=== PATIENT | female | born 1980 | race Caucasian/White ===

== ENCOUNTER → 2016-08-19 | Outpatient (CLI) | payer OTHER ==
[~2016-08-19] MED LIST: ALBU17IN INH; ATIV1TAB7 PO; BACL10TA2 PO; COLA100C PO; DIAZ5TAB PO; DOCQ100C AD; FAMO20TA PO; FLUO20CA9 PO; GABA-283 PO; GABA300C3 PO; HYDR-4274 PO; HYDR12.55 PO; HYDR25T PO; HYDR25TAB PO; KLON1TAB PO; LISI-538 PO; MELO15TA4 PO; METH75TA PO; NICO14PA TD; NORT25CA2 PO; PAXI20TA3 PO; PRAZ1CAP PO; PRAZ2CAP PO; PROZ20CA11 PO; TIZA6CAP3 PO; VIST25CA PO; ZANT300T PO; ZIPR20CA13 PO
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
== END ==
LOC: M PAIN 09:20
PROVIDERS: ATTEND Nurse Practitioner Family
DX: Z09 Encounter for follow-up examination after completed treatment for conditions other than malignant neoplasm (principal); G89.29 Other chronic pain; M70.62 Trochanteric bursitis, left hip; M79.1 Myalgia; M47.12 Other spondylosis with myelopathy, cervical region; G43.709 Chronic migraine without aura, not intractable, without status migrainosus; I10 Essential (primary) hypertension; M70.61 Trochanteric bursitis, right hip; F31.9 Bipolar disorder, unspecified; F17.200 Nicotine dependence, unspecified, uncomplicated; Z88.0 Allergy status to penicillin; Z91.040 Latex allergy status; Z88.8 Allergy status to other drugs, medicaments and biological substances; Z79.891 Long term (current) use of opiate analgesic; Z79.899 Other long term (current) drug therapy; Z87.820 Personal history of traumatic brain injury; Z91.410 Personal history of adult physical and sexual abuse

== ENCOUNTER → 2016-09-09 | Outpatient (CLI) | payer OTHER ==
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
== END ==
LOC: M PAIN 10:40
PROVIDERS: ATTEND Nurse Practitioner Family
DX: M70.62 Trochanteric bursitis, left hip (principal); M79.1 Myalgia; M47.12 Other spondylosis with myelopathy, cervical region; G43.709 Chronic migraine without aura, not intractable, without status migrainosus; Z79.891 Long term (current) use of opiate analgesic; Z79.899 Other long term (current) drug therapy; M70.61 Trochanteric bursitis, right hip; I10 Essential (primary) hypertension; J45.20 Mild intermittent asthma, uncomplicated; M43.06 Spondylolysis, lumbar region; Z88.0 Allergy status to penicillin; Z88.8 Allergy status to other drugs, medicaments and biological substances; Z91.040 Latex allergy status

== ENCOUNTER 2016-10-09 11:28 | Emergency (ER) | payer OTHER ==
[~2016-10-09] VITALS: Ht 162.6 cm; Wt 124.7 kg
[2016-10-09 11:28] VITALS: BP 129/70
[~2016-10-09 11:28] MED LIST changes: -HYDR-3713 PO; -KLON0.5T PO; -LORA10TA2 PO; -MACR100C3 PO; -MUCI600T34 PO; -PRIL20CA9 PO; -SING5CHW23 PO; -TINAZIDINE; -TOPI1TAB31 PO; -WELLTAB38 PO
[2016-10-09] MEDS ORDERED: SING5CHW23 PO (11:51)
[2016-10-09] MEDS ORDERED: WELLTAB38 PO (11:51)
[2016-10-09] MEDS ORDERED: TINAZIDINE (11:51)
[2016-10-09] MEDS ORDERED: PRIL20CA9 PO (11:51)
[2016-10-09] MEDS ORDERED: HYDR-3713 PO (11:51)
[2016-10-09] MEDS ORDERED: KLON0.5T PO (11:51)
[2016-10-09] MEDS ORDERED: MUCI600T34 PO (11:51)
[2016-10-09] MEDS ORDERED: HYDR12.55 PO (11:51)
[2016-10-09] MEDS ORDERED: LORA10TA2 PO (11:51)
[2016-10-09] MEDS ORDERED: TOPI1TAB31 PO (11:51)
[2016-10-09] MEDS ORDERED: MACR100C3 PO (13:07)
== END 2016-10-09 13:19 | disposition home or self-care (01) ==
LOC: M ED 12:45
DX: N39.0 Urinary tract infection, site not specified (principal); N92.1 Excessive and frequent menstruation with irregular cycle

== ENCOUNTER → 2016-10-09 | Outpatient (CLI) | payer OTHER ==
[~2016-10-09] MED LIST changes: +HYDR-3713 PO; +KLON0.5T PO; +LORA10TA2 PO; +MACR100C3 PO; +MUCI600T34 PO; +PRIL20CA9 PO; +SING5CHW23 PO; +TINAZIDINE; +TOPI1TAB31 PO; +WELLTAB38 PO
[2016-10-09 14:05] LABS: BASO # 0.1 K/mm3 (0.0-0.2); BASO % 0.7 % (0.0-1.0); EOS # 0.6 K/mm3 (0.0-0.50); EOS % 4.7 % (0.0-3.0); LARGE UNSTAINED CELL # 0.2 K/mm3 (0.0-0.4); LARGE UNSTAINED CELL % 1.4 % (0.0-4.0); LYMPH # 2.7 K/mm3 (1.5-4.5); LYMPH % 20.3 % (24.0-44.0); MEAN CORPUSCULAR HGB CONC 30.8 g/dl (32.0-36.5); MEAN CORPUSCULAR VOLUME 84.5 fl (80.0-96.0); MONO # 0.6 K/mm3 (0.0-0.8); NEUTROPHILS # 8.5 K/mm3 (1.8-7.7); PLATELET COUNT, AUTOMATED 357 k/mm3 (150-450); RED CELL DISTRIBUTION WIDTH 17.4 % (11.5-14.5); WHITE BLOOD COUNT 12.5 K/mm3 (4.0-10.0)
[2016-10-09 14:31] LABS: ALBUMIN 3.4 GM/DL (3.2-5.2); ALBUMIN/GLOBULIN RATIO 0.92 (1.00-1.93); ALKALINE PHOSPHATASE 129 U/L (45-117); ALT/SGPT 15 U/L (12-78); ANION GAP 8 MEQ/L (8-16); AST/SGOT 8 U/L (15-37); BILIRUBIN,TOTAL 0.1 MG/DL (0.2-1.0); BLOOD UREA NITROGEN 14 MG/DL (7-18); CALCIUM LEVEL 8.8 MG/DL (8.5-10.1); CARBON DIOXIDE LEVEL 28 MEQ/L (21-32); CHLORIDE LEVEL 107 MEQ/L (98-107); CHOLESTEROL LEVEL 182 MG/DL (<200); CREATININE FOR GFR 0.91 MG/DL (0.55-1.02); GLOMERULAR FILTRATION RATE > 60.0 (>60); GLUCOSE, FASTING 100 MG/DL (70-105); POTASSIUM SERUM 3.5 MEQ/L (3.5-5.1); SODIUM LEVEL 143 MEQ/L (136-145); TOTAL PROTEIN 7.1 GM/DL (6.4-8.2); TRIGLYCERIDES LEVEL 116 MG/DL (<150)
== END ==
LOC: M LAB 13:25
PROVIDERS: ATTEND Family Medicine Addiction Medicine
DX: R00.0 Tachycardia, unspecified (principal)

== ENCOUNTER → 2016-10-14 | Outpatient (CLI) | payer OTHER ==
[~2016-10-14] MED LIST changes: +HYDR-3713 PO; +KLON0.5T PO; +LORA10TA2 PO; +MACR100C3 PO; +MUCI600T34 PO; +PRIL20CA9 PO; +SING5CHW23 PO; +TINAZIDINE; +TOPI1TAB31 PO; +WELLTAB38 PO
--- NOTE | 2016-10-14 11:38 | REP ---
Clinical: Pain with recent trauma/fall. Comparison: 07/22/2015. Technique: AP, lateral, bilateral oblique, flexion/extension and coned-down views. Findings: The alignment and lordosis maintained and there is no evidence for acute fracture / compression injury or subluxation. Moderate degenerative disc osteophyte complex at the L4-5 and L5-S1 levels again noted and essentially unchanged. Findings include anterior osteophytes with endplate sclerosis and disc space narrowing and mild hypertrophic facet changes. Impression: 1. No acute fracture / compression injury or subluxation. 2. Moderate degenerative disc osteophyte complex at the L4-5 and L5-S1 levels. Signed by Gudreep Ramos MD 10/14/2016 11:30 A
== END ==
LOC: M RAD 11:04
PROVIDERS: ATTEND Nurse Practitioner Family
DX: M51.36 Other intervertebral disc degeneration, lumbar region (principal); M51.37 Other intervertebral disc degeneration, lumbosacral region

== ENCOUNTER → 2016-10-14 | Outpatient (CLI) | payer OTHER ==
[~2016-10-14] MED LIST changes: -COLA100C PO; +COLA100C3 PO; +GABA-282 PO; -GABA300C3 PO
== END ==
LOC: M PAIN 10:00
PROVIDERS: ATTEND Nurse Practitioner Family
DX: M79.1 Myalgia (principal); M43.06 Spondylolysis, lumbar region; Z79.891 Long term (current) use of opiate analgesic; Z79.899 Other long term (current) drug therapy; I10 Essential (primary) hypertension; G43.709 Chronic migraine without aura, not intractable, without status migrainosus; J45.20 Mild intermittent asthma, uncomplicated; Z88.0 Allergy status to penicillin; Z88.8 Allergy status to other drugs, medicaments and biological substances; Z91.040 Latex allergy status

== ENCOUNTER → 2016-11-09 | Outpatient (CLI) | payer OTHER ==
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
== END ==
LOC: M PAIN 10:00
PROVIDERS: ATTEND Nurse Practitioner Family
DX: M79.1 Myalgia (principal); M43.06 Spondylolysis, lumbar region; I10 Essential (primary) hypertension; K30 Functional dyspepsia; Z79.891 Long term (current) use of opiate analgesic; Z79.899 Other long term (current) drug therapy; Z88.0 Allergy status to penicillin; Z88.8 Allergy status to other drugs, medicaments and biological substances; Z91.040 Latex allergy status

== ENCOUNTER → 2016-11-24 | Outpatient (CLI) | payer OTHER ==
--- NOTE | 2016-11-24 12:29 | REP ---
Maxillofacial CT study without IV contrast: History: Recurrent sinusitis. No comparison imaging. Technique: Helical scanning is acquired and 3 mm contiguous axial images are reformatted. Coronal multiplanar re-formation images are generated and reviewed. Maxillofacial CT findings: The maxilla is edentulous. The frontal, ethmoidal, sphenoidal, maxillary, and mastoid aeration is normal. There is minimal mucosal thickening in the floor of the left maxillary sinus. Bony sinus margins are intact. No bony destructive lesion is seen. No intraorbital abnormality is appreciated. The visualized intracranial structures are unremarkable. Bony nasal septum deviates somewhat to the left without a visible beak. Nasal turbinate soft tissues are symmetric. There is mild bilateral narrowing of the OMCs. No significant malformation is seen. Nasal ethmoid recesses are patent. Impression: Minimal mucosal thickening floor of the left maxillary sinus. Otherwise negative. Signed by Ken Cook MD 11/24/2016 01:00 P
== END ==
LOC: M RAD 09:03
PROVIDERS: ATTEND Otolaryngology
DX: J32.0 Chronic maxillary sinusitis (principal)

== ENCOUNTER → 2016-12-20 | Outpatient (CLI) | payer OTHER ==
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
== END ==
LOC: M PAIN 10:00
PROVIDERS: ATTEND Nurse Practitioner Family
DX: M79.1 Myalgia (principal); M43.06 Spondylolysis, lumbar region; G89.29 Other chronic pain; Z79.891 Long term (current) use of opiate analgesic; Z79.899 Other long term (current) drug therapy; Z88.0 Allergy status to penicillin; Z88.8 Allergy status to other drugs, medicaments and biological substances; Z91.040 Latex allergy status; I10 Essential (primary) hypertension; J45.20 Mild intermittent asthma, uncomplicated; M47.12 Other spondylosis with myelopathy, cervical region; G43.709 Chronic migraine without aura, not intractable, without status migrainosus; M70.62 Trochanteric bursitis, left hip; M70.61 Trochanteric bursitis, right hip

== ENCOUNTER → 2017-01-18 | Outpatient (CLI) | payer OTHER ==
[~2017-01-18] MED LIST changes: +CHERSYP3 PO; -COLA100C3 PO; +COLA100C5 PO; +CYCL5TAB PO; +FLUO20CA19 PO; -FLUO20CA9 PO; +HYDR-3363 PO; +HYDR-3713; -HYDR-4274 PO; -HYDR25T PO; +HYDR50TA70 PO; +IBUP80TA PO; +IMIT50TA PO; +IPRASOL4 IN; +LEVA750T7 PO; -MACR100C3 PO; +MACR100C43 PO; -MUCI600T34 PO; +MUCI600T37 PO; +PAXI20TA29 PO; -PAXI20TA3 PO; +RANI15TA PO; +REXU1TAB3; +TESS100C PO; +TOPI100T9 PO; -TOPI1TAB31 PO
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
== END ==
LOC: M PAIN 14:40
PROVIDERS: ATTEND Nurse Practitioner Family
DX: M54.2 Cervicalgia (principal); M79.1 Myalgia; M43.06 Spondylolysis, lumbar region; Z79.891 Long term (current) use of opiate analgesic; Z79.899 Other long term (current) drug therapy; Z88.0 Allergy status to penicillin; Z88.8 Allergy status to other drugs, medicaments and biological substances; Z91.040 Latex allergy status; I10 Essential (primary) hypertension; G43.709 Chronic migraine without aura, not intractable, without status migrainosus

== ENCOUNTER → 2017-02-14 | Outpatient (CLI) | payer OTHER | LOC: M PAIN 11:00 | PROVIDERS: ATTEND Nurse Practitioner Family | DX: M79.1 Myalgia (principal); Z53.20 Procedure and treatment not carried out because of patient's decision for unspecified reasons ==

== ENCOUNTER → 2017-02-22 | Outpatient (CLI) | payer OTHER ==
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
== END ==
LOC: M PAIN 14:15
PROVIDERS: ATTEND Nurse Practitioner Family
DX: G89.29 Other chronic pain (principal); M43.06 Spondylolysis, lumbar region; G43.709 Chronic migraine without aura, not intractable, without status migrainosus; M47.12 Other spondylosis with myelopathy, cervical region; M79.1 Myalgia; I10 Essential (primary) hypertension; K21.9 Gastro-esophageal reflux disease without esophagitis; F31.9 Bipolar disorder, unspecified; Z88.0 Allergy status to penicillin; Z91.040 Latex allergy status; Z88.8 Allergy status to other drugs, medicaments and biological substances; Z79.891 Long term (current) use of opiate analgesic; Z79.899 Other long term (current) drug therapy

== ENCOUNTER → 2017-04-12 | Outpatient (CLI) | payer OTHER ==
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
== END ==
LOC: M PAIN 13:45
PROVIDERS: ATTEND Nurse Practitioner Family
DX: G89.29 Other chronic pain (principal); M43.06 Spondylolysis, lumbar region; G43.709 Chronic migraine without aura, not intractable, without status migrainosus; M47.12 Other spondylosis with myelopathy, cervical region; M79.1 Myalgia; I10 Essential (primary) hypertension; F31.9 Bipolar disorder, unspecified; F17.210 Nicotine dependence, cigarettes, uncomplicated; Z88.0 Allergy status to penicillin; Z91.040 Latex allergy status; Z88.8 Allergy status to other drugs, medicaments and biological substances; Z79.899 Other long term (current) drug therapy

== ENCOUNTER → 2017-04-26 | Outpatient (CLI) | payer OTHER ==
[~2017-04-26] MED LIST changes: +BUPIVACAINE HCL 0.25% 10 ML VIAL As Ordered ONE; +BUPIVACAINE HCL 0.25% 30 ML VIAL As Ordered ONE; +TRIAMCINOLONE ACETONIDE SUSP 40 MG/ML VIAL (J3301) As Ordered ONE; +diazePAM 5 MG TAB As Ordered ONE; +oxyCODONE 5MG TAB As Ordered ONE
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
== END ==
LOC: M PAIN 14:30
PROVIDERS: ATTEND Anesthesiology
DX: G89.29 Other chronic pain (principal); M79.1 Myalgia; Z79.891 Long term (current) use of opiate analgesic; Z79.899 Other long term (current) drug therapy; I10 Essential (primary) hypertension; F31.9 Bipolar disorder, unspecified; F17.210 Nicotine dependence, cigarettes, uncomplicated; Z88.0 Allergy status to penicillin; Z91.040 Latex allergy status; Z88.8 Allergy status to other drugs, medicaments and biological substances
CPT/HCPCS: 20553; J3301

== ENCOUNTER 2017-04-28 09:47 | Emergency (ER) | payer OTHER ==
[~2017-04-28] VITALS: Ht 162.6 cm; Wt 131.4 kg
[~2017-04-28 09:47] MED LIST changes: -BUPIVACAINE HCL 0.25% 10 ML VIAL As Ordered ONE; -BUPIVACAINE HCL 0.25% 30 ML VIAL As Ordered ONE; -CHERSYP3 PO; -CYCL5TAB PO; -HYDR-3713; -IBUP80TA PO; -IMIT50TA PO; -IPRASOL4 IN; -LEVA750T7 PO; -RANI15TA PO; -REXU1TAB3; -TESS100C PO; -TRIAMCINOLONE ACETONIDE SUSP 40 MG/ML VIAL (J3301) As Ordered ONE; -diazePAM 5 MG TAB As Ordered ONE; -oxyCODONE 5MG TAB As Ordered ONE
[2017-04-28] MEDS ORDERED: RANI15TA PO (09:58)
[2017-04-28] MEDS ORDERED: REXU1TAB3 (09:58)
[2017-04-28] MEDS ORDERED: NORCO, ANEXSIA 5/325MG TABLET (HYDROcodone/ACETAMINOPHEN) PO ONE (10:15)
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
[2017-04-28] MEDS ORDERED: IBUP80TA PO (11:14)
[2017-04-28 11:28] VITALS: BP 124/86
== END 2017-04-28 11:29 | disposition home or self-care (01) ==
LOC: M ED 09:47
DX: S70.01XA Contusion of right hip, initial encounter (principal); S80.01XA Contusion of right knee, initial encounter; J45.909 Unspecified asthma, uncomplicated; K58.9 Irritable bowel syndrome, unspecified; M79.7 Fibromyalgia; F31.9 Bipolar disorder, unspecified; M54.5 Low back pain; F17.210 Nicotine dependence, cigarettes, uncomplicated; W10.9XXA Fall (on) (from) unspecified stairs and steps, initial encounter; Y92.018 Other place in single-family (private) house as the place of occurrence of the external cause; Y99.9 Unspecified external cause status; Y93.9 Activity, unspecified; Z88.0 Allergy status to penicillin; Z88.8 Allergy status to other drugs, medicaments and biological substances; Z91.040 Latex allergy status; Z79.899 Other long term (current) drug therapy

== ENCOUNTER → 2017-05-08 | Outpatient (REF) | payer OTHER ==
[~2017-05-08] MED LIST changes: +CHERSYP3 PO; +CYCL5TAB PO; +HYDR-3713; +IBUP80TA PO; +IMIT50TA PO; +IPRASOL4 IN; +LEVA750T7 PO; +RANI15TA PO; +REXU1TAB3; +TESS100C PO
== END ==
LOC: M LAB REF 16:11
PROVIDERS: ATTEND Physician Assistant
DX: N39.0 Urinary tract infection, site not specified (principal)

== ENCOUNTER 2017-05-10 18:46 | Emergency (ER) | payer OTHER ==
[~2017-05-10] VITALS: Ht 165.1 cm; Wt 131.4 kg
[~2017-05-10 18:46] MED LIST changes: -CHERSYP3 PO; -CYCL5TAB PO; -HYDR-3713; -IMIT50TA PO; -IPRASOL4 IN; -LEVA750T7 PO; -TESS100C PO
[2017-05-10] MEDS ORDERED: HYDR-3713 (19:06)
[2017-05-10] MEDS ORDERED: IMIT50TA PO (19:06)
[2017-05-10] MEDS ORDERED: CYCL5TAB PO (19:06)
[2017-05-10] MEDS ORDERED: IPRATROPIUM 0.5MG/ALBUTEROL 2.5MG INH SOL UD 3ML (DUONEB)(J7620) NEB ONE (20:45)
[2017-05-10 21:18] VITALS: BP 124/65
[2017-05-10] MEDS ORDERED: IPRASOL4 IN (21:44)
[2017-05-10] MEDS ORDERED: TESS100C PO (21:44)
[2017-05-10] MEDS ORDERED: CHERSYP3 PO (21:44)
[2017-05-10] MEDS ORDERED: LEVA750T7 PO (21:44)
[2017-05-10] MEDS ORDERED: LevoFLOXacin 750 MG TABLET PO ONE (22:00)
[2017-05-10] MEDS ORDERED: guaiFENesin SYRUP 200 MG/10 ML UDC PO ONE (22:00)
--- NOTE | 2017-05-11 07:53 | REP ---
PA and lateral chest: I suspect there is a small subsegmental infiltrate superimposed over the cardiac apex, likely in the lingula. There is chronic elevation of the right hemidiaphragm. Lung dave otherwise clear. Cardiac size normal. The nicolas, mediastinum, bony thorax are unremarkable. Impression: Subsegmental infiltrate in the lingula. Signed by Satish Coyne MD 05/11/2017 07:44 A
== END 2017-05-10 21:57 | disposition home or self-care (01) ==
LOC: M ED 18:46
DX: R05 Cough (principal); R06.00 Dyspnea, unspecified; J45.909 Unspecified asthma, uncomplicated; M79.7 Fibromyalgia; F41.9 Anxiety disorder, unspecified; F33.9 Major depressive disorder, recurrent, unspecified; F43.10 Post-traumatic stress disorder, unspecified; F60.9 Personality disorder, unspecified; Z79.899 Other long term (current) drug therapy; Z88.0 Allergy status to penicillin; Z88.8 Allergy status to other drugs, medicaments and biological substances; Z91.040 Latex allergy status; F17.210 Nicotine dependence, cigarettes, uncomplicated

== ENCOUNTER → 2017-05-24 | Outpatient (CLI) | payer OTHER ==
[~2017-05-24] MED LIST changes: +CHERSYP3 PO; +CYCL5TAB PO; +HYDR-3713; +IMIT50TA PO; +IPRASOL4 IN; +LEVA750T7 PO; +TESS100C PO
== END ==
LOC: M PAIN 10:15
PROVIDERS: ATTEND Nurse Practitioner Family
DX: Z53.29 Procedure and treatment not carried out because of patient's decision for other reasons (principal)

== ENCOUNTER → 2017-06-28 | Outpatient (CLI) | payer OTHER | LOC: M PAIN 10:15 | DX: G89.29 Other chronic pain (principal); M79.1 Myalgia; M43.06 Spondylolysis, lumbar region; G43.709 Chronic migraine without aura, not intractable, without status migrainosus; M47.12 Other spondylosis with myelopathy, cervical region; K21.9 Gastro-esophageal reflux disease without esophagitis; F31.89 Other bipolar disorder; F17.210 Nicotine dependence, cigarettes, uncomplicated; R03.0 Elevated blood-pressure reading, without diagnosis of hypertension; Z79.891 Long term (current) use of opiate analgesic; Z79.899 Other long term (current) drug therapy; Z88.0 Allergy status to penicillin; Z88.8 Allergy status to other drugs, medicaments and biological substances; Z91.040 Latex allergy status | CPT/HCPCS: G0463 ==

== ENCOUNTER → 2017-07-04 | Outpatient (REF) | payer OTHER | LOC: M LAB REF 17:29 | PROVIDERS: ATTEND Family Medicine Addiction Medicine | DX: Z12.4 Encounter for screening for malignant neoplasm of cervix (principal); B37.3 Candidiasis of vulva and vagina ==

== ENCOUNTER → 2017-07-24 | Outpatient (CLI) | payer OTHER ==
[2017-07-24 12:10] LABS: HEMATOCRIT 40.7 % (36.0-47.0); HEMOGLOBIN 12.3 g/dl (12.0-16.0); MEAN CORPUSCULAR HEMOGLOBIN 23.9 pg (27.0-33.0); MEAN CORPUSCULAR HGB CONC 30.2 g/dl (32.0-36.5); MEAN CORPUSCULAR VOLUME 79.2 fl (80.0-96.0); PLATELET COUNT, AUTOMATED 403 10^3/uL (150-450); RED BLOOD COUNT 5.14 10^6/uL (4.00-5.40); RED CELL DISTRIBUTION WIDTH 18.6 % (11.5-14.5); WHITE BLOOD COUNT 11.5 10^3/uL (4.0-10.0)
[2017-07-24 12:40] LABS: ALBUMIN 3.4 GM/DL (3.2-5.2); ALBUMIN/GLOBULIN RATIO 1.03 (1.00-1.93); ALKALINE PHOSPHATASE 104 U/L (45-117); ALT/SGPT 18 U/L (12-78); ANION GAP 5 MEQ/L (8-16); AST/SGOT 11 U/L (7-37); BILIRUBIN,TOTAL 0.3 MG/DL (0.2-1.0); BLOOD UREA NITROGEN 9 MG/DL (7-18); CALCIUM LEVEL 8.3 MG/DL (8.5-10.1); CARBON DIOXIDE LEVEL 35 MEQ/L (21-32); CHLORIDE LEVEL 102 MEQ/L (98-107); FREE THYROXINE INDEX 3.5 % (1.3-4.8); GLOMERULAR FILTRATION RATE > 60.0 (>60); GLUCOSE, FASTING 79 MG/DL (70-105); POTASSIUM SERUM 3.7 MEQ/L (3.5-5.1); SODIUM LEVEL 142 MEQ/L (136-145); T UPTAKE 31 % (30-39); THYROXINE (T4) 11.4 UG/DL (4.5-12.0); TOTAL PROTEIN 6.7 GM/DL (6.4-8.2)
[2017-07-24 13:53] LABS: ESTIMATED AVERAGE GLUCOSE 126 MG/DL (60-110)
== END ==
LOC: M LAB 11:13
DX: F31.32 Bipolar disorder, current episode depressed, moderate (principal)
CPT/HCPCS: 84443

== ENCOUNTER → 2017-09-07 | Outpatient (CLI) | payer OTHER | LOC: M PAIN 10:15 | DX: M79.1 Myalgia (principal); M43.06 Spondylolysis, lumbar region; G43.709 Chronic migraine without aura, not intractable, without status migrainosus; M47.12 Other spondylosis with myelopathy, cervical region; I10 Essential (primary) hypertension; F41.9 Anxiety disorder, unspecified; F43.10 Post-traumatic stress disorder, unspecified; F17.210 Nicotine dependence, cigarettes, uncomplicated; Z79.899 Other long term (current) drug therapy; Z88.0 Allergy status to penicillin; Z88.8 Allergy status to other drugs, medicaments and biological substances; Z91.040 Latex allergy status | CPT/HCPCS: G0463 ==

== ENCOUNTER 2017-11-13 15:57 | Emergency (ER) | payer OTHER ==
[2017-11-13] MEDS: IPRATROPIUM 0.5MG/ALBUTEROL 2.5MG INH SOL UD 3ML (DUONEB)(J7620) NEB (17:59)
[2017-11-13 18:34] LABS: INFLUENZA A AMPLIFICATION NEGATIVE (NEGATIVE); INFLUENZA B AMPLIFICATION NEGATIVE (NEGATIVE)
== END 2017-11-13 18:41 | disposition home or self-care (01) ==
LOC: M ED 15:57
DX: J06.9 Acute upper respiratory infection, unspecified (principal); R06.2 Wheezing; J45.909 Unspecified asthma, uncomplicated; M79.7 Fibromyalgia; K21.9 Gastro-esophageal reflux disease without esophagitis; M54.9 Dorsalgia, unspecified; F17.200 Nicotine dependence, unspecified, uncomplicated; Z79.899 Other long term (current) drug therapy; Z91.040 Latex allergy status; Z88.0 Allergy status to penicillin; Z88.8 Allergy status to other drugs, medicaments and biological substances
CPT/HCPCS: 94640

== ENCOUNTER 2018-01-07 17:05 | Inpatient (IN) | payer MEDICAID, OTHER ==
[2018-01-07 18:30] LABS: HEMATOCRIT 40.9 % (36.0-47.0); HEMOGLOBIN 12.9 g/dl (12.0-15.5); MEAN CORPUSCULAR HEMOGLOBIN 26.2 pg (27.0-33.0); MEAN CORPUSCULAR HGB CONC 31.5 g/dl (32.0-36.5); MEAN CORPUSCULAR VOLUME 83.1 fl (80.0-96.0); PLATELET COUNT, AUTOMATED 341 10^3/uL (150-450); RED BLOOD COUNT 4.92 10^6/uL (4.00-5.40); RED CELL DISTRIBUTION WIDTH 18.6 % (11.5-14.5); WHITE BLOOD COUNT 13.2 10^3/uL (4.0-10.0)
[2018-01-07] MEDS: LORazepam 2 MG TAB PO (18:36)
[2018-01-07 18:48] LABS: CONTROL LINE HCG INT CTR LINE PRESENT; HCG, SERUM QUALITATIVE NEGATIVE (NEGATIVE)
[2018-01-07 18:53] LABS: AMPHETAMINES LEVEL URINE NEGATIVE (NEGATIVE); BARBITURATES URINE NEGATIVE (NEGATIVE); BENZODIAZEPINES URINE NEGATIVE (NEGATIVE); CANNABINOIDS URINE POSITIVE (NEGATIVE); COCAINE METABOLITE URINE NEGATIVE (NEGATIVE); METHADONE URINE NEGATIVE (NEGATIVE); OPIATES URINE NEGATIVE (NEGATIVE); PHENCYCLIDINE URINE NEGATIVE (NEGATIVE)
[2018-01-07] MEDS ORDERED: traZODone 50 MG TAB PO (19:00)
[2018-01-07] MEDS ORDERED: ACETAMINOPHEN TAB 650MG DOSE (2X325MG) PO ×2 (19:00→19:15)
[2018-01-07] MEDS ORDERED: MOM 30ML SUSPENSION UDC PO ×2 (19:00→19:15)
[2018-01-07 19:05] LABS: ALBUMIN 3.5 GM/DL (3.2-5.2); ALBUMIN/GLOBULIN RATIO 0.92 (1.00-1.93); ALKALINE PHOSPHATASE 141 U/L (45-117); ALT/SGPT 20 U/L (12-78); ANION GAP 10 MEQ/L (8-16); AST/SGOT 11 U/L (7-37); BILIRUBIN,DIRECT < 0.1 MG/DL (0.0-0.2); BILIRUBIN,TOTAL 0.2 MG/DL (0.2-1.0); BLOOD UREA NITROGEN 8 MG/DL (7-18); CALCIUM LEVEL 8.2 MG/DL (8.5-10.1); CARBON DIOXIDE LEVEL 30 MEQ/L (21-32); CHLORIDE LEVEL 101 MEQ/L (98-107); CREATININE FOR GFR 1.09 MG/DL (0.55-1.30); ETHYL ALCOHOL (ETHANOL) < 0.003 % (0.000-0.010); GLOMERULAR FILTRATION RATE 59.5 (>60); GLUCOSE, FASTING 81 MG/DL (70-100); SALICYLATE LEVEL 3.9 MG/DL (5.0-30.0); SODIUM LEVEL 141 MEQ/L (136-145); THYROID STIMULATING HORMONE 0.554 uIU/ML (0.358-3.740); TOTAL PROTEIN 7.3 GM/DL (6.4-8.2)
[2018-01-07 19:11] LABS: ACETAMINOPHEN LEVEL < 2.0 UG/ML (10.0-30.0)
[2018-01-07] MEDS ORDERED: MAALOX 30 ML SUSP *UDC PO (19:15)
[2018-01-07] MEDS: MAALOX 30 ML SUSP *UDC PO (20:57)
[2018-01-07] MEDS: MIRTAZAPINE 15 MG TAB PO (21:21)
[2018-01-07] MEDS: FAMOTIDINE 20 MG TAB PO (21:21)
[2018-01-07] MEDS: hydrOXYzine 50 MG TAB PO (21:23)
[2018-01-07] MEDS: POTASSIUM CHLORIDE 10% LIQ 20 MEQ/15 ML UDC PO (22:22)
[2018-01-08] MEDS: NICOTINE 21MG/24HR 1 EA TRANSDERMAL TD (08:45)
[2018-01-08] MEDS: hydrOXYzine 50 MG TAB PO ×2 (08:45→16:57)
[2018-01-08] MEDS: ATORVASTATIN 10 MG TAB PO (08:45)
[2018-01-08] MEDS: FAMOTIDINE 20 MG TAB PO ×2 (08:45→20:55)
[2018-01-08] MEDS ORDERED: ALBUTEROL 90 MCG/ACT 8GM HFA INHALER INH (11:00)
[2018-01-08] MEDS: SUMAtriptan SUCCINATE 25 MG TAB PO (11:40)
[2018-01-08] MEDS: LORazepam 0.5 MG TAB PO (11:40)
[2018-01-08] MEDS: LORATADINE 10 MG TAB PO (11:41)
[2018-01-08] MEDS: FLUTICASONE PROP 0.05% NASAL SPRAY 16 GM (FLONASE) (12:40)
[2018-01-08] MEDS: clonazePAM 1 MG TAB PO (19:13)
[2018-01-08] MEDS: MIRTAZAPINE 15 MG TAB PO (20:55)
[2018-01-08] MEDS: TOPIRAMATE (TopAMAX) 100 MG TAB PO (20:55)
[2018-01-09] MEDS: hydrOXYzine 50 MG TAB PO ×4 (00:59→22:15)
[2018-01-09 07:43] LABS: HEMATOCRIT 40.6 % (36.0-47.0); HEMOGLOBIN 12.9 g/dl (12.0-15.5); MEAN CORPUSCULAR HEMOGLOBIN 26.8 pg (27.0-33.0); MEAN CORPUSCULAR HGB CONC 31.8 g/dl (32.0-36.5); MEAN CORPUSCULAR VOLUME 84.2 fl (80.0-96.0); PLATELET COUNT, AUTOMATED 306 10^3/uL (150-450); RED BLOOD COUNT 4.82 10^6/uL (4.00-5.40); RED CELL DISTRIBUTION WIDTH 18.8 % (11.5-14.5); WHITE BLOOD COUNT 10.2 10^3/uL (4.0-10.0)
[2018-01-09] MEDS: TOPIRAMATE (TopAMAX) 25 MG TAB PO (08:05)
[2018-01-09] MEDS: LORATADINE 10 MG TAB PO (08:05)
[2018-01-09] MEDS: ATORVASTATIN 10 MG TAB PO (08:05)
[2018-01-09] MEDS: FLUTICASONE PROP 0.05% NASAL SPRAY 16 GM (FLONASE) (08:05)
[2018-01-09] MEDS: FAMOTIDINE 20 MG TAB PO ×2 (08:05→21:11)
[2018-01-09] MEDS: FLUoxetine 20 MG CAP PO (08:05)
[2018-01-09 08:33] LABS: ANION GAP 8 MEQ/L (8-16); BLOOD UREA NITROGEN 9 MG/DL (7-18); CARBON DIOXIDE LEVEL 32 MEQ/L (21-32); CHLORIDE LEVEL 106 MEQ/L (98-107); CREATININE FOR GFR 0.94 MG/DL (0.55-1.30); GLOMERULAR FILTRATION RATE > 60.0 (>60); GLUCOSE, FASTING 91 MG/DL (70-100); POTASSIUM SERUM 3.3 MEQ/L (3.5-5.1); SODIUM LEVEL 146 MEQ/L (136-145)
[2018-01-09] MEDS: POTASSIUM CHLORIDE 10 MEQ SR TABLET PO (09:42)
[2018-01-09] MEDS: NICOTINE 21MG/24HR 1 EA TRANSDERMAL TD (09:42)
[2018-01-09] MEDS: clonazePAM 1 MG TAB PO ×2 (11:27→21:11)
[2018-01-09] MEDS: oxyCODONE 5MG TAB PO (18:07)
[2018-01-09] MEDS: TOPIRAMATE (TopAMAX) 100 MG TAB PO (21:11)
[2018-01-09] MEDS: MIRTAZAPINE 15 MG TAB PO (21:12)
[2018-01-09] MEDS: GABAPENTIN 100 MG CAP PO (21:12)
[2018-01-10] MEDS: oxyCODONE 5MG TAB PO ×3 (07:21→19:48)
[2018-01-10 07:33] LABS: HEMOGLOBIN 12.4 g/dl (12.0-15.5); MEAN CORPUSCULAR HEMOGLOBIN 26.2 pg (27.0-33.0); MEAN CORPUSCULAR VOLUME 84.4 fl (80.0-96.0); PLATELET COUNT, AUTOMATED 314 10^3/uL (150-450); RED BLOOD COUNT 4.74 10^6/uL (4.00-5.40); RED CELL DISTRIBUTION WIDTH 18.6 % (11.5-14.5); WHITE BLOOD COUNT 9.4 10^3/uL (4.0-10.0)
[2018-01-10 07:51] LABS: ANION GAP 6 MEQ/L (8-16); BLOOD UREA NITROGEN 8 MG/DL (7-18); CALCIUM LEVEL 8.1 MG/DL (8.5-10.1); CARBON DIOXIDE LEVEL 34 MEQ/L (21-32); CHLORIDE LEVEL 106 MEQ/L (98-107); CREATININE FOR GFR 1.01 MG/DL (0.55-1.30); GLOMERULAR FILTRATION RATE > 60.0 (>60); GLUCOSE, FASTING 85 MG/DL (70-100); POTASSIUM SERUM 3.4 MEQ/L (3.5-5.1); SODIUM LEVEL 146 MEQ/L (136-145)
[2018-01-10] MEDS: POTASSIUM CHLORIDE 10 MEQ SR TABLET PO (08:19)
[2018-01-10] MEDS: NICOTINE 21MG/24HR 1 EA TRANSDERMAL TD (08:19)
[2018-01-10] MEDS: FLUoxetine 20 MG CAP PO (08:19)
[2018-01-10] MEDS: GABAPENTIN 100 MG CAP PO ×2 (08:19→22:14)
[2018-01-10] MEDS: FLUTICASONE PROP 0.05% NASAL SPRAY 16 GM (FLONASE) (08:19)
[2018-01-10] MEDS: LORATADINE 10 MG TAB PO (08:20)
[2018-01-10] MEDS: FAMOTIDINE 20 MG TAB PO ×2 (08:20→22:15)
[2018-01-10] MEDS: ATORVASTATIN 10 MG TAB PO (08:20)
[2018-01-10] MEDS: LORazepam 1 MG TAB PO (08:20)
[2018-01-10] MEDS: TOPIRAMATE (TopAMAX) 100 MG TAB PO ×2 (08:20→22:15)
[2018-01-10] MEDS: hydrOXYzine 50 MG TAB PO (12:22)
[2018-01-10 12:37] LABS: ALBUMIN 2.8 GM/DL (3.2-5.2); ALBUMIN/GLOBULIN RATIO 0.67 (1.00-1.93); ALKALINE PHOSPHATASE 125 U/L (45-117); ALT/SGPT 19 U/L (12-78); AST/SGOT 11 U/L (7-37); BILIRUBIN,DIRECT 0.1 MG/DL (0.0-0.2); BILIRUBIN,TOTAL 0.4 MG/DL (0.2-1.0)
[2018-01-10] MEDS ORDERED: TOPIRAMATE (TopAMAX) 100 MG TAB PO (21:00)
[2018-01-10] MEDS: MIRTAZAPINE 15 MG TAB PO (22:14)
[2018-01-10] MEDS: LORazepam 0.5 MG TAB PO (22:15)
[2018-01-10] MEDS: TOPIRAMATE (TopAMAX) 25 MG TAB PO (22:15)
[2018-01-10] MEDS: clonazePAM 0.5 MG TAB PO (22:15)
[2018-01-11] MEDS: CETIRIZINE (ZyrTEC) 10 MG TAB PO (06:12)
[2018-01-11 07:30] LABS: ANION GAP 4 MEQ/L (8-16); BLOOD UREA NITROGEN 7 MG/DL (7-18); CALCIUM LEVEL 8.3 MG/DL (8.5-10.1); CARBON DIOXIDE LEVEL 35 MEQ/L (21-32); CHLORIDE LEVEL 108 MEQ/L (98-107); CHOLESTEROL LEVEL 82 MG/DL (<200); CHOLESTEROL RISK RATIO 2.645 (<5); CREATININE FOR GFR 0.94 MG/DL (0.55-1.30); GLOMERULAR FILTRATION RATE > 60.0 (>60); GLUCOSE, FASTING 81 MG/DL (70-100); HDL CHOLESTEROL 31 MG/DL (>40); NON-HDL-C 51 MG/DL; POTASSIUM SERUM 3.7 MEQ/L (3.5-5.1); SODIUM LEVEL 147 MEQ/L (136-145); TRIGLYCERIDES LEVEL 110 MG/DL (<150)
[2018-01-11] MEDS: FLUTICASONE PROP 0.05% NASAL SPRAY 16 GM (FLONASE) (08:35)
[2018-01-11] MEDS: GABAPENTIN 100 MG CAP PO ×2 (08:36→21:06)
[2018-01-11] MEDS: LORazepam 1 MG TAB PO ×2 (08:36→21:06)
[2018-01-11] MEDS: TOPIRAMATE (TopAMAX) 100 MG TAB PO ×2 (08:36→21:07)
[2018-01-11] MEDS: FAMOTIDINE 20 MG TAB PO ×2 (08:36→21:07)
[2018-01-11] MEDS: ATORVASTATIN 10 MG TAB PO (08:36)
[2018-01-11] MEDS: NICOTINE 21MG/24HR 1 EA TRANSDERMAL TD (08:36)
[2018-01-11] MEDS: FLUoxetine 20 MG CAP PO (08:36)
[2018-01-11] MEDS: oxyCODONE 5MG TAB PO ×3 (08:38→21:08)
[2018-01-11] MEDS: hydrOXYzine 50 MG TAB PO ×2 (11:48→17:56)
[2018-01-11] MEDS: TOPIRAMATE (TopAMAX) 25 MG TAB PO (21:06)
[2018-01-11] MEDS: MIRTAZAPINE 15 MG TAB PO (21:06)
[2018-01-12] MEDS: hydrOXYzine 50 MG TAB PO ×2 (00:21→09:20)
[2018-01-12] MEDS: CETIRIZINE (ZyrTEC) 10 MG TAB PO (06:11)
[2018-01-12] MEDS: NICOTINE 21MG/24HR 1 EA TRANSDERMAL TD (08:06)
[2018-01-12] MEDS: TOPIRAMATE (TopAMAX) 100 MG TAB PO (08:06)
[2018-01-12] MEDS: FLUTICASONE PROP 0.05% NASAL SPRAY 16 GM (FLONASE) (08:06)
[2018-01-12] MEDS: FLUoxetine 20 MG CAP PO (08:06)
[2018-01-12] MEDS: GABAPENTIN 100 MG CAP PO (08:06)
[2018-01-12] MEDS: FAMOTIDINE 20 MG TAB PO (08:07)
[2018-01-12] MEDS: oxyCODONE 5MG TAB PO (08:07)
[2018-01-12] MEDS: ATORVASTATIN 10 MG TAB PO (08:07)
[2018-01-12] MEDS: LORazepam 1 MG TAB PO (08:07)
== END 2018-01-12 13:18 | disposition home or self-care (01) | DRG 882 ==
LOC: M PSY 01-10 11:00 → M ED 17:05 → M PSY 20:10
DX: F43.10 Post-traumatic stress disorder, unspecified (principal); Z88.0 Allergy status to penicillin; Z91.040 Latex allergy status; Z88.8 Allergy status to other drugs, medicaments and biological substances; M79.7 Fibromyalgia; K21.9 Gastro-esophageal reflux disease without esophagitis; Z90.49 Acquired absence of other specified parts of digestive tract; G89.29 Other chronic pain; E87.6 Hypokalemia; E78.00 Pure hypercholesterolemia, unspecified; G43.909 Migraine, unspecified, not intractable, without status migrainosus; I10 Essential (primary) hypertension; J30.9 Allergic rhinitis, unspecified; F32.9 Major depressive disorder, single episode, unspecified

== ENCOUNTER → 2018-01-19 | Outpatient (CLI) | payer OTHER | LOC: M PAIN 08:45 | DX: M79.1 Myalgia (principal); M43.06 Spondylolysis, lumbar region; G43.709 Chronic migraine without aura, not intractable, without status migrainosus; M47.12 Other spondylosis with myelopathy, cervical region; I10 Essential (primary) hypertension; R73.03 Prediabetes; F43.10 Post-traumatic stress disorder, unspecified; F41.9 Anxiety disorder, unspecified; F17.210 Nicotine dependence, cigarettes, uncomplicated; Z79.899 Other long term (current) drug therapy; Z88.0 Allergy status to penicillin; Z88.8 Allergy status to other drugs, medicaments and biological substances; Z91.040 Latex allergy status; Z87.820 Personal history of traumatic brain injury | CPT/HCPCS: G0463 ==

== ENCOUNTER 2018-01-28 14:26 | Emergency (ER) | payer OTHER ==
[2018-01-28 16:17] LABS: BASO # 0.1 10^3/uL (0.0-0.2); BASO % 0.7 % (0.0-1.0); EOS # 0.3 10^3/uL (0.0-0.50); EOS % 2.8 % (0.0-3.0); HEMATOCRIT 36.2 % (36.0-47.0); HEMOGLOBIN 11.1 g/dl (12.0-15.5); IMMATURE GRANULOCYTE % 0.2 % (0-3.0); LYMPH # 2.1 10^3/uL (1.5-4.5); LYMPH % 17.4 % (24.0-44.0); MEAN CORPUSCULAR HEMOGLOBIN 25.9 pg (27.0-33.0); MEAN CORPUSCULAR HGB CONC 30.7 g/dl (32.0-36.5); MEAN CORPUSCULAR VOLUME 84.6 fl (80.0-96.0); MONO # 0.8 10^3/uL (0.0-0.8); MONO % 6.4 % (0.0-5.0); NEUTROPHILS # 8.8 10^3/uL (1.8-7.7); NEUTROPHILS % 72.5 % (36.0-66.0); PLATELET COUNT, AUTOMATED 332 10^3/uL (150-450); RED BLOOD COUNT 4.28 10^6/uL (4.00-5.40); RED CELL DISTRIBUTION WIDTH 18.6 % (11.5-14.5); WHITE BLOOD COUNT 12.2 10^3/uL (4.0-10.0)
[2018-01-28] MEDS: IPRATROPIUM 0.5MG/ALBUTEROL 2.5MG INH SOL UD 3ML (DUONEB)(J7620) NEB (16:24)
[2018-01-28 16:42] LABS: ALBUMIN/GLOBULIN RATIO 0.83 (1.00-1.93); ALKALINE PHOSPHATASE 116 U/L (45-117); ALT/SGPT 14 U/L (12-78); ANION GAP 5 MEQ/L (8-16); AST/SGOT 9 U/L (7-37); BILIRUBIN,DIRECT < 0.1 MG/DL (0.0-0.2); BILIRUBIN,TOTAL 0.2 MG/DL (0.2-1.0); BLOOD UREA NITROGEN 7 MG/DL (7-18); CALCIUM LEVEL 7.7 MG/DL (8.5-10.1); CARBON DIOXIDE LEVEL 32 MEQ/L (21-32); CHLORIDE LEVEL 105 MEQ/L (98-107); CREATININE FOR GFR 0.86 MG/DL (0.55-1.30); GLOMERULAR FILTRATION RATE > 60.0 (>60); GLUCOSE, FASTING 91 MG/DL (70-100); POTASSIUM SERUM 3.7 MEQ/L (3.5-5.1); SODIUM LEVEL 142 MEQ/L (136-145); TOTAL PROTEIN 6.6 GM/DL (6.4-8.2)
== END 2018-01-28 17:17 | disposition home or self-care (01) ==
LOC: M ED 14:26
DX: J04.0 Acute laryngitis (principal); R60.0 Localized edema; I10 Essential (primary) hypertension; J45.909 Unspecified asthma, uncomplicated; G43.909 Migraine, unspecified, not intractable, without status migrainosus; R56.9 Unspecified convulsions; M79.7 Fibromyalgia; E78.9 Disorder of lipoprotein metabolism, unspecified; L21.9 Seborrheic dermatitis, unspecified; M54.9 Dorsalgia, unspecified; F31.9 Bipolar disorder, unspecified; F43.10 Post-traumatic stress disorder, unspecified; Z79.899 Other long term (current) drug therapy; Z88.0 Allergy status to penicillin; Z88.5 Allergy status to narcotic agent; Z88.8 Allergy status to other drugs, medicaments and biological substances; F17.210 Nicotine dependence, cigarettes, uncomplicated; F11.20 Opioid dependence, uncomplicated
CPT/HCPCS: 71046

== ENCOUNTER → 2018-02-13 | Outpatient (CLI) | payer OTHER ==
[~2018-02-13] MED LIST changes: -ALBU17IN INH; -ATIV1TAB7 PO; -BACL10TA2 PO; +BUPIVACAINE HCL 0.25% 10 ML VIAL As Ordered; +BUPIVACAINE HCL 0.25% 30 ML VIAL As Ordered; -CHERSYP3 PO; -COLA100C5 PO; -CYCL5TAB PO; -DIAZ5TAB PO; -DOCQ100C AD; -FAMO20TA PO; -FLUO20CA19 PO; -GABA-282 PO; -GABA-283 PO; -HYDR-3363 PO; -HYDR-3713; -HYDR-3713 PO; -HYDR12.55 PO; -HYDR25TAB PO; -HYDR50TA70 PO; -IBUP80TA PO; -IMIT50TA PO; -IPRASOL4 IN; -KLON0.5T PO; -KLON1TAB PO; -LEVA750T7 PO; -LISI-538 PO; -LORA10TA2 PO; -MACR100C43 PO; -MELO15TA4 PO; -METH75TA PO; -MUCI600T37 PO; -NICO14PA TD; -NORT25CA2 PO; -PAXI20TA29 PO; -PRAZ1CAP PO; -PRAZ2CAP PO; -PRIL20CA9 PO; -PROZ20CA11 PO; -RANI15TA PO; -REXU1TAB3; -SING5CHW23 PO; -TESS100C PO; -TINAZIDINE; -TIZA6CAP3 PO; -TOPI100T9 PO; +TRIAMCINOLONE ACETONIDE SUSP 40 MG/ML VIAL (J3301) As Ordered; -VIST25CA PO; -WELLTAB38 PO; -ZANT300T PO; -ZIPR20CA13 PO; +diazePAM 5 MG TAB As Ordered; +oxyCODONE 5MG TAB As Ordered
== END ==
LOC: M PAIN 14:45
DX: G89.29 Other chronic pain (principal); M79.1 Myalgia; M54.2 Cervicalgia; M25.511 Pain in right shoulder; M25.512 Pain in left shoulder; I10 Essential (primary) hypertension; F43.10 Post-traumatic stress disorder, unspecified; F41.9 Anxiety disorder, unspecified; R73.09 Other abnormal glucose; F17.210 Nicotine dependence, cigarettes, uncomplicated; F31.9 Bipolar disorder, unspecified; Z79.899 Other long term (current) drug therapy; Z88.0 Allergy status to penicillin; Z88.8 Allergy status to other drugs, medicaments and biological substances; Z91.040 Latex allergy status; Z90.49 Acquired absence of other specified parts of digestive tract; Z98.84 Bariatric surgery status
CPT/HCPCS: J3301

== ENCOUNTER → 2018-02-16 | Outpatient (CLI) | payer OTHER | LOC: M PAIN 10:00 | DX: M79.1 Myalgia (principal); M43.06 Spondylolysis, lumbar region; G43.709 Chronic migraine without aura, not intractable, without status migrainosus; M47.12 Other spondylosis with myelopathy, cervical region; I10 Essential (primary) hypertension; F41.9 Anxiety disorder, unspecified; F43.10 Post-traumatic stress disorder, unspecified; F17.210 Nicotine dependence, cigarettes, uncomplicated; Z79.899 Other long term (current) drug therapy; Z88.0 Allergy status to penicillin; Z88.8 Allergy status to other drugs, medicaments and biological substances; Z91.09 Other allergy status, other than to drugs and biological substances; Z87.820 Personal history of traumatic brain injury | CPT/HCPCS: G0463 ==

== ENCOUNTER → 2018-02-23 | Outpatient (REF) | payer OTHER ==
[2018-02-23 17:16] LABS: ALBUMIN 3.2 GM/DL (3.2-5.2); ALKALINE PHOSPHATASE 118 U/L (45-117); ALT/SGPT 18 U/L (12-78); ANION GAP 6 MEQ/L (8-16); AST/SGOT 13 U/L (7-37); BILIRUBIN,TOTAL 0.2 MG/DL (0.2-1.0); BLOOD UREA NITROGEN 8 MG/DL (7-18); CALCIUM LEVEL 8.4 MG/DL (8.5-10.1); CARBON DIOXIDE LEVEL 33 MEQ/L (21-32); CHLORIDE LEVEL 103 MEQ/L (98-107); CREATININE FOR GFR 0.88 MG/DL (0.55-1.30); GLOMERULAR FILTRATION RATE > 60.0 (>60); GLUCOSE, FASTING 86 MG/DL (70-100); NT-PRO BNP 132 PG/ML (<125); POTASSIUM SERUM 3.3 MEQ/L (3.5-5.1); SODIUM LEVEL 142 MEQ/L (136-145); TOTAL PROTEIN 7.2 GM/DL (6.4-8.2)
== END ==
LOC: M SFHCPLAZ 15:08
DX: R60.0 Localized edema (principal); R73.03 Prediabetes

== ENCOUNTER 2018-05-15 15:40 | Emergency (ER) | payer OTHER ==
[2018-05-15] MEDS: KETOROLAC TROMETHAMINE 10 MG TAB PO ×2 (18:03→19:00)
[2018-05-15] MEDS: METOCLOPRAMIDE 10 MG TAB PO ×2 (18:03→19:00)
== END 2018-05-15 19:07 | disposition home or self-care (01) ==
LOC: M ED 15:40
DX: F11.23 Opioid dependence with withdrawal (principal); I10 Essential (primary) hypertension; E78.5 Hyperlipidemia, unspecified; J45.909 Unspecified asthma, uncomplicated; R25.1 Tremor, unspecified; G43.909 Migraine, unspecified, not intractable, without status migrainosus; M79.7 Fibromyalgia; K21.9 Gastro-esophageal reflux disease without esophagitis; K58.9 Irritable bowel syndrome, unspecified; M54.9 Dorsalgia, unspecified; F32.9 Major depressive disorder, single episode, unspecified; F90.9 Attention-deficit hyperactivity disorder, unspecified type; F43.10 Post-traumatic stress disorder, unspecified; F41.9 Anxiety disorder, unspecified; F50.9 Eating disorder, unspecified; Z88.0 Allergy status to penicillin; Z88.8 Allergy status to other drugs, medicaments and biological substances; Z91.040 Latex allergy status; Z79.899 Other long term (current) drug therapy
CPT/HCPCS: 99283

== ENCOUNTER 2018-05-20 08:23 | Emergency (ER) | payer OTHER ==
[2018-05-20] MEDS: NS 1,000 ML IV (09:31)
[2018-05-20] MEDS: LORazepam 2 MG/ML VIAL (J2060) IV (09:31)
[2018-05-20 09:42] LABS: BASO # 0.1 10^3/uL (0.0-0.2); BASO % 0.7 % (0.0-1.0); EOS # 0.3 10^3/uL (0.0-0.50); EOS % 2.8 % (0.0-3.0); HEMATOCRIT 42.2 % (36.0-47.0); IMMATURE GRANULOCYTE % 0.2 % (0-3.0); LYMPH # 1.8 10^3/uL (1.5-4.5); LYMPH % 18.3 % (24.0-44.0); MEAN CORPUSCULAR HEMOGLOBIN 25.6 pg (27.0-33.0); MEAN CORPUSCULAR HGB CONC 30.8 g/dl (32.0-36.5); MEAN CORPUSCULAR VOLUME 83.1 fl (80.0-96.0); MONO # 0.6 10^3/uL (0.0-0.8); MONO % 5.6 % (0.0-5.0); NEUTROPHILS # 7.1 10^3/uL (1.8-7.7); NEUTROPHILS % 72.4 % (36.0-66.0); PLATELET COUNT, AUTOMATED 323 10^3/uL (150-450); RED BLOOD COUNT 5.08 10^6/uL (4.00-5.40); RED CELL DISTRIBUTION WIDTH 18.8 % (11.5-14.5); WHITE BLOOD COUNT 9.8 10^3/uL (4.0-10.0)
[2018-05-20 10:11] LABS: AMPHETAMINES LEVEL URINE NEGATIVE (NEGATIVE); BARBITURATES URINE NEGATIVE (NEGATIVE); BENZODIAZEPINES URINE NEGATIVE (NEGATIVE); CANNABINOIDS URINE POSITIVE (NEGATIVE); COCAINE METABOLITE URINE NEGATIVE (NEGATIVE); METHADONE URINE NEGATIVE (NEGATIVE); OPIATES URINE NEGATIVE (NEGATIVE); PHENCYCLIDINE URINE NEGATIVE (NEGATIVE)
[2018-05-20 10:22] LABS: CONTROL LINE HCG INT CTR LINE PRESENT; HCG, SERUM QUALITATIVE NEGATIVE (NEGATIVE)
[2018-05-20 10:35] LABS: ACETAMINOPHEN LEVEL < 2.0 UG/ML (10.0-30.0); ALBUMIN 3.2 GM/DL (3.2-5.2); ALBUMIN/GLOBULIN RATIO 0.94 (1.00-1.93); ALKALINE PHOSPHATASE 90 U/L (45-117); ALT/SGPT 16 U/L (12-78); ANION GAP 3 MEQ/L (8-16); AST/SGOT 12 U/L (7-37); BILIRUBIN,DIRECT 0.1 MG/DL (0.0-0.2); BILIRUBIN,TOTAL 0.3 MG/DL (0.2-1.0); BLOOD UREA NITROGEN 5 MG/DL (7-18); CALCIUM LEVEL 8.7 MG/DL (8.5-10.1); CARBON DIOXIDE LEVEL 35 MEQ/L (21-32); CHLORIDE LEVEL 104 MEQ/L (98-107); CPK CREATINE PHOSPHOKINASE 79 U/L (26-192); CREATININE FOR GFR 0.83 MG/DL (0.55-1.30); ETHYL ALCOHOL (ETHANOL) < 0.003 % (0.000-0.010); GLOMERULAR FILTRATION RATE > 60.0 (>60); GLUCOSE, FASTING 93 MG/DL (70-100); POTASSIUM SERUM 3.7 MEQ/L (3.5-5.1); SALICYLATE LEVEL 2.8 MG/DL (5.0-30.0); SODIUM LEVEL 142 MEQ/L (136-145); THYROID STIMULATING HORMONE 0.702 uIU/ML (0.358-3.740); TOTAL PROTEIN 6.6 GM/DL (6.4-8.2)
== END 2018-05-20 11:34 | disposition home or self-care (01) ==
LOC: M ED 08:23
DX: F11.23 Opioid dependence with withdrawal (principal); F99 Mental disorder, not otherwise specified; F17.210 Nicotine dependence, cigarettes, uncomplicated; Z88.8 Allergy status to other drugs, medicaments and biological substances; Z88.0 Allergy status to penicillin; Z91.040 Latex allergy status
CPT/HCPCS: J2060

== ENCOUNTER → 2018-05-29 | Outpatient (CLI) | payer OTHER ==
[2018-05-29 12:49] LABS: HEMATOCRIT 40.5 % (36.0-47.0); HEMOGLOBIN 12.3 g/dl (12.0-15.5); MEAN CORPUSCULAR HEMOGLOBIN 25.7 pg (27.0-33.0); MEAN CORPUSCULAR HGB CONC 30.4 g/dl (32.0-36.5); MEAN CORPUSCULAR VOLUME 84.7 fl (80.0-96.0); PLATELET COUNT, AUTOMATED 313 10^3/uL (150-450); RED BLOOD COUNT 4.78 10^6/uL (4.00-5.40); RED CELL DISTRIBUTION WIDTH 19.2 % (11.5-14.5); WHITE BLOOD COUNT 9.5 10^3/uL (4.0-10.0)
[2018-05-29 13:14] LABS: CONTROL LINE HCG INT CTR LINE PRESENT; HCG, SERUM QUALITATIVE NEGATIVE (NEGATIVE)
[2018-05-29 13:20] LABS: ALBUMIN 3.1 GM/DL (3.2-5.2); ALBUMIN/GLOBULIN RATIO 0.97 (1.00-1.93); ALKALINE PHOSPHATASE 84 U/L (45-117); ALT/SGPT 22 U/L (12-78); ANION GAP 2 MEQ/L (8-16); AST/SGOT 15 U/L (7-37); BILIRUBIN,TOTAL 0.3 MG/DL (0.2-1.0); BLOOD UREA NITROGEN 7 MG/DL (7-18); CALCIUM LEVEL 8.4 MG/DL (8.5-10.1); CARBON DIOXIDE LEVEL 38 MEQ/L (21-32); CHLORIDE LEVEL 100 MEQ/L (98-107); CREATININE FOR GFR 0.88 MG/DL (0.55-1.30); GLOMERULAR FILTRATION RATE > 60.0 (>60); GLUCOSE, FASTING 105 MG/DL (70-100); SODIUM LEVEL 140 MEQ/L (136-145); TOTAL PROTEIN 6.3 GM/DL (6.4-8.2)
[2018-05-29 14:32] LABS: CHLAMYDIA DNA AMPLIFICATION NEGATIVE (NEGATIVE); GC DNA AMPLIFICATION NEGATIVE (NEGATIVE)
[2018-05-30 10:13] LABS: HEPATITIS B SURFACE ANTIGEN NEGATIVE (NEGATIVE)
[2018-05-30 10:41] LABS: HEPATITIS C VIRUS ABY INDEX 0.1 INDEX (<0.8); HIV 1&2 SCREEN CENTAUR NEGATIVE (NEGATIVE)
== END ==
LOC: M LAB 12:14
DX: F11.20 Opioid dependence, uncomplicated (principal)
CPT/HCPCS: 93005

== ENCOUNTER → 2018-06-12 | Outpatient (CLI) | payer OTHER ==
[~2018-06-12] MED LIST changes: +ADDE1TAB14 PO; +ALBU17IN INH; +ATIV1TAB7 PO; +ATIV2TAB PO; +ATOR1TAB19 PO; +BACL10TA2 PO; -BUPIVACAINE HCL 0.25% 10 ML VIAL As Ordered; -BUPIVACAINE HCL 0.25% 30 ML VIAL As Ordered; +CBD/THC PO; +CETI10TA PO; +CHERSYP3 PO; +COLA100C5 PO; +CYCL5TAB PO; +D 1010004 PO; +DIAZ5TAB PO; +DOCQ100C5 AD; +FAMO20TA PO; +FLON1SPR; +FLON1SPR NARES; +FLUO20CA19 PO; +FLUO20CA8 PO; +GABA-1171; +GABA-1171 PO; +GABA-843 PO; +GABA-845 PO; +HYDR-3363 PO; +HYDR-3713; +HYDR-3713 PO; +HYDR12.55; +HYDR12.55 PO; +HYDR25TAB PO; +HYDR50TA70 PO; +HYDRO50TAB PO; +IBUP80TA PO; +IMIT50TA PO; +IPRA0.00 IN; +KETO10TAB PO; +KLON0.5T PO; +KLON1TAB PO; +LEVA750T7 PO; +LISI-538 PO; +LORA-243 PO; +LORA0.5T11 PO; +MACR100C43 PO; +MELO15TA28 PO; +METH75TA PO; +MIRT15TA3 PO; +MUCI600T37 PO; +NICO14PA TD; +NICO21PAT TD; +NORT25CA2 PO; +OXYC1TAB23 PO; +OXYCO5TA PO; +PAXI20TA29 PO; +POTA20TA6; +PRAZ1CAP PO; +PRAZ2CAP PO; +PRIL20CA9 PO; +PROZ20CA11 PO; +RANI15TA PO; +REGL10TA6 PO; +REXU1TAB3; +SING5CHW23 PO; +SUBO8MIS; +TESS100C PO; +TINAZIDINE; +TIZA2CAP PO; +TIZA6CAP PO; +TOPA100T12 PO; +TOPA1TAB PO; +TOPI100T9 PO; +TOPI25TA10 PO; -TRIAMCINOLONE ACETONIDE SUSP 40 MG/ML VIAL (J3301) As Ordered; +VENTAER INH; +VIST25CA PO; +WELLTAB38 PO; +ZANT300T PO; +ZIPR20CA13 PO; -diazePAM 5 MG TAB As Ordered; +marijuana; -oxyCODONE 5MG TAB As Ordered
--- NOTE | 2018-06-12 15:32 | REP ---
Clinical: Trauma. Technique: AP, lateral, bilateral oblique views of the left second toe. Findings: No acute fracture or dislocation. No subcutaneous emphysema or radiodense foreign body. Impression: No acute fracture or dislocation. Electronically Signed by Gurdeep Ramos MD 06/12/2018 03:23 P
== END ==
LOC: M RAD 14:30
PROVIDERS: ATTEND Physician Assistant Medical
DX: M25.572 Pain in left ankle and joints of left foot (principal)

== ENCOUNTER → 2018-07-23 | Outpatient (REF) | payer OTHER ==
[~2018-07-23] MED LIST changes: -ZANT300T PO; +ZANT300T9 PO
== END ==
LOC: M SFHCPLAZ 11:58
PROVIDERS: ATTEND Student in an Organized Health Care Education/Training Program
DX: L08.9 Local infection of the skin and subcutaneous tissue, unspecified (principal)

== ENCOUNTER → 2018-07-31 | Outpatient (CLI) | payer OTHER ==
--- NOTE | 2018-07-31 16:54 | ECHO ---
DATE OF PROCEDURE: 07/31/2018 Date of : 1980 Age: 38 Gender: Female Height: 63 inches Weight: 235 pounds Body surface area: 2.0 centimeters squared REFERRING PHYSICIAN: Dr. Santos Estrada INDICATION: Edema. MEASUREMENTS: 2D measurements: RV: 4.0 cm LV: 4.8 cm Septum: 1.0 cm Posterior wall: 1.0 cm Aortic root: 3.1 cm LA: 4.1 cm LVEF: 65%. Doppler Measurements: AV: 1.7 meters per second LVOT: 1.0 meters per second LVOT diameter: 2.0 cm MV-E: 117, A: 110, EA ratio: 1.1 Early mitral deceleration time: 230 milliseconds E prime: 8.6, A prime: 7, E/E prime ratio: 13.6 Pulmonary capillary wedge pressure: 18 mmHg PV: 0.75 meters per second Pulmonary artery acceleration time: 99 milliseconds RVSP: 50-55 mmHg IVC: 2.4 cm COMMENTS: Normal sinus rhythm without intraventricular conduction disturbance. Technically challenging study in light of the patient's body habitus but diagnostically useful information was still obtained. M-mode and two-dimensional echocardiography was performed with pulsed, continuous wave, color flow and tissue Doppler studies. Normal left ventricular size, wall thickness and wall motion. Mildly dilated left atrium with impairment of LV diastolic function and at least mildly elevated mean left atrial pressure. Borderline dilated right heart chambers with normal wall motion but Doppler evidence of at least moderate pulmonary hypertension. Mildly dilated inferior vena cava with reduced respiratory collapse in keeping with an elevated central venous pressure/right heart failure. Normal appearing aortic valve and mitral valve with no more than trace mitral insufficiency. Normal appearing tricuspid valve with mild-moderate tricuspid insufficiency. No apparent intracardiac mass or pericardial effusion. Normal aortic root size.
== END ==
LOC: M CARPUL 10:33
PROVIDERS: ATTEND Student in an Organized Health Care Education/Training Program
DX: R60.0 Localized edema (principal); I36.1 Nonrheumatic tricuspid (valve) insufficiency

== ENCOUNTER 2018-10-26 10:32 | Inpatient (IN) | payer MEDICAID, OTHER ==
[~2018-10-26] VITALS: Ht 162.6 cm; Wt 103.1 kg
[~2018-10-26 10:32] MED LIST changes: +HYDR-2541 PO; -HYDR25TAB PO; +hydroCHLOROthiazide 12.5 MG CAPSULE PO SCH
[2018-10-26 11:22] LABS: HEMATOCRIT 46.8 % (36.0-47.0); MEAN CORPUSCULAR HGB CONC 29.9 g/dl (32.0-36.5); PLATELET COUNT, AUTOMATED 310 10^3/uL (150-450); RED BLOOD COUNT 5.38 10^6/uL (4.00-5.40); WHITE BLOOD COUNT 10.9 10^3/uL (4.0-10.0)
[2018-10-26] MEDS ORDERED: HYDR-3363 PO (11:33)
[2018-10-26] MEDS ORDERED: TOPI100T9 (11:33)
[2018-10-26] MEDS ORDERED: VITA2000 (11:33)
[2018-10-26] MEDS ORDERED: FLUO20CA19 PO (11:33)
[2018-10-26] MEDS ORDERED: RANI150T14 PO (11:33)
[2018-10-26] MEDS ORDERED: ALBU8.5H (11:33)
[2018-10-26] MEDS ORDERED: POTA20TA6 (11:33)
[2018-10-26] MEDS ORDERED: NICO21DI37 (11:33)
[2018-10-26] MEDS ORDERED: VENTAER INH (11:33)
[2018-10-26] MEDS ORDERED: HYDR12.55 PO (11:33)
[2018-10-26] MEDS ORDERED: BUSP10TA PO (11:33)
[2018-10-26] MEDS ORDERED: IBUP80TA PO (11:33)
[2018-10-26] MEDS ORDERED: AMPHET/DEXTR (11:33)
[2018-10-26 11:47] LABS: HCG, SERUM QUALITATIVE NEGATIVE (NEGATIVE)
[2018-10-26] MEDS ORDERED: LORazepam 2 MG TAB PO STA (11:48)
[2018-10-26 11:53] LABS: AMPHETAMINES LEVEL URINE NEGATIVE (NEGATIVE); BARBITURATES URINE NEGATIVE (NEGATIVE); BENZODIAZEPINES URINE NEGATIVE (NEGATIVE); CANNABINOIDS URINE POSITIVE (NEGATIVE); COCAINE METABOLITE URINE NEGATIVE (NEGATIVE); METHADONE URINE POSITIVE (NEGATIVE); OPIATES URINE NEGATIVE (NEGATIVE); PHENCYCLIDINE URINE NEGATIVE (NEGATIVE)
[2018-10-26 11:58] LABS: ACETAMINOPHEN LEVEL < 2.0 UG/ML (10.0-30.0); ALBUMIN 3.6 GM/DL (3.2-5.2); ALT/SGPT 21 U/L (12-78); BILIRUBIN,DIRECT 0.1 MG/DL (0.0-0.2); BILIRUBIN,TOTAL 0.4 MG/DL (0.2-1.0); BLOOD UREA NITROGEN 7 MG/DL (7-18); CALCIUM LEVEL 8.5 MG/DL (8.5-10.1); CARBON DIOXIDE LEVEL 35 MEQ/L (21-32); CHLORIDE LEVEL 98 MEQ/L (98-107); CREATININE FOR GFR 0.88 MG/DL (0.55-1.30); ETHYL ALCOHOL (ETHANOL) < 0.003 % (0.000-0.010); GLOMERULAR FILTRATION RATE > 60.0 (>58); GLUCOSE, FASTING 107 MG/DL (70-100); POTASSIUM SERUM 4.1 MEQ/L (3.5-5.1); SALICYLATE LEVEL 3.7 MG/DL (5.0-30.0); SODIUM LEVEL 139 MEQ/L (136-145); THYROID STIMULATING HORMONE 0.699 uIU/ML (0.358-3.740); TOTAL PROTEIN 7.7 GM/DL (6.4-8.2)
[2018-10-26] MEDS ORDERED: diphenhydrAMINE 50 MG CAP PO ONE (12:00)
--- NOTE | 2018-10-26 12:01 | REP ---
Head CT without contrast: History: Altered mental status. Comparison study: Comparison maxillofacial CT images November 24, 2016. CT findings: Bone window settings demonstrate an intact bony calvarium. There is no evidence of skull fracture or incidental bony calvarial lesion. The visualized paranasal sinuses appear clear. No intraorbital abnormality is seen. On soft tissue window setting images; the lateral, third, and fourth ventricles are normal in size and position. Diaz-white differentiation pattern is normal above and below the tentorium. There are is no evidence of intracranial hemorrhage. No mass, edema, infarction, or midline shift is seen. No extra-axial fluid collection is appreciated. Impression: Negative noncontrast head CT. Electronically Signed by Ken Cook MD 10/26/2018 12:00 P
[2018-10-26] MEDS ORDERED: ADDE20TA PO (13:49)
[2018-10-26] MEDS ORDERED: ACETAMINOPHEN TAB 650MG DOSE (2X325MG) PO PRN (15:00)
[2018-10-26] MEDS ORDERED: MOM 30ML SUSPENSION UDC PO PRN (15:00)
[2018-10-26] MEDS ORDERED: MAALOX 30 ML SUSP *UDC PO PRN (15:00)
[2018-10-26] MEDS ORDERED: traZODone 50 MG TAB PO PRN (15:00)
[2018-10-26 15:59] VITALS: BP 121/78
[2018-10-26] MEDS ORDERED: ALBUTEROL 90 MCG/ACT 8GM HFA INHALER INH PRN (17:15)
[2018-10-26] MEDS: FLUoxetine 20 MG CAP PO SCH (18:20)
[2018-10-26] MEDS: OLANZapine ORAL DISINTEGRATING TAB 5MG PO PRN ×2 (18:21→23:46)
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
[2018-10-26] MEDS: busPIRone 10 MG TAB PO SCH (21:24)
[2018-10-26] MEDS: hydrOXYzine 25 MG TAB PO PRN (21:24)
[2018-10-26] MEDS: FAMOTIDINE 20 MG TAB PO SCH (21:24)
[2018-10-26] MEDS: MUPIROCIN 2% OINT 22 GM TUBE TOP SCH (21:25)
[2018-10-27] MEDS: IBUPROFEN 800 MG TAB PO PRN ×2 (04:49→19:06)
[2018-10-27 06:59] VITALS: BP 112/55
[2018-10-27] MEDS: busPIRone 10 MG TAB PO SCH ×3 (08:52→21:49)
[2018-10-27] MEDS: METHADONE 10 MG TAB (S0109) PO SCH (08:52)
[2018-10-27] MEDS: FAMOTIDINE 20 MG TAB PO SCH ×2 (08:52→21:51)
[2018-10-27] MEDS: hydroCHLOROthiazide 12.5 MG CAPSULE PO SCH (08:53)
[2018-10-27] MEDS: FLUoxetine 20 MG CAP PO SCH (08:53)
[2018-10-27] MEDS ORDERED: INFLUENZA QUADRIVALENT PF VACCINE 0.5ML SYRINGE (90686) IM ONE (09:00)
[2018-10-27] MEDS: MUPIROCIN 2% OINT 22 GM TUBE TOP SCH ×2 (09:56→22:53)
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
[2018-10-27] MEDS ORDERED: risperiDONE 1 MG TAB PO ONE (12:15)
[2018-10-27] MEDS: hydrOXYzine 25 MG TAB PO PRN ×2 (12:41→19:06)
[2018-10-27] MEDS ORDERED: NICOTINE 21MG/24HR 1 EA TRANSDERMAL TD ONE (13:30)
[2018-10-27] MEDS: OLANZapine ORAL DISINTEGRATING TAB 5MG PO PRN ×2 (15:00→23:34)
[2018-10-27 18:36] VITALS: BP 140/68
[2018-10-27] MEDS: risperiDONE 1 MG TAB PO SCH (21:50)
[2018-10-28] MEDS: hydrOXYzine 25 MG TAB PO PRN (02:50)
[2018-10-28] MEDS: IBUPROFEN 800 MG TAB PO PRN (05:44)
[2018-10-28 06:45] VITALS: BP 135/64
[2018-10-28] MEDS: FLUoxetine 20 MG CAP PO SCH (08:44)
[2018-10-28] MEDS: FAMOTIDINE 20 MG TAB PO SCH ×2 (08:44→20:02)
[2018-10-28] MEDS: NICOTINE 21MG/24HR 1 EA TRANSDERMAL TD SCH (08:44)
[2018-10-28] MEDS: risperiDONE 1 MG TAB PO SCH ×2 (08:44→20:02)
[2018-10-28] MEDS: busPIRone 10 MG TAB PO SCH ×3 (08:45→20:02)
[2018-10-28] MEDS: hydroCHLOROthiazide 12.5 MG CAPSULE PO SCH (08:45)
[2018-10-28] MEDS: MUPIROCIN 2% OINT 22 GM TUBE TOP SCH ×2 (08:46→20:02)
[2018-10-28] MEDS: METHADONE 10 MG TAB (S0109) PO SCH (08:46)
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
[2018-10-28] MEDS: OLANZapine ORAL DISINTEGRATING TAB 5MG PO PRN ×2 (10:39→18:12)
[2018-10-28] MEDS: hydrOXYzine 50 MG TAB PO PRN (12:57)
[2018-10-28 18:27] VITALS: BP 138/82
[2018-10-29] MEDS: OLANZapine ORAL DISINTEGRATING TAB 5MG PO PRN ×3 (00:12→18:45)
[2018-10-29 07:09] VITALS: BP 131/80
[2018-10-29] MEDS: FAMOTIDINE 20 MG TAB PO SCH ×2 (08:31→20:17)
[2018-10-29] MEDS: risperiDONE 1 MG TAB PO SCH (08:31)
[2018-10-29] MEDS: FLUoxetine 20 MG CAP PO SCH (08:32)
[2018-10-29] MEDS: hydroCHLOROthiazide 12.5 MG CAPSULE PO SCH (08:32)
[2018-10-29] MEDS: busPIRone 10 MG TAB PO SCH ×3 (08:32→20:17)
[2018-10-29] MEDS: METHADONE 10 MG TAB (S0109) PO SCH (08:32)
[2018-10-29] MEDS: MUPIROCIN 2% OINT 22 GM TUBE TOP SCH ×2 (08:33→20:17)
[2018-10-29] MEDS: NICOTINE 21MG/24HR 1 EA TRANSDERMAL TD SCH (08:33)
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
[2018-10-29] MEDS ORDERED: risperiDONE 1 MG TAB PO ONE (11:00)
[2018-10-29] MEDS: hydrOXYzine 50 MG TAB PO PRN ×2 (12:19→23:34)
[2018-10-29 18:00] VITALS: BP 132/78
[2018-10-29] MEDS ORDERED: risperiDONE 2 MG TAB PO SCH (21:00)
[2018-10-30] MEDS: OLANZapine ORAL DISINTEGRATING TAB 5MG PO PRN (02:48)
[2018-10-30 06:49] VITALS: BP 140/84
[2018-10-30] MEDS: hydroCHLOROthiazide 12.5 MG CAPSULE PO SCH (08:11)
[2018-10-30] MEDS: FAMOTIDINE 20 MG TAB PO SCH (08:11)
[2018-10-30] MEDS: busPIRone 10 MG TAB PO SCH (08:12)
[2018-10-30] MEDS: FLUoxetine 20 MG CAP PO SCH (08:12)
[2018-10-30] MEDS: NICOTINE 21MG/24HR 1 EA TRANSDERMAL TD SCH (08:13)
[2018-10-30] MEDS: MUPIROCIN 2% OINT 22 GM TUBE TOP SCH (08:15)
[2018-10-30] MEDS: METHADONE 10 MG TAB (S0109) PO SCH (08:15)
[2018-10-30] MEDS ORDERED: RISP2TAB32 PO (08:48)
[2018-10-30] MEDS ORDERED: FLUO20CA19 PO (08:48)
[2018-10-30] MEDS ORDERED: HYDR-3363 PO (08:48)
[2018-10-30] MEDS ORDERED: BUSP10TA PO (08:48)
[2018-10-30] MEDS: hydrOXYzine 50 MG TAB PO PRN (08:48)
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
== END 2018-10-30 10:10 | disposition home or self-care (01) | DRG 751 ==
LOC: M ED 10:32 → M ED INP 14:51 → M PSY 15:49
PROVIDERS: ADMIT Psychiatry & Neurology Psychiatry; ATTEND Psychiatry & Neurology Psychiatry
DX: F29 Unspecified psychosis not due to a substance or known physiological condition (principal); F43.10 Post-traumatic stress disorder, unspecified; F11.21 Opioid dependence, in remission; L28.0 Lichen simplex chronicus; I10 Essential (primary) hypertension; K21.9 Gastro-esophageal reflux disease without esophagitis; F41.9 Anxiety disorder, unspecified; R73.03 Prediabetes; F17.200 Nicotine dependence, unspecified, uncomplicated; M47.812 Spondylosis without myelopathy or radiculopathy, cervical region; Z88.0 Allergy status to penicillin; Z81.8 Family history of other mental and behavioral disorders; Z88.8 Allergy status to other drugs, medicaments and biological substances; Z91.040 Latex allergy status; Z79.899 Other long term (current) drug therapy; Z62.813 Personal history of forced labor or sexual exploitation in childhood

== ENCOUNTER 2018-10-31 18:11 | Emergency (ER) | payer MEDICAID, OTHER ==
[~2018-10-31] VITALS: Ht 162.6 cm; Wt 106.7 kg
[~2018-10-31 18:11] MED LIST changes: +ADDE20TA PO; +ALBU8.5H; +AMPHET/DEXTR; +BUSP10TA PO; +NICO21DI37; +RANI150T14 PO; +RISP2TAB32 PO; +TOPI100T9; +VITA2000; -hydroCHLOROthiazide 12.5 MG CAPSULE PO SCH
[2018-10-31 19:38] LABS: BASO # 0.1 10^3/uL (0.0-0.2); BASO % 0.7 % (0.0-1.0); EOS # 0.2 10^3/uL (0.0-0.50); EOS % 1.7 % (0.0-3.0); HEMATOCRIT 42.4 % (36.0-47.0); HEMOGLOBIN 12.9 g/dl (12.0-15.5); LYMPH # 1.5 10^3/uL (1.5-4.5); LYMPH % 17.1 % (24.0-44.0); MEAN CORPUSCULAR HEMOGLOBIN 26.3 pg (27.0-33.0); MEAN CORPUSCULAR HGB CONC 30.4 g/dl (32.0-36.5); MEAN CORPUSCULAR VOLUME 86.4 fl (80.0-96.0); MONO # 0.6 10^3/uL (0.0-0.8); MONO % 7.1 % (0.0-5.0); NEUTROPHILS # 6.5 10^3/uL (1.8-7.7); NEUTROPHILS % 73.1 % (36.0-66.0); PLATELET COUNT, AUTOMATED 219 10^3/uL (150-450); RED BLOOD COUNT 4.91 10^6/uL (4.00-5.40); WHITE BLOOD COUNT 8.9 10^3/uL (4.0-10.0)
[2018-10-31 20:00] LABS: BLOOD UREA NITROGEN 11 MG/DL (7-18); CALCIUM LEVEL 8.1 MG/DL (8.5-10.1); CARBON DIOXIDE LEVEL 35 MEQ/L (21-32); CHLORIDE LEVEL 101 MEQ/L (98-107); CREATININE FOR GFR 0.81 MG/DL (0.55-1.30); GLOMERULAR FILTRATION RATE > 60.0 (>58); GLUCOSE, FASTING 92 MG/DL (70-100); POTASSIUM SERUM 3.8 MEQ/L (3.5-5.1); SODIUM LEVEL 139 MEQ/L (136-145)
--- NOTE | 2018-10-31 20:19 | REP ---
Comparison is 01/28/2018. There is chronic elevation of the right hemidiaphragm, likely eventration. The lung dave are clear. The cardiac size is normal. The nicolas, mediastinum, and skeletal structures are unremarkable. Impression: Negative PA and lateral chest. There is no interval change. Electronically Signed by Satish Coyne MD 10/31/2018 08:10 P
[2018-10-31 20:23] VITALS: BP 126/60
--- NOTE | 2018-11-01 21:41 | ECGEPIP ---
Stationary ECG Study [facility] - ED Test Date: 2018-10-31 Pat Name: HEMA DE LA CRUZ Department: Room: - Gender: F Glass Technician/Installer: TC : 1980 Requested By: Haily Combs Order Number: [id number] Reading MD: Arianna Perez Measurements Intervals [place] Rate: 85 P: 73 [place]: 128 QRS: 83 QRSD: 84 T: 54 QT: 346 QTc: 413 Interpretive Statements SINUS RHYTHM NSTTW ABNORMALITY INCREASED RATE 07/18/18 Electronically Signed On 11-01-2018 21:41:29 EDT by Arianna Perez
== END 2018-10-31 20:26 | disposition home or self-care (01) ==
LOC: M ED 18:11
DX: R11.0 Nausea (principal); G43.909 Migraine, unspecified, not intractable, without status migrainosus; K21.9 Gastro-esophageal reflux disease without esophagitis; I10 Essential (primary) hypertension; F90.9 Attention-deficit hyperactivity disorder, unspecified type; F43.10 Post-traumatic stress disorder, unspecified; Z72.0 Tobacco use; Z79.899 Other long term (current) drug therapy; Z88.0 Allergy status to penicillin; Z88.8 Allergy status to other drugs, medicaments and biological substances; Z91.040 Latex allergy status

== ENCOUNTER 2018-11-19 08:45 | Emergency (ER) | payer OTHER ==
[~2018-11-19] VITALS: Ht 162.6 cm; Wt 118.1 kg
[2018-11-19] MEDS ORDERED: METH10CO PO (08:58)
[2018-11-19] MEDS ORDERED: OLAN10TA12 (08:58)
[2018-11-19] MEDS ORDERED: MEDICAL MARIJUANA (08:58)
[2018-11-19] MEDS ORDERED: AMPHET/DEXTR (08:58)
[2018-11-19] MEDS ORDERED: NS 1,000 ML IV ONE (09:15)
[2018-11-19 09:40] LABS: URINE PREG TEST NEGATIVE (NEGATIVE)
[2018-11-19 09:58] LABS: BASO # 0.1 10^3/uL (0.0-0.2); BASO % 0.7 % (0.0-1.0); EOS # 0.3 10^3/uL (0.0-0.50); HEMATOCRIT 38.9 % (36.0-47.0); HEMOGLOBIN 11.6 g/dl (12.0-15.5); LYMPH # 1.5 10^3/uL (1.5-4.5); LYMPH % 17.5 % (24.0-44.0); MEAN CORPUSCULAR HEMOGLOBIN 26.4 pg (27.0-33.0); MEAN CORPUSCULAR HGB CONC 29.8 g/dl (32.0-36.5); MEAN CORPUSCULAR VOLUME 88.4 fl (80.0-96.0); MONO # 0.8 10^3/uL (0.0-0.8); MONO % 8.7 % (0.0-5.0); NEUTROPHILS % 69.8 % (36.0-66.0); PLATELET COUNT, AUTOMATED 305 10^3/uL (150-450); WHITE BLOOD COUNT 8.6 10^3/uL (4.0-10.0)
[2018-11-19] MEDS ORDERED: ONDANSETRON 4MG/2ML VIAL (J2405) IV ONE (10:00)
[2018-11-19 10:31] LABS: ALBUMIN 2.9 GM/DL (3.2-5.2); ALT/SGPT 19 U/L (12-78); BILIRUBIN,DIRECT < 0.1 MG/DL (0.0-0.2); BILIRUBIN,TOTAL 0.2 MG/DL (0.2-1.0); BLOOD UREA NITROGEN 6 MG/DL (7-18); CARBON DIOXIDE LEVEL 38 MEQ/L (21-32); CHLORIDE LEVEL 101 MEQ/L (98-107); CREATININE FOR GFR 0.76 MG/DL (0.55-1.30); GLOMERULAR FILTRATION RATE > 60.0 (>58); GLUCOSE, FASTING 88 MG/DL (70-100); LIPASE 124 U/L (73-393); POTASSIUM SERUM 3.8 MEQ/L (3.5-5.1); SODIUM LEVEL 140 MEQ/L (136-145); TOTAL PROTEIN 6.7 GM/DL (6.4-8.2)
[2018-11-19] MEDS ORDERED: ZOFR4TAB16 PO (12:10)
[2018-11-19 12:41] VITALS: BP 141/66
[2018-11-20] MEDS ORDERED: FLUO20CA8 PO (03:51)
[2018-11-20] MEDS ORDERED: ONDA4TAB5 PO (03:51)
[2018-11-20] MEDS ORDERED: ADDE20TA PO (03:51)
[2018-11-20] MEDS ORDERED: OLAN10TA12 PO (03:51)
[2018-11-20] MEDS ORDERED: IBUP1TAB7 PO (03:51)
[2018-11-20] MEDS ORDERED: HYDRO50TAB PO (03:51)
[2018-11-20] MEDS ORDERED: METH10CO PO (03:53)
== END 2018-11-19 12:45 | disposition home or self-care (01) ==
LOC: M ED 08:45
DX: R11.2 Nausea with vomiting, unspecified (principal); R19.7 Diarrhea, unspecified; I10 Essential (primary) hypertension; K21.9 Gastro-esophageal reflux disease without esophagitis; F90.9 Attention-deficit hyperactivity disorder, unspecified type; F43.10 Post-traumatic stress disorder, unspecified; R73.03 Prediabetes; M47.812 Spondylosis without myelopathy or radiculopathy, cervical region; M47.816 Spondylosis without myelopathy or radiculopathy, lumbar region; R60.0 Localized edema; F19.10 Other psychoactive substance abuse, uncomplicated; Z88.0 Allergy status to penicillin; Z88.8 Allergy status to other drugs, medicaments and biological substances; Z79.899 Other long term (current) drug therapy
CPT/HCPCS: 80048; 80076; 81001; 83690; 84703; 85025; 96374; 99284; J2405

== ENCOUNTER 2018-11-19 21:32 | Inpatient (IN) | payer MEDICAID, OTHER ==
[~2018-11-19] VITALS: Ht 162.6 cm; Wt 115.3 kg
[~2018-11-19 21:32] MED LIST changes: +MEDICAL MARIJUANA; +METH10CO PO; +OLAN10TA12; +ZOFR4TAB16 PO
[2018-11-19 22:19] LABS: HEMATOCRIT 38.1 % (36.0-47.0); MEAN CORPUSCULAR HEMOGLOBIN 25.6 pg (27.0-33.0); MEAN CORPUSCULAR HGB CONC 28.9 g/dl (32.0-36.5); MEAN CORPUSCULAR VOLUME 88.8 fl (80.0-96.0); PLATELET COUNT, AUTOMATED 281 10^3/uL (150-450); RED BLOOD COUNT 4.29 10^6/uL (4.00-5.40); WHITE BLOOD COUNT 9.2 10^3/uL (4.0-10.0)
[2018-11-19 22:54] LABS: AMPHETAMINES LEVEL URINE POSITIVE (NEGATIVE); BARBITURATES URINE NEGATIVE (NEGATIVE); BENZODIAZEPINES URINE NEGATIVE (NEGATIVE); CANNABINOIDS URINE POSITIVE (NEGATIVE); COCAINE METABOLITE URINE NEGATIVE (NEGATIVE); METHADONE URINE POSITIVE (NEGATIVE); OPIATES URINE NEGATIVE (NEGATIVE); PHENCYCLIDINE URINE NEGATIVE (NEGATIVE)
[2018-11-19 22:55] LABS: ACETAMINOPHEN LEVEL 5.5 UG/ML (10.0-30.0); ALBUMIN 2.9 GM/DL (3.2-5.2); ALT/SGPT 21 U/L (12-78); BILIRUBIN,DIRECT < 0.1 MG/DL (0.0-0.2); BILIRUBIN,TOTAL 0.2 MG/DL (0.2-1.0); BLOOD UREA NITROGEN 8 MG/DL (7-18); CALCIUM LEVEL 7.7 MG/DL (8.5-10.1); CARBON DIOXIDE LEVEL 38 MEQ/L (21-32); CHLORIDE LEVEL 100 MEQ/L (98-107); CREATININE FOR GFR 0.81 MG/DL (0.55-1.30); ETHYL ALCOHOL (ETHANOL) < 0.003 % (0.000-0.010); GLOMERULAR FILTRATION RATE > 60.0 (>58); GLUCOSE, FASTING 99 MG/DL (70-100); POTASSIUM SERUM 3.9 MEQ/L (3.5-5.1); SODIUM LEVEL 140 MEQ/L (136-145); TOTAL PROTEIN 6.1 GM/DL (6.4-8.2)
[2018-11-19 22:56] LABS: HCG, SERUM QUALITATIVE NEGATIVE (NEGATIVE)
[2018-11-20] MEDS ORDERED: MAALOX 30 ML SUSP *UDC PO PRN (03:15)
[2018-11-20] MEDS: ACETAMINOPHEN TAB 650MG DOSE (2X325MG) PO PRN ×2 (03:26→17:46)
[2018-11-20] MEDS ORDERED: HYDRO50TAB PO (03:51)
[2018-11-20] MEDS ORDERED: ADDE20TA PO (03:51)
[2018-11-20] MEDS ORDERED: OLAN10TA12 PO (03:51)
[2018-11-20] MEDS ORDERED: ONDA4TAB5 PO (03:51)
[2018-11-20] MEDS ORDERED: IBUP1TAB7 PO (03:51)
[2018-11-20] MEDS ORDERED: FLUO20CA8 PO (03:51)
[2018-11-20] MEDS ORDERED: METH10CO PO (03:53)
[2018-11-20 04:02] VITALS: BP 142/86
[2018-11-20] MEDS: NICOTINE 21MG/24HR 1 EA TRANSDERMAL TD SCH (07:14)
[2018-11-20] MEDS ORDERED: METHADONE 10 MG TAB (S0109) PO SCH (09:00)
[2018-11-20] MEDS: raNITIdine SYRUP 150 MG/10 ML UDC PO SCH ×2 (09:00→23:04)
[2018-11-20] MEDS: busPIRone 10 MG TAB PO SCH ×3 (09:18→23:04)
[2018-11-20] MEDS: FLUoxetine 20 MG CAP PO SCH (09:18)
[2018-11-20] MEDS: IBUPROFEN 800 MG TAB PO PRN ×2 (09:18→16:19)
[2018-11-20] MEDS: hydroCHLOROthiazide 12.5 MG CAPSULE PO SCH (09:18)
[2018-11-20] MEDS: OLANZapine ORAL DISINTEGRATING TAB 5MG PO PRN ×2 (09:21→19:37)
--- NOTE | 2018-11-20 13:31 | HPEPDOC ---
General Date of Admission November 20, 2018 at 03:11 Attending Physician: VITO BOTELLO MD Chief Complaint The patient is a 38-year-old female admitted with a reason for visit of Schizoaffective Disorder. Source: Patient, RN/, RN notes reviewed, Old records Exam Limitations: Clinical conditions Timing/Duration: Unsure Severity: Severe History of Present Illness Patient is a 38-year-old female, past medical history significant for hypertension, morbid obesity, migraine headaches, fibromyalgia, polysubstance ab use, nicotine dependence and other psychiatric history as listed below, admitted for auditory hallucinations. Patient reports symptoms of auditory hallucinations in the past 6 months with worsening in the past 1 week. She feels her medications stopped working, and was not sleeping well, was having worsening anxiety and agitation. She is admitted to the inpatient psychiatric unit for further evaluation and management. On assessment, she complains of headache and bilateral lower extremity swelling. . She denies chest pain, shortness of breath, nausea, vomiting, abdominal pain. Home Medications Scheduled Dextroamphetamine/Amphetamine (Adderall 20 mg Tablet) 20 Mg Tablet, 20 MG PO BID, (Reported) TAKES IN MORNING AND AT NOON Fluoxetine Hcl (Fluoxetine HCl) 20 Mg Capsule, 40 MG PO DAILY, (Reported) Hydrochlorothiazide (Hydrochlorothiazide) 12.5 Mg Tablet, 12.5 MG PO DAILY, (Reported) Methadone HCl (Methadone HCl) 10 Mg/1 Ml Oral.conc, 120 MG PO DAILY, (Reported) Olanzapine (Olanzapine Odt) 10 Mg Tab.rapdis, 10 MG PO QHS, (Reported) Ranitidine HCl (Ranitidine HCl) 150 Mg Tablet, 1 TAB PO BID, (Reported) Scheduled PRN Albuterol Sulfate (Ventolin Hfa) 18 Gm Hfa.aer.ad, 2 PUFFS INH Q4H PRN for SHORTNESS OF BREATH, (Reported) Hydroxyzine HCl (Hydroxyzine HCl) 50 Mg Tablet, 50 MG PO Q8H PRN for ANXIETY, (Reported) Ibuprofen (Ibuprofen) 800 Mg Tablet, 800 MG PO Q6H PRN for PAIN, (Reported) Ondansetron HCl (Ondansetron HCl) 4 Mg Tablet, 4 MG PO Q6H PRN for NAUSEA OR VOMITING, (Reported) Allergies Coded Allergies: Penicillins (Verified Allergy, Unknown, 11/19/18) clonidine (Verified Allergy, Unknown, 11/19/18) duloxetine (Verified Allergy, Unknown, 11/19/18) latex (Verified Allergy, Unknown, 11/19/18) trazodone (Verified Allergy, Unknown, 11/19/18) ziprasidone (Verified Allergy, Unknown, 11/19/18) Past Medical History Medical History Hypertension Morbid obesity BMI 44 Degenerative disc disease Fibromyalgia Migraine headache Heroine abuse THC abuse Anorexia nervosa GERD Surgical History Cholecystectomy Abdominal Laparoscopic surgery Family History Father: Diabetes mellitus, hypertension Mother: Asthma Social History Smokes half a pack per day, denies alcohol, polysubstance abuse with heroine and THC A-FIB/CHADSVASC A-FIB History Current/History of A-Fib/PAF?: No Current Oral Anticoagulant The: No Review of Systems Other systems A 10 point pertinent review of systems was completed, negative except as stated in the history of presenting illness Physical Examination Other physical findings GENERAL: Morbidly obese female in no acute distress SKIN : Warm, dry intact HEENT: Atraumatic, normocephalic, PERRL, moist mucous membranes CV: Regular rate and rhythm, S1S2, no JVD, BLE 1+edema, distal pulses + and palpable RESP: CTAB, no accessory muscle use noted ABDOMEN: BS+, non distended non tender MS: no joint deformities NEURO: Alert and oriented x 3, CN2-12 grossly intact PSYCH: no anxiety or agitation, appropriate mood and affect. Vital Signs Vital Signs Date Time Temp Pulse Resp B/P (MAP) Pulse Ox O2 Delivery O2 Flow Rate FiO2 11/20/18 04:02 97.5 86 18 142/86 (104) 11/20/18 03:51 90 Room Air Laboratory Data Labs 24H Laboratory Tests 2 11/19/18 22:10: Nucleated Red Blood Cells % (auto) 0.0, Anion Gap 2L, Glomerular Filtration Rate > 60.0, Calcium Level 7.7L, Aspartate Amino Transf (AST/SGOT) 22, Alanine Aminotransferase (ALT/SGPT) 21, Alkaline Phosphatase 115, Total Bilirubin 0.2, Direct Bilirubin < 0.1, Total Protein 6.1L, Albumin 2.9L, Albumin/Globulin Ratio 0.91L, Thyroid Stimulating Hormone (TSH) 0.940, Human Chorionic Gonadotropin, Qual NEGATIVE, Salicylates Level 3.0L, Urine Amphetamines Screen POSITIVEH, Urine Benzodiazepines Screen NEGATIVE, Urine Opiates Screen NEGATIVE, Urine Methadone Screen POSITIVEH, Acetaminophen Level 5.5L, Urine Barbiturates Screen NEGATIVE, Urine Phencyclidine Screen NEGATIVE, Urine Cocaine Metabolite Screen NEGATIVE, Urine Cannabinoids Screen POSITIVEH, Ethyl Alcohol Level < 0.003 CBC/BMP Laboratory Tests 11/19/18 22:10 Red Blood Count 4.29, Mean Corpuscular Volume 88.8, Mean Corpuscular Hemoglobin 25.6 L, Mean Corpuscular Hemoglobin Concent 28.9 L, Red Cell Distribution Width 17.7 H Assessment/Plan Hypertension -Continue hydrochlorothiazide 12.5 mg daily -Therapeutic lifestyle changes discussed low-sodium diet recommended Migraine headache -Patient is unsure of the dose of Imitrex -Start 100 mg daily as needed GERD -Zantac 150 milligrams twice a day Localized Edema -Continue HCTZ 12.5 daily -TEDS Morbid obesity -Therapeutic lifestyle changes discussed with patient Acute psychosis with auditory hallucination -Management by primary team Plan / VTE VTE Prophylaxis Ordered?: Yes TERRIE VENTURA November 20, 2018 13:31
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
[2018-11-20] MEDS ORDERED: PALIPERIDONE 3 MG ER TAB (INVEGA) PO ONE (14:15)
[2018-11-20] MEDS: MOM 30ML SUSPENSION UDC PO PRN (14:35)
[2018-11-20] MEDS ORDERED: GABAPENTIN 300 MG CAP PO SCH (16:00)
[2018-11-20 18:00] VITALS: BP 98/58
[2018-11-20] MEDS ORDERED: risperiDONE 2 MG TAB PO SCH (21:00)
[2018-11-20] MEDS ORDERED: PALIPERIDONE 3 MG ER TAB (INVEGA) PO SCH (21:00)
[2018-11-20] MEDS: GABAPENTIN 100 MG CAP PO SCH (23:04)
[2018-11-21] MEDS: IBUPROFEN 800 MG TAB PO PRN ×2 (01:03→22:28)
[2018-11-21] MEDS: ACETAMINOPHEN TAB 650MG DOSE (2X325MG) PO PRN ×2 (02:10→14:36)
[2018-11-21] MEDS: SUMAtriptan SUCCINATE 25 MG TAB PO PRN ×2 (04:25→22:48)
[2018-11-21 04:30] VITALS: BP 158/78
[2018-11-21] MEDS: ALBUTEROL 90 MCG/ACT 8GM HFA INHALER INH PRN ×2 (06:33→19:28)
[2018-11-21 07:18] VITALS: BP 133/87
[2018-11-21] MEDS: raNITIdine SYRUP 150 MG/10 ML UDC PO SCH ×2 (08:18→20:43)
[2018-11-21] MEDS: METHADONE 10 MG TAB (S0109) PO SCH (08:18)
[2018-11-21] MEDS: NICOTINE 21MG/24HR 1 EA TRANSDERMAL TD SCH (08:19)
[2018-11-21] MEDS: busPIRone 10 MG TAB PO SCH ×3 (08:19→20:43)
[2018-11-21] MEDS: GABAPENTIN 100 MG CAP PO SCH ×2 (08:19→20:43)
[2018-11-21] MEDS: hydroCHLOROthiazide 12.5 MG CAPSULE PO SCH (08:19)
[2018-11-21] MEDS: FLUoxetine 20 MG CAP PO SCH (08:19)
[2018-11-21] MEDS ORDERED: PALIPERIDONE 3 MG ER TAB (INVEGA) PO SCH (09:00)
[2018-11-21] MEDS: OLANZapine ORAL DISINTEGRATING TAB 5MG PO PRN ×2 (10:20→22:28)
--- NOTE | 2018-11-21 11:05 | MHIPNPDOC ---
[facility] Progress Note Progress Note DATE OF SERVICE: 11/21/18 HISTORY: Patient is a 38 -year-old , female, with a history of PTSD, multiple substance abuse, psychosis, bipolar d/o, last d/c [facility] 10/26/18 for psychosis who presented to ED after having just been there and d/c with c/o nausea, endorsing AH for the past 24hrs and increasing telling here people/her boyfriend were trying to poison her, boyfriend was going to harm here, she should . Denied command AH. Denied SI/HI. Pt's boyfriend was called from the ED and told them that pt is having delusions that's he's trying to poison her and that she was talking to her son earlier in the day who wasn't even present. He told the ED that he was concerned for the patient and her overall safety and ability to function. Pt in the ED endorsed poor concentration, anxiety, depression, hopelessness, helplessness. Pt stated she had taken zyprexa prior to presenting to the hospital for assessment prior admission per ED. Pt was d/c on risperidone 2mg bid for psychosis which is not noted in the ED record that pt was taking nor compliant on it. Pt also told ED that she is "prescribed" medical marijuana which is also incorrect as pt abuses marijuana she states b/c it helps her medically. She is not prescribed it. VITAL SIGNS: See below. NEW TEST RESULTS: See below. CURRENT MEDICATIONS: See below. MENTAL STATUS EXAMINATION: General Appearance: clean, disheveled, appears stated age, hospital scrubs/clothing Build: overweight Demeanor: average Eye Contact: average Activity: average, anxious Behavior: cooperative Speech: clear, reg/rate,rhythm,volume Mood: less depressed, anxious Mood "better" Affect: full, appropriate, congruent, anxious Thought Process: logical/linear, less depressed Thought Content (Delusions): denies paranoia, delusions. Denies AH and VH. Denies SI/HI Thought Content (Other): preoccupied, ideas of reference, internal-stimuli Thought Content (Aggressive): none reported Perception (Hallucinations): none reported Perception (Other): none reported Cognition (Impairment of): none reported Cognition(Intelligence Est.): average Oriented: Awake, Alert, Oriented times three Insight: fair Judgment: Fair Psychosis: improved Psychotic Perceptions DIAGNOSES: Psychosis Unspecified R/O bipolar d/o mre depressed with psychosis R/O substance induced psychosis secondary either amphetamines or cannabis or both PTSD Opioid use d/o in remission Cannabis/Amphetamine use d/o ASSESSMENT:Pt seen and states she's doing better and finding invega very beneficial for her AH and paranoia, tolerating it well. Agreeable to starting invega sustenna 234mg im today then 156mg im on Monday. Risks benefits discussed. Called yesterday due to low respirations after pt had taken methadone 120mg (was confirmed by [facility]). Decreased methadone to 80mg daily that pt is tolerating well and vitals remain stable. Was anxious about dose but since taking it and finding out why she is agreeable to dose. Denies methadone withdrawal. Talked to pt and provided information and clinical guide lines for substance abuse treatment and bipolar d/o with psychosis. States she would like to switch to suboxone outpatient as is safer and then maybe detox off opiates all together using suboxone. States she will stop amphetamine use and cannabis use after educated on the risks of psychosis and paranoia (symptoms she was having) that are side effects of substances. States her boyfriend is very supportive. Denies AH, delusions, and paranoia. Thoughts are linear and logical. Denies SI/HI. Is attending groups and finding beneficial. She feels safe here. MANAGEMENT PLAN:continue plan Buspar 10 mg TID PROzac 20 mg DAILY Gabapentin 100 mg QAM Gabapentin 200 mg QHS Hydroxyzine 50 mg Q6HP PRN PO ANXIETY/AGITATION Methadone 80 mg DAILY ZyPREXA ZYDIS 5 mg Q6HP PRN PO ANXIETY/AGITATION invega sustenna 234mg im today then 156mg Monday TIME SPENT: 30 minutes. Vital Signs Vital Signs Date Time Temp Pulse Resp B/P (MAP) Pulse Ox O2 Delivery O2 Flow Rate FiO2 11/21/18 07:18 98.4 96 14 133/87 (102) 11/21/18 04:30 97 11/20/18 03:51 Room Air Current Medications Current Medications Acetaminophen (Tylenol Tab) 650 mg Q6HP PRN PO HEADACHE or DISCOMFORT Last administered on 11/21/18at 02:10; Start 11/20/18 at 03:15 Al Hydrox/Mg Hydrox/Simethicone (Mylanta) 30 ml Q4HP PRN PO HEARTBURN/INDIGESTION; Start 11/20/18 at 03:15 Albuterol Sulfate (Proventil, Ventolin Hfa) 2 puff Q4H PRN INH SHORTNESS OF BREATH Last administered on 11/21/18 06:33; Start 11/20/18 at 04:00 Buspirone HCl (Buspar) 10 mg TID PO Last administered on 11/21/18 08:19; Start 11/20/18 at 09:00 Fluoxetine HCl (PROzac) 20 mg DAILY PO Last administered on 11/21/18 08:19; Start 11/20/18 at 09:00 Gabapentin (Neurontin) 100 mg QAM PO Last administered on 11/21/18 08:19; Start 11/21/18 at 09:00 Gabapentin (Neurontin) 200 mg QHS PO Last administered on 11/20/18 23:04; Start 11/20/18 at 21:00 Gabapentin (Neurontin) 600 mg TID PO ; Start 11/20/18 at 16:00; Stop 11/20/18 at 16:28; Status DC Home Med (Med Rec Complete!) ASDIRECTED XX ; Start 11/20/18 at 04:00; Stop 11/20/18 at 04:00; Status DC Hydrochlorothiazide (Hydrodiuril) 12.5 mg DAILY PO Last administered on 11/21/18 08:19; Start 11/20/18 at 09:00 Hydroxyzine HCl (Atarax) 50 mg Q6HP PRN PO ANXIETY/AGITATION; Start 11/20/18 at 04:15 Ibuprofen (Advil) 800 mg Q6HP PRN PO MODERATE PAIN (PS 5-7) Last administered on 11/21/18 01:03; Start 11/20/18 at 08:45 Magnesium Hydroxide (Milk Of Magnesia) 30 ml DAILYPRN PRN PO CONSTIPATION Last administered on 11/20/18 14:35; Start 11/20/18 at 03:15 Methadone HCl (Dolophine) 80 mg DAILY PO Last administered on 11/21/18 08:18; Start 11/21/18 at 09:00 Methadone HCl (Dolophine) 120 mg DAILY PO Last administered on 11/20/18at 10:14; Start 11/20/18 at 09:00; Stop 11/20/18 at 17:24; Status DC Nicotine (Nicoderm Cq 21mg) 1 patch DAILY TD Last administered on 11/21/18at 08:19; Start 11/20/18 at 09:00 Olanzapine (ZyPREXA ZYDIS) 5 mg Q6HP PRN PO ANXIETY/AGITATION Last ad ministered on 11/20/18at 19:37; Start 11/20/18 at 03:15 Paliperidone (Invega) 3 mg QAM PO Last administered on 11/21/18at 08:19; Start 11/21/18 at 09:00 Paliperidone (Invega) 3 mg QHS PO Last administered on 11/20/18at 23:04; Start 11/20/18 at 21:00 Ranitidine HCl (Zantac) 150 mg BID PO Last administered on 11/21/18 08:18; Start 11/20/18 at 09:00 Risperidone (RisperDAL) 2 mg QHS PO ; Start 11/20/18 at 21:00; Status Cancel Sumatriptan Succinate (Imitrex) 100 mg BIDP PRN PO MODERATE/SEVERE PAIN (PS 5- 10) Last administered on 11/21/18at 04:25; Start 11/20/18 at 13:45 Allergies Coded Allergies: Penicillins (Verified Allergy, Unknown, 11/19/18) clonidine (Verified Allergy, Unknown, 11/19/18) duloxetine (Verified Allergy, Unknown, 11/19/18) latex (Verified Allergy, Unknown, 11/19/18) trazodone (Verified Allergy, Unknown, 11/19/18) ziprasidone (Verified Allergy, Unknown, 11/19/18) A-FIB/CHADSVASC A-FIB History Current/History of A-Fib/PAF?: No Current Oral Anticoagulant The: No Treatment Treatment ordered: NONE Reason Anticoagulant not given: Not indicated/[id number] SIENA ALANIZ DO November 21, 2018 9:39 am
[2018-11-21] MEDS: hydrOXYzine 50 MG TAB PO PRN (11:34)
[2018-11-21 11:38] VITALS: BP 150/90
[2018-11-21] MEDS ORDERED: PALIPERIDONE PALMITATE 234MG/1.5ML INJ (INVEGA)(J2426)(FREE PSY INPT ONLY) IM ONE (12:00)
--- NOTE | 2018-11-21 12:37 | IPNPDOC ---
Subjective Date Seen The patient was seen on 11/21/18. Subjective Chief Complaint/HPI Patient is a 38-year-old female, past medical history significant for hypertension, morbid obesity, migraine headaches, fibromyalgia, polysubstance abuse, nicotine dependence and other psychiatric history as listed below, admitted for auditory hallucinations. Patient reports symptoms of auditory hallucinations in the past 6 months with worsening in the past 1 week. She feels her medications stopped working, and was not sleeping well, was having worsening anxiety and agitation. She is admitted to the inpatient psychiatric unit for further evaluation and management. On assessment, she complains of headache and bilateral lower extremity swelling. . She denies chest pain, shortness of breath, nausea, vomiting, abdominal pain. No new complaints at the present time General: Denies: ROS Unobtainable, Chills, Night Sweats, Fatigue, Malaise, Normal Appetite, Other Symptoms Constitutional: Denies: Chills, Fever, Malaise, Night Sweats, Weakness, Fatigue, Weight Loss, Lethargy, Other Eyes: Denies: Pain, Vision change, Conjunctivae inflammation, Eyelid inflammation, Redness, Other ENT: Denies: Head Aches, Ear Pain, Dysphagia, Sinus Congestion, Post Nasal Drip, Sore Throat, Epistaxis, Other Symptoms Skin: Denies: Rash, Lesions, Jaundice, Bruising, Itching, Dry, Breakdown, Nail Changes, Other Pulmonary: Denies: Dyspnea, Cough, Pleuritic Chest Pain, Other Symptoms Cardiovascular: Denies: Chest Pain, Palpitations, Orthopnea, Paroxysmal Noc. Dyspnea, Edema, Lt Headedness, Other Symptoms Gastrointestinal: Denies: Nausea, Vomiting, Abdominal Pain, Diarrhea, Constipation, Melena, Hematochezia, Other Symptoms Genitourinary: Denies: Dysuria, Frequency, Incontinence, Hematuria, Retention, Other Symptoms Hematologic: Denies: Bruising, Bleeding Excessively, Petecchia, Purpura, Enlarged Lymph Nodes, Other Hematologic Endocrine: Denies: Polydipsia, Polyphagia, Polyuria, Heat Intolerance, Cold Intolerance, Other Endocrine Sx Musculoskeletal: Denies: Neck Pain, Back Pain, Shoulder Pain, Arm Pain, Hand Pain, Leg Pain, Foot Pain, Joint Pain, Muscle Pain, Spasms, Other Symptoms Neurological: Denies: Weakness, Numbness, Incoordination, Change in speech, Confusion, Seizures, Other Symptoms Psych: Denies: Mood Normal, Anxiety, Depression, Memory Issues, Thoughts of Self Harm, Anger, Thoughts of Harming Other, Other Psych Objective Physical Examination General Exam: Negative: Alert, Cooperative, No Acute Distress, Mild Distress, Moderate Distress, Severe Distress, Other Eye Exam: Negative: PERRLA, Conjunctiva & lids normal, EOMI, Sclera icteric, Ptosis, Other Eye Symptoms ENT Exam: Negative: Atraumatic, Mucous membr. moist/pink, Pharynx Normal, Tongue Midline, Pharyngeal Edema, Nares Patent, Tympanic Membranes Normal, Ext Auditory Canal Nml, Pinna Normal, Other ENT Neck Exam: Negative: Supple, JVD, thyromegaly, +2 carotid pulse wo bruit, Lymphadenopathy, Other Heart Exam: Negative: Rate Normal, Tachycardic, Bradycardic, Regular Rhythm, Irregular Rhythm, Normal S1, Normal S2, Gallops, Murmurs, Rubs, Other Abdomen Exam: Negative: Normal bowel sounds, BS Hyperactive, BS Hypoactive, Soft, Tenderness, Hepatospenomegaly, Mass, Hernia, Other Extremity Exam: Negative: Clubbing, Cyanosis, Edema, Normal pulses, Tenderness, Swelling, Other Skin Exam: Negative: Nl turgor and temperature, Rash, Breakdown, Lesion, Pruritus, Other skin issue Neuro Exam: Negative: Normal Gait, Normal Speech, Strength at 5/5 X4 ext, Normal Tone, Sensation Intact, Cranial Nerves 3-12 NL, Reflexes 2+, Other Psych Exam: Negative: Mental status NL, Mood NL, Anxiety, Memory Intact, Oriented x 3, Other A-FIB/CHADSVASC A-FIB History Current/History of A-Fib/PAF?: No Assessment /Plan Problems (1) HTN (hypertension) Status: Chronic Response to Treatment: Stable Problem Text: Increase had a chlorothiazide to 25 mg by mouth daily Low salt diet 2. Meds (2) Migraine Status: Chronic Problem Text: Continue home meds Plan/VTE VTE Prophylaxis Ordered?: Yes VS, I&O, 24H, Fishbone Vital Signs/I&O Vital Signs Date Time Temp Pulse Resp B/P (MAP) Pulse Ox O2 Delivery O2 Flow Rate FiO2 11/21/18 11:38 99.3 85 16 150/90 (110) 11/21/18 04:30 97 11/20/18 03:51 Room Air VITO BOTELLO MD November 21, 2018 12:37
[2018-11-21 14:45] VITALS: BP 177/91
[2018-11-21] MEDS: MOM 30ML SUSPENSION UDC PO PRN (15:31)
[2018-11-21 15:43] VITALS: BP 120/79
[2018-11-21 18:41] VITALS: BP 120/79
--- NOTE | 2018-11-22 00:48 | ECGEPIP ---
Stationary ECG Study [facility] Test Date: 2018-11-21 Pat Name: HEMA DE LA CRUZ Department: Room: [place] [address] Gender: F Clinical Trials Specialist: SUNDEEP : 1980 Requested By: SIENA Alatorre Order Number: [id number] Reading MD: Virgilio Valero Measurements Intervals [place] Rate: 88 P: 73 WI: 123 QRS: 93 QRSD: 88 T: 63 QT: 395 QTc: 480 Interpretive Statements SINUS RHYTHM BORDERLINE RIGHT AXIS DEVIATION COMPARED TO THE LAST 3 TRACINGS, AXIS THEN WAS NORMAL Electronically Signed On 11-22-2018 0:47:54 EDT by Virgilio Valero
[2018-11-22] MEDS: hydrOXYzine 50 MG TAB PO PRN ×3 (02:45→19:59)
[2018-11-22] MEDS: ACETAMINOPHEN TAB 650MG DOSE (2X325MG) PO PRN (02:46)
[2018-11-22 06:42] VITALS: BP 113/67
[2018-11-22] MEDS: raNITIdine SYRUP 150 MG/10 ML UDC PO SCH ×2 (08:13→19:59)
[2018-11-22] MEDS: hydroCHLOROthiazide 25 MG TAB PO SCH (08:13)
[2018-11-22] MEDS: FLUoxetine 20 MG CAP PO SCH (08:13)
[2018-11-22] MEDS: busPIRone 10 MG TAB PO SCH ×3 (08:13→19:59)
[2018-11-22] MEDS: GABAPENTIN 100 MG CAP PO SCH ×2 (08:13→19:59)
[2018-11-22] MEDS: NICOTINE 21MG/24HR 1 EA TRANSDERMAL TD SCH (08:14)
[2018-11-22] MEDS: METHADONE 10 MG TAB (S0109) PO SCH (08:15)
--- NOTE | 2018-11-22 10:00 | MHIPNPDOC ---
[facility] Progress Note Progress Note DATE OF SERVICE: 11/22/18 HISTORY: Patient is a 38 -year-old , female, with a history of PTSD, multiple substance abuse, psychosis, bipolar d/o, last d/c [facility] 10/26/18 for psychosis who presented to ED after having just been there and d/c with c/o nausea, endorsing AH for the past 24hrs and increasing telling here people/her boyfriend were trying to poison her, boyfriend was going to harm here, she should . Denied command AH. Denied SI/HI. Pt's boyfriend was called from the ED and told them that pt is having delusions that's he's trying to poison her and that she was talking to her son earlier in the day who wasn't even present. He told the ED that he was concerned for the patient and her overall safety and ability to function. Pt in the ED endorsed poor concentration, anxiety, depression, hopelessness, helplessness. Pt stated she had taken zyprexa prior to presenting to the hospital for assessment prior admission per ED. Pt was d/c on risperidone 2mg bid for psychosis which is not noted in the ED record that pt was taking nor compliant on it. Pt also told ED that she is "prescribed" medical marijuana which is also incorrect as pt abuses marijuana she states b/c it helps her medically. She is not prescribed it. VITAL SIGNS: See below. NEW TEST RESULTS: See below. CURRENT MEDICATIONS: See below. MENTAL STATUS EXAMINATION: General Appearance: clean, disheveled, appears stated age, hospital scrubs/clothing Build: overweight Demeanor: average Eye Contact: average Activity: average, anxious Behavior: cooperative Speech: clear, rapid, talkative, normal volume Mood: less depressed, anxious Mood "better" Affect: full, appropriate, congruent, anxious Thought Process: logical/linear, less depressed Thought Content (Delusions): denies paranoia, delusions. Denies AH and VH. Denies SI/HI Thought Content (Other): preoccupied thoughts Thought Content (Aggressive): none reported Perception (Hallucinations): none reported Perception (Other): none reported Cognition (Impairment of): none reported Cognition(Intelligence Est.): average Oriented: Awake, Alert, Oriented times three Insight: fair Judgment: Fair Psychosis: improved Psychotic Perceptions DIAGNOSES: Psychosis Unspecified R/O bipolar d/o mre depressed with psychosis R/O substance induced psychosis secondary either amphetamines or cannabis or both PTSD Opioid use d/o in remission Cannabis/Amphetamine use d/o ASSESSMENT:Pt seen and states she's doing better and after receiving invega sustenna 234mg im yesterday as she tolerated it well and states "my voices are finally gone". Agreeable to invega sustenna 156mg im on Monday. Appreciative a methadone decrease as realized now she wasn't functioning properly at home after speaking with her boyfriend who told her that was why he didn't leave eir 6y/o son alone with her due to fear for his safety b/c she would be so overmedicated from the methadone. States she spoke with her son on the phone last night who even noticed the difference and she was happy to hear that. Denies methadone withdrawal. Countinues to state she would like to switch to suboxone outpatient as is safer and then maybe detox off opiates all together using suboxone. States she will stop amphetamine use and cannabis use after educated on the risks of psychosis and paranoia (symptoms she was having) that are side effects of substances. States her boyfriend is very supportive. Denies AH, delusions, and paranoia. Thoughts are linear and logical. Denies SI/HI. Is attending groups and finding beneficial. She feels safe here. MANAGEMENT PLAN:continue plan Buspar 10 mg TID PROzac 20 mg DAILY Gabapentin 100 mg QAM Gabapentin 200 mg QHS Hydroxyzine 50 mg Q6HP PRN PO ANXIETY/AGITATION Methadone 80 mg DAILY ZyPREXA ZYDIS 5 mg Q6HP PRN PO ANXIETY/AGITATION invega sustenna 234mg im today then 156mg Monday TIME SPENT: 30 minutes. Vital Signs Vital Signs Date Time Temp Pulse Resp B/P (MAP) Pulse Ox O2 Delivery O2 Flow Rate FiO2 11/22/18 06:42 98.2 102 14 113/67 (82) 11/21/18 04:30 97 11/20/18 03:51 Room Air Current Medications Current Medications Acetaminophen (Tylenol Tab) 650 mg Q6HP PRN PO HEADACHE or DISCOMFORT Last administered on 11/22/18at 02:46; Start 11/20/18 at 03:15 Al Hydrox/Mg Hydrox/Simethicone (Mylanta) 30 ml Q4HP PRN PO HEARTBURN/INDIGESTION; Start 11/20/18 at 03:15 Albuterol Sulfate (Proventil, Ventolin Hfa) 2 puff Q4H PRN INH SHORTNESS OF BREATH Last administered on 11/21/18 19:28; Start 11/20/18 at 04:00 Buspirone HCl (Buspar) 10 mg TID PO Last administered on 11/22/18 08:13; Start 11/20/18 at 09:00 Fluoxetine HCl (PROzac) 20 mg DAILY PO Last administered on 11/22/18 08:13; Start 11/20/18 at 09:00 Gabapentin (Neurontin) 100 mg QAM PO Last administered on 11/22/18 08:13; Start 11/21/18 at 09:00 Gabapentin (Neurontin) 200 mg QHS PO Last administered on 11/21/18 20:43; Start 11/20/18 at 21:00 Gabapentin (Neurontin) 600 mg TID PO ; Start 11/20/18 at 16:00; Stop 11/20/18 at 16:28; Status DC Home Med (Med Rec Complete!) ASDIRECTED XX ; Start 11/20/18 at 04:00; Stop 11/20/18 at 04:00; Status DC Hydrochlorothiazide (Hydrodiuril) 12.5 mg DAILY PO Last administered on 11/21/18 08:19; Start 11/20/18 at 09:00; Stop 11/21/18 at 15:00; Status DC Hydrochlorothiazide (Hydrodiuril) 25 mg DAILY PO Last administered on 11/22/18 08:13; Start 11/22/18 at 09:00 Hydroxyzine HCl (Atarax) 50 mg Q6HP PRN PO ANXIETY/AGITATION Last administered on 11/22/18 02:45; Start 11/20/18 at 04:15 Ibuprofen (Advil) 800 mg Q6HP PRN PO MODERATE PAIN (PS 5-7) Last administered on 11/21/18 22:28; Start 11/20/18 at 08:45 Magnesium Hydroxide (Milk Of Magnesia) 30 ml DAILYPRN PRN PO CONSTIPATION Last administered on 11/21/18 15:31; Start 11/20/18 at 03:15 Methadone HCl (Dolophine) 80 mg DAILY PO Last administered on 11/22/18 08:15; Start 11/21/18 at 09:00 Methadone HCl (Dolophine) 120 mg DAILY PO Last administered on 11/20/18at 10:14; Start 11/20/18 at 09:00; Stop 11/20/18 at 17:24; Status DC Nicotine (Nicoderm Cq 21mg) 1 patch DAILY TD Last administered on 11/22/18 08:14; Start 11/20/18 at 09:00 Olanzapine (ZyPREXA ZYDIS) 5 mg Q6HP PRN PO ANXIETY/AGITATION Last administered on 11/21/18 22:28; Start 11/20/18 at 03:15 Paliperidone (Invega) 3 mg QAM PO Last administered on 11/21/18 08:19; Start 11/21/18 at 09:00; Stop 11/21/18 at 11:06; Status DC Paliperidone (Invega) 3 mg QHS PO Last administered on 11/20/18at 23:04; Start 11/20/18 at 21:00; Stop 11/21/18 at 11:06; Status DC Ranitidine HCl (Zantac) 150 mg BID PO Last administered on 11/22/18 08:13; Start 11/20/18 at 09:00 Risperidone (RisperDAL) 2 mg QHS PO ; Start 11/20/18 at 21:00; Status Cancel Sumatriptan Succinate (Imitrex) 100 mg BIDP PRN PO MODERATE/SEVERE PAIN (PS 5- 10) Last administered on 11/21/18at 22:48; Start 11/20/18 at 13:45 Allergies Coded Allergies: Penicillins (Verified Allergy, Unknown, 11/19/18) clonidine (Verified Allergy, Unknown, 11/19/18) duloxetine (Verified Allergy, Unknown, 11/19/18) latex (Verified Allergy, Unknown, 11/19/18) trazodone (Verified Allergy, Unknown, 11/19/18) ziprasidone (Verified Allergy, Unknown, 11/19/18) A-FIB/CHADSVASC A-FIB History Current/History of A-Fib/PAF?: No Current Oral Anticoagulant The: No Treatment Treatment ordered: NONE Reason Anticoagulant not given: Not indicated/[id number] SIENA ALANIZ DO November 22, 2018 10:00 am
[2018-11-22] MEDS: OLANZapine ORAL DISINTEGRATING TAB 5MG PO PRN ×2 (10:04→21:21)
--- NOTE | 2018-11-22 11:35 | IPNPDOC ---
Subjective Date Seen The patient was seen on 11/22/18. Subjective Chief Complaint/HPI Patient requesting pain control. Consultation offers no new other complaints General: Denies: ROS Unobtainable, Chills, Night Sweats, Fatigue, Malaise, Normal Appetite, Other Symptoms Constitutional: Denies: Chills, Fever, Malaise, Night Sweats, Weakness, Fatigue, Weight Loss, Lethargy, Other Eyes: Denies: Pain, Vision change, Conjunctivae inflammation, Eyelid inflammation, Redness, Other ENT: Denies: Head Aches, Ear Pain, Dysphagia, Sinus Congestion, Post Nasal Drip, Sore Throat, Epistaxis, Other Symptoms Skin: Denies: Rash, Lesions, Jaundice, Bruising, Itching, Dry, Breakdown, Nail Changes, Other Pulmonary: Denies: Dyspnea, Cough, Pleuritic Chest Pain, Other Symptoms Cardiovascular: Denies: Chest Pain, Palpitations, Orthopnea, Paroxysmal Noc. Dyspnea, Edema, Lt Headedness, Other Symptoms Gastrointestinal: Denies: Nausea, Vomiting, Abdominal Pain, Diarrhea, Constipation Genitourinary: Denies: Dysuria, Frequency, Incontinence, Hematuria, Retention, Other Symptoms Hematologic: Denies: Bruising, Bleeding Excessively, Petecchia, Purpura, Enlarged Lymph Nodes, Other Hematologic Endocrine: Denies: Polydipsia, Polyphagia, Polyuria, Heat Intolerance, Cold Intolerance, Other Endocrine Sx Musculoskeletal: Denies: Neck Pain, Back Pain, Shoulder Pain, Arm Pain, Hand Pain, Leg Pain, Foot Pain, Joint Pain, Muscle Pain, Spasms, Other Symptoms Neurological: Denies: Weakness, Numbness, Incoordination, Change in speech, Confusion, Seizures, Other Symptoms Psych: Denies: Mood Normal, Anxiety, Depression, Memory Issues, Thoughts of Self Harm, Anger, Thoughts of Harming Other, Other Psych Objective Physical Examination General Exam: Negative: Alert, Cooperative, No Acute Distress, Mild Distress, Moderate Distress, Severe Distress, Other Eye Exam: Negative: PERRLA, Conjunctiva & lids normal, EOMI, Sclera icteric, Ptosis, Other Eye Symptoms ENT Exam: Negative: Atraumatic, Mucous membr. moist/pink, Pharynx Normal, Tongue Midline, Pharyngeal Edema, Nares Patent, Tympanic Membranes Normal, Ext Auditory Canal Nml, Pinna Normal, Other ENT Neck Exam: Negative: Supple, JVD, thyromegaly, +2 carotid pulse wo bruit, Lymphadenopathy, Other Heart Exam: Negative: Rate Normal, Tachycardic, Bradycardic, Regular Rhythm, Irregular Rhythm, Normal S1, Normal S2, Gallops, Murmurs, Rubs, Other Abdomen Exam: Negative: Normal bowel sounds, BS Hyperactive, BS Hypoactive, Soft, Tenderness, Hepatospenomegaly, Mass, Hernia, Other Extremity Exam: Negative: Clubbing, Cyanosis, Edema, Normal pulses, Tenderness, Swelling, Other Skin Exam: Negative: Nl turgor and temperature, Rash, Breakdown, Lesion, Pruritus, Other skin issue Neuro Exam: Negative: Normal Gait, Normal Speech, Strength at 5/5 X4 ext, Normal Tone, Sensation Intact, Cranial Nerves 3-12 NL, Reflexes 2+, Other Psych Exam: Negative: Mental status NL, Mood NL, Anxiety, Memory Intact, Oriented x 3, Other A-FIB/CHADSVASC A-FIB History Current/History of A-Fib/PAF?: No Assessment /Plan Problems (1) HTN (hypertension) Status: Chronic Response to Treatment: Stable Problem Text: Under well control with hydrochlorothiazide 25 mg by mouth daily Low salt diet exercise Will sign off. Please call as needed (2) Migraine Status: Chronic Problem Text: Continue home meds Plan/VTE VTE Prophylaxis Ordered?: Yes VS, I&O, 24H, Fishbone Vital Signs/I&O Vital Signs Date Time Temp Pulse Resp B/P (MAP) Pulse Ox O2 Delivery O2 Flow Rate FiO2 11/22/18 06:42 98.2 102 14 113/67 (82) 11/21/18 04:30 97 11/20/18 03:51 Room Air VITO BOTELLO MD November 22, 2018 11:35
[2018-11-22 18:00] VITALS: BP 130/71
[2018-11-22] MEDS: IBUPROFEN 800 MG TAB PO PRN (19:59)
[2018-11-22] MEDS: MOM 30ML SUSPENSION UDC PO PRN (23:01)
[2018-11-23] MEDS: ACETAMINOPHEN TAB 650MG DOSE (2X325MG) PO PRN (01:49)
[2018-11-23] MEDS: hydrOXYzine 50 MG TAB PO PRN ×2 (01:49→10:44)
[2018-11-23] MEDS: OLANZapine ORAL DISINTEGRATING TAB 5MG PO PRN (05:06)
[2018-11-23 06:58] VITALS: BP 138/80
[2018-11-23] MEDS: busPIRone 10 MG TAB PO SCH ×3 (08:22→20:02)
[2018-11-23] MEDS: GABAPENTIN 100 MG CAP PO SCH ×2 (08:22→20:01)
[2018-11-23] MEDS: hydroCHLOROthiazide 25 MG TAB PO SCH (08:22)
[2018-11-23] MEDS: raNITIdine SYRUP 150 MG/10 ML UDC PO SCH ×3 (08:23→21:00)
[2018-11-23] MEDS: FLUoxetine 20 MG CAP PO SCH (08:23)
[2018-11-23] MEDS: NICOTINE 21MG/24HR 1 EA TRANSDERMAL TD SCH (08:23)
[2018-11-23] MEDS: METHADONE 10 MG TAB (S0109) PO SCH (08:23)
--- NOTE | 2018-11-23 10:05 | MHIPNPDOC ---
[facility] Progress Note Progress Note DATE OF SERVICE: 11/23/18 HISTORY: Patient is a 38 -year-old , female, with a history of PTSD, multiple substance abuse, psychosis, bipolar d/o, last d/c [facility] 10/26/18 for psychosis who presented to ED after having just been there and d/c with c/o nausea, endorsing AH for the past 24hrs and increasing telling here people/her boyfriend were trying to poison her, boyfriend was going to harm here, she should . Denied command AH. Denied SI/HI. Pt's boyfriend was called from the ED and told them that pt is having delusions that's he's trying to poison her and that she was talking to her son earlier in the day who wasn't even present. He told the ED that he was concerned for the patient and her overall safety and ability to function. Pt in the ED endorsed poor concentration, anxiety, depression, hopelessness, helplessness. Pt stated she had taken zyprexa prior to presenting to the hospital for assessment prior admission per ED. Pt was d/c on risperidone 2mg bid for psychosis which is not noted in the ED record that pt was taking nor compliant on it. Pt also told ED that she is "prescribed" medical marijuana which is also incorrect as pt abuses marijuana she states b/c it helps her medically. She is not prescribed it. VITAL SIGNS: See below. NEW TEST RESULTS: See below. CURRENT MEDICATIONS: See below. MENTAL STATUS EXAMINATION: General Appearance: clean, disheveled, appears stated age, hospital scrubs/clothing Build: overweight Demeanor: average Eye Contact: average Activity: average, anxious Behavior: cooperative Speech: clear, rapid, talkative, normal volume Mood: less depressed, anxious Mood "ok" Affect: full, appropriate, congruent, anxious Thought Process: logical/linear, less depressed, negative thoughts inside her head in a different voice that "scare me" Thought Content (Delusions): denies paranoia, delusions. Denies VH. Denies SI/HI. Possible AH as stated above. paranoia that boyfriend cheating on her Thought Content (Other): preoccupied thoughts, paranoia that boyfriend cheating on her Thought Content (Aggressive): none reported Perception (Hallucinations): none reported Perception (Other): none reported Cognition (Impairment of): none reported Cognition(Intelligence Est.): average Oriented: Awake, Alert, Oriented times three Insight: fair Judgment: Fair Psychosis: Psychotic Perceptions DIAGNOSES: Psychosis Unspecified R/O bipolar d/o mre depressed with psychosis R/O substance induced psychosis secondary either amphetamines or cannabis or both PTSD Opioid use d/o in remission Cannabis/Amphetamine use d/o ASSESSMENT:Pt seen and states she's doing "ok" and tolerating invega sustenna, denies side effects, feels it's beneficial. Endorses worsening thoughts of she's "no good... no one likes you" that scare her and paranoia that her boyfriend is cheating on her and was yelling at him on the phone and accusing him last night per staff. Agreeable to restarting invega 6mg qhs for aid thoughts, paranoia, and also insomnia (had difficulty falling asleep last night due to paranoia). Denies methadone withdrawal. Countinues to state she would like to switch to suboxone outpatient as is safer and then maybe detox off opiates all together using suboxone. States she will stop amphetamine use and cannabis use after educated on the risks of psychosis and paranoia (symptoms she was having) that are side effects of substances. States her boyfriend is very supportive. Denies AH, delusions, and paranoia. Thoughts are linear and logical. Denies SI/HI. Is attending groups and finding beneficial. She feels safe here. MANAGEMENT PLAN:continue plan. add invega 6mg qhs for increase in paranoia, thoughts inside head that are negative Buspar 10 mg TID PROzac 20 mg DAILY Gabapentin 100 mg QAM Gabapentin 200 mg QHS Hydroxyzine 50 mg Q6HP PRN PO ANXIETY/AGITATION Methadone 80 mg DAILY ZyPREXA ZYDIS 5 mg Q6HP PRN PO ANXIETY/AGITATION invega sustenna 234mg im today then 156mg Monday invega 6mg qhs TIME SPENT: 30 minutes. Vital Signs Vital Signs Date Time Temp Pulse Resp B/P (MAP) Pulse Ox O2 Delivery O2 Flow Rate FiO2 11/23/18 06:58 97.5 104 16 138/80 (99) 11/21/18 04:30 97 11/20/18 03:51 Room Air Current Medications Current Medications Acetaminophen (Tylenol Tab) 650 mg Q6HP PRN PO HEADACHE or DISCOMFORT Last administered on 11/23/18 01:49; Start 11/20/18 at 03:15 Al Hydrox/Mg Hydrox/Simethicone (Mylanta) 30 ml Q4HP PRN PO HEARTBURN/INDIGESTION; Start 11/20/18 at 03:15 Albuterol Sulfate (Proventil, Ventolin Hfa) 2 puff Q4H PRN INH SHORTNESS OF BREATH Last administered on 11/21/18 19:28; Start 11/20/18 at 04:00 Buspirone HCl (Buspar) 10 mg TID PO Last administered on 11/23/18 08:22; Start 11/20/18 at 09:00 Fluoxetine HCl (PROzac) 20 mg DAILY PO Last administered on 11/23/18 08:23; Start 11/20/18 at 09:00 Gabapentin (Neurontin) 100 mg QAM PO Last administered on 11/23/18 08:22; Start 11/21/18 at 09:00 Gabapentin (Neurontin) 200 mg QHS PO Last administered on 11/22/18 19:59; Start 11/20/18 at 21:00 Gabapentin (Neurontin) 600 mg TID PO ; Start 11/20/18 at 16:00; Stop 11/20/18 at 16:28; Status DC Home Med (Med Rec Complete!) ASDIRECTED XX ; Start 11/20/18 at 04:00; Stop 11/20/18 at 04:00; Status DC Hydrochlorothiazide (Hydrodiuril) 12.5 mg DAILY PO Last administered on 11/21/18 08:19; Start 11/20/18 at 09:00; Stop 11/21/18 at 15:00; Status DC Hydrochlorothiazide (Hydrodiuril) 25 mg DAILY PO Last administered on 11/23/18 08:22; Start 11/22/18 at 09:00 Hydroxyzine HCl (Atarax) 50 mg Q6HP PRN PO ANXIETY/AGITATION Last administered on 11/23/18 01:49; Start 11/20/18 at 04:15 Ibuprofen (Advil) 800 mg Q6HP PRN PO MODERATE PAIN (PS 5-7) Last administered on 11/22/18 19:59; Start 11/20/18 at 08:45 Magnesium Hydroxide (Milk Of Magnesia) 30 ml DAILYPRN PRN PO CONSTIPATION Last administered on 11/22/18 23:01; Start 11/20/18 at 03:15 Methadone HCl (Dolophine) 80 mg DAILY PO Last administered on 11/23/18 08:23; Start 11/21/18 at 09:00 Methadone HCl (Dolophine) 120 mg DAILY PO Last administered on 11/20/18 10:14; Start 11/20/18 at 09:00; Stop 11/20/18 at 17:24; Status DC Nicotine (Nicoderm Cq 21mg) 1 patch DAILY TD Last administered on 11/23/18 08:23; Start 11/20/18 at 09:00 Olanzapine (ZyPREXA ZYDIS) 5 mg Q6HP PRN PO ANXIETY/AGITATION Last administered on 11/23/18 05:06; Start 11/20/18 at 03:15 Paliperidone (Invega) 3 mg QAM PO Last administered on 11/21/18 08:19; Start 11/21/18 at 09:00; Stop 11/21/18 at 11:06; Status DC Paliperidone (Invega) 3 mg QHS PO Last administered on 11/20/18 23:04; Start 11/20/18 at 21:00; Stop 11/21/18 at 11:06; Status DC Ranitidine HCl (Zantac) 150 mg BID PO Last administered on 11/23/18 08:23; Start 11/20/18 at 09:00 Risperidone (RisperDAL) 2 mg QHS PO ; Start 11/20/18 at 21:00; Status Cancel Sumatriptan Succinate (Imitrex) 100 mg BIDP PRN PO MODERATE/SEVERE PAIN (PS 5- 10) Last administered on 11/21/18 22:48; Start 11/20/18 at 13:45 Allergies Coded Allergies: Penicillins (Verified Allergy, Unknown, 11/19/18) clonidine (Verified Allergy, Unknown, 11/19/18) duloxetine (Verified Allergy, Unknown, 11/19/18) latex (Verified Allergy, Unknown, 11/19/18) trazodone (Verified Allergy, Unknown, 11/19/18) ziprasidone (Verified Allergy, Unknown, 11/19/18) A-FIB/CHADSVASC A-FIB History Current/History of A-Fib/PAF?: No Current Oral Anticoagulant The: No Treatment Treatment ordered: NONE Reason Anticoagulant not given: Not indicated/[id number] SIENA ALANIZ DO November 23, 2018 10:05 am
[2018-11-23] MEDS: MIRALAX *UNIT DOSE* 17GM PACKET PO PRN (13:10)
[2018-11-23] MEDS: IBUPROFEN 800 MG TAB PO PRN (13:26)
--- NOTE | 2018-11-23 14:06 | CR ---
DATE OF CONSULTATION: 11/23/2018 REFERRING PROVIDER: Dr. Vickie Galvan CHIEF COMPLAINT: Generalized body pain. HISTORY OF PRESENT ILLNESS Ashley is a 38-year-old female known to the pain clinic who was admitted for symptoms of auditory hallucinations. She has a history of polysubstance abuse. Currently on methadone daily via [facility] for addiction disorder. States that her pain is out of control. She is asking for medications for migraine headache. Complaining of new onset bilateral foot numbness and tingling. Rating pain level as a 7/10 VAS. ALLERGIES: PENICILLIN, CLONIDINE, DULOXETINE, LATEX, TRAZODONE, ZIPRASIDONE, LYRICA. PAST MEDICAL HISTORY: 1. Hypertension. 2. Morbid obesity. 3. Degenerative disc disease. 4. Fibromyalgia. 5. Migraine headache. 6. Heroin abuse. 7. THC abuse. 8. Anorexia nervosa. 9. Gastroesophageal reflux disease (GERD). SURGICAL HISTORY: 1. Cholecystectomy. 2. (C) section. 3. Abdominal laparoscopic surgery. FAMILY HISTORY: Father: Diabetes mellitus, hypertension. Mother: Asthma. SOCIAL HISTORY: She is smoker. She denies alcohol use. History of polysubstance abuse with heroin and THC. REVIEW OF SYSTEMS: 10-point review of systems is reviewed and is negative except as stated in HPI. PHYSICAL EXAMINATION: Awake, alert, pleasant. Vital signs: 97.5, 104, 16. BP 138/80. Cardiac: S1, S2, normal rate and rhythm. Respiratory: Lung sounds are clear. Respirations nonlabored. Inspection/palpation: Positive for tender areas indicative of fibromyalgia upper and lower torso bilaterally. Musculoskeletal : Muscle strength testing 5/5 upper and lower extremities. Neurologic: Normal sensation to light touch upper and lower extremities. Normal steady gait. ASSESSMENT: 1. Fibromyalgia. 2. Headaches. PLAN: I would recommend tizanidine 2 mg every 8 hours as needed for headache, pain and generalized fibromyalgia pain. The patient can return to the pain clinic on discharge for evaluation for injection therapy. CLARA
[2018-11-23 18:00] VITALS: BP 152/79
[2018-11-23] MEDS: tiZANidine 4 MG TAB PO PRN (18:44)
[2018-11-23] MEDS: ALBUTEROL 90 MCG/ACT 8GM HFA INHALER INH PRN (18:57)
[2018-11-23] MEDS: PALIPERIDONE 6 MG ER TAB (INVEGA) PO SCH (20:01)
[2018-11-24] MEDS: OLANZapine ORAL DISINTEGRATING TAB 5MG PO PRN ×2 (02:03→18:01)
[2018-11-24] MEDS: tiZANidine 4 MG TAB PO PRN (04:02)
[2018-11-24] MEDS: IBUPROFEN 800 MG TAB PO PRN ×2 (06:25→17:42)
[2018-11-24 06:39] VITALS: BP 139/73
[2018-11-24] MEDS: busPIRone 10 MG TAB PO SCH ×3 (09:37→20:20)
[2018-11-24] MEDS: raNITIdine SYRUP 150 MG/10 ML UDC PO SCH ×2 (09:37→21:00)
[2018-11-24] MEDS: hydroCHLOROthiazide 25 MG TAB PO SCH (09:37)
[2018-11-24] MEDS: FLUoxetine 20 MG CAP PO SCH (09:37)
[2018-11-24] MEDS: METHADONE 10 MG TAB (S0109) PO SCH (09:38)
[2018-11-24] MEDS: GABAPENTIN 100 MG CAP PO SCH ×2 (09:38→20:20)
[2018-11-24] MEDS: NICOTINE 21MG/24HR 1 EA TRANSDERMAL TD SCH (09:39)
[2018-11-24] MEDS: ACETAMINOPHEN TAB 650MG DOSE (2X325MG) PO PRN (11:57)
[2018-11-24] MEDS ORDERED: PALIPERIDONE PALMITATE 156MG/1ML INJ(INVEGA)(J2426)(FREE PSY INPT ONLY) IM ONE (12:00)
[2018-11-24 18:14] VITALS: BP 129/62
[2018-11-24] MEDS: PALIPERIDONE 6 MG ER TAB (INVEGA) PO SCH (20:20)
[2018-11-24] MEDS: diphenhydrAMINE 50 MG CAP PO PRN (20:20)
[2018-11-24] MEDS: MIRALAX *UNIT DOSE* 17GM PACKET PO PRN (20:22)
[2018-11-24] MEDS: hydrOXYzine 50 MG TAB PO PRN (23:17)
[2018-11-25] MEDS: diphenhydrAMINE 50 MG CAP PO PRN ×2 (05:44→20:44)
[2018-11-25] MEDS: IBUPROFEN 800 MG TAB PO PRN ×2 (05:44→14:12)
[2018-11-25] MEDS: MOM 30ML SUSPENSION UDC PO PRN (05:55)
[2018-11-25 06:53] VITALS: BP 124/66
[2018-11-25] MEDS: GABAPENTIN 100 MG CAP PO SCH ×2 (08:14→20:44)
[2018-11-25] MEDS: busPIRone 10 MG TAB PO SCH ×3 (08:14→20:44)
[2018-11-25] MEDS: raNITIdine SYRUP 150 MG/10 ML UDC PO SCH ×3 (08:14→21:27)
[2018-11-25] MEDS: hydroCHLOROthiazide 25 MG TAB PO SCH (08:14)
[2018-11-25] MEDS: FLUoxetine 20 MG CAP PO SCH (08:15)
[2018-11-25] MEDS: METHADONE 10 MG TAB (S0109) PO SCH (08:15)
[2018-11-25] MEDS: NICOTINE 21MG/24HR 1 EA TRANSDERMAL TD SCH (08:15)
[2018-11-25] MEDS: OLANZapine ORAL DISINTEGRATING TAB 5MG PO PRN (15:19)
[2018-11-25 17:28] VITALS: BP 154/83
[2018-11-25] MEDS: MIRALAX *UNIT DOSE* 17GM PACKET PO PRN (18:21)
[2018-11-25] MEDS: tiZANidine 4 MG TAB PO PRN (18:30)
[2018-11-25] MEDS: PALIPERIDONE 6 MG ER TAB (INVEGA) PO SCH (20:44)
[2018-11-26] MEDS: IBUPROFEN 800 MG TAB PO PRN (00:09)
[2018-11-26] MEDS: hydrOXYzine 50 MG TAB PO PRN ×2 (02:06→10:17)
[2018-11-26 06:52] VITALS: BP 132/84
[2018-11-26] MEDS: raNITIdine SYRUP 150 MG/10 ML UDC PO SCH (08:50)
[2018-11-26] MEDS: METHADONE 10 MG TAB (S0109) PO SCH (08:50)
[2018-11-26] MEDS: busPIRone 10 MG TAB PO SCH (08:51)
[2018-11-26] MEDS: hydroCHLOROthiazide 25 MG TAB PO SCH (08:51)
[2018-11-26] MEDS: GABAPENTIN 100 MG CAP PO SCH (08:51)
[2018-11-26] MEDS: FLUoxetine 20 MG CAP PO SCH (08:51)
[2018-11-26] MEDS: NICOTINE 21MG/24HR 1 EA TRANSDERMAL TD SCH (08:51)
[2018-11-26] MEDS ORDERED: FLUO20CA8 PO (08:58)
[2018-11-26] MEDS ORDERED: GABA-1171 PO ×2 (08:58)
[2018-11-26] MEDS ORDERED: HYDRO50TAB PO (08:58)
[2018-11-26] MEDS ORDERED: INVE234I IM (08:58)
[2018-11-26] MEDS ORDERED: BUSP10TA PO (08:58)
[2018-11-26] MEDS ORDERED: PALI1TAB3 PO (08:58)
--- NOTE | 2018-11-26 09:00 | MHDSPDOC ---
[facility] Discharge Summary Discharge Summary DATE OF ADMISSION: November 20, 2018 at 3:11 am DATE OF DISCHARGE: November 26, 2018 DISCHARGE DIAGNOSES: Psychosis Unspecified R/O bipolar d/o mre depressed with psychosis R/O substance induced psychosis secondary either amphetamines or cannabis or both PTSD Opioid use d/o in remission Cannabis/Amphetamine use d/o REASON FOR ADMISSION: Patient is a 38 -year-old , female, with a history of PTSD, multiple substance abuse, psychosis, bipolar d/o, last d/c [facility] 10/26/18 for psychosis who presented to ED after having just been there and d/c with c/o nausea, endorsing AH for the past 24hrs and increasing telling here people/her boyfriend were trying to poison her, boyfriend was going to harm here, she should . Denied command AH. Denied SI/HI. Pt's boyfriend was called from the ED and told them that pt is having delusions that's he's trying to poison her and that she was talking to her son earlier in the day who wasn't even present. He told the ED that he was concerned for the patient and her overall safety and ability to function. Pt in the ED endorsed poor concentration, anxiety, depression, hopelessness, helplessness. Pt stated she had taken zyprexa prior to presenting to the hospital for assessment prior admission per ED. Pt was d/c on risperidone 2mg bid for psychosis which is not noted in the ED record that pt was taking nor compliant on it. Pt also told ED that she is "prescribed" medical marijuana which is also incorrect as pt abuses marijuana she states b/c it helps her medically. She is not prescribed it. CONSULTANTS INVOLVED: pain management and medicine TREATMENT AND PROGRESS ON THE UNIT : Pt was admitted to [facility], seen for psychiatric assessment and restarted on her outpatient methadone (confirmed by [facility]) decreased to 80mg daily due to low vitals and oversedation at 120mg daily (tolerated 80mg dose well, denied withdrawal), buspar, gabapentin (increased by pain management when seen on consult) and prozac. She was started on invega 3mg bid for psychosis that she tolerated well and found beneficial so received invega sustenna 234mg im followed by invega sustenna 156mg im 3 days later, both of which she tolerated well and found beneficial for her psychosis. She was continued on invega 6mg qhs oral for AH even after invega sustenna given with resolution in AH. She was provided vistaril 50mg q6hr prn anxiety and trazodone 50mg qhs prn insomnia. Pt found her medications beneficial and tolerated them well. She attended groups daily during her stay. Her symptoms improved with treatment. On day of discharge she denied depression, anxiety, insomnia, SI/HI, hallucinations, delusions. She was discharged home after family meeting with her boyfriend with follow-up at [facility] and [facility]. She felt safe for discharge. DISCHARGE ASSESSMENT: Pt seen and states she feels "good" today and is looking forward to going home. Denies AH and paranoia and states invega sustenna is be neficial and she's tolerating it well. Denies confusion, AH/VH, delusions, not feeling real, paranoia. Denies depression, anxiety, insomnia, SI/HI hallucinations, delusions. Feels safe to be discharged home with her boyfriend. Is attending groups and finding beneficial. Psychosis is greatly improved. Slept well last night. MENTAL STATUS EXAMINATION ON DISCHARGE: General Appearance: clean, appears stated age, own clothing, other (hair is multiple colors) Build: overweight Demeanor: average Eye Contact: good Activity: appropriate, average Behavior: cooperative Speech: clear, spontaneous, normal volume, reg/rate,rhythm,volume Mood: euthymic, full, bright Mood "good" Affect: euthymic, full, bright Thought Process: logical/linear, concrete Thought Content (Delusions): Denies SI/HI, AVH Thought Content (Other): none reported Thought Content (Aggressive): none reported Perception (Hallucinations): none reported Perception (Other): none reported Cognition (Impairment of): none reported Cognition(Intelligence Est.): average Oriented: Awake, Alert, Oriented times three Insight: good Judgment: good Psychosis: none reported MEDICATIONS ON DISCHARGE: Buspar 10 mg TID PROzac 20 mg DAILY Gabapentin 100 mg QAM Gabapentin 200 mg QHS Hydroxyzine 50 mg Q6HP PRN PO ANXIETY/AGITATION Methadone 80 mg DAILY (Rx by [facility]) invega sustenna 234mg im qmonthly invega 6mg qhs PLAN/FOLLOWUP ARRANGEMENTS: d/c home with follow-up aat [facility] and [facility] The amount of time spent in the coordination of care for this patient was approximately minutes. Vital Signs/I&Os Vital Signs Date Time Temp Pulse Resp B/P (MAP) Pulse Ox O2 Delivery O2 Flow Rate FiO2 11/26/18 06:52 97.0 99 14 132/84 (100) 11/21/18 04:30 97 11/20/18 03:51 Room Air Medications Scheduled Dextroamphetamine/Amphetamine (Adderall 20 mg Tablet) 20 Mg Tablet, 20 MG PO BID, (Reported) TAKES IN MORNING AND AT NOON Fluoxetine Hcl (Fluoxetine HCl) 20 Mg Capsule, 40 MG PO DAILY, (Reported) Hydrochlorothiazide (Hydrochlorothiazide) 12.5 Mg Tablet, 12.5 MG PO DAILY, (Reported) Methadone HCl (Methadone HCl) 10 Mg/1 Ml Oral.conc, 120 MG PO DAILY, (Reported) Olanzapine (Olanzapine Odt) 10 Mg Tab.rapdis, 10 MG PO QHS, (Reported) Ranitidine HCl (Ranitidine HCl) 150 Mg Tablet, 1 TAB PO BID, (Reported) Scheduled PRN Albuterol Sulfate (Ventolin Hfa) 18 Gm Hfa.aer.ad, 2 PUFFS INH Q4H PRN for SHORTNESS OF BREATH, (Reported) Hydroxyzine HCl (Hydroxyzine HCl) 50 Mg Tablet, 50 MG PO Q8H PRN for ANXIETY, (Reported) Ibuprofen (Ibuprofen) 800 Mg Tablet, 800 MG PO Q6H PRN for PAIN, (Reported) Ondansetron HCl (Ondansetron HCl) 4 Mg Tablet, 4 MG PO Q6H PRN for NAUSEA OR VOMITING, (Reported) Allergies Coded Allergies: Penicillins (Verified Allergy, Unknown, 11/19/18) clonidine (Verified Allergy, Unknown, 11/19/18) duloxetine (Verified Allergy, Unknown, 11/19/18) latex (Verified Allergy, Unknown, 11/19/18) trazodone (Verified Allergy, Unknown, 11/19/18) ziprasidone (Verified Allergy, Unknown, 11/19/18) SIENA ALANIZ DO November 26, 2018 9:00 am
[2018-11-26] MEDS: ALBUTEROL 90 MCG/ACT 8GM HFA INHALER INH PRN (11:13)
== END 2018-11-26 11:50 | disposition home or self-care (01) | DRG 751 ==
LOC: M ED 21:32 → M ED INP 11-20 03:11 → M PSY 11-20 03:56
PROVIDERS: ADMIT Psychiatry & Neurology Psychiatry; ATTEND Psychiatry & Neurology Psychiatry
DX: F29 Unspecified psychosis not due to a substance or known physiological condition (principal); F31.5 Bipolar disorder, current episode depressed, severe, with psychotic features; I10 Essential (primary) hypertension; Z68.41 Body mass index [BMI] 40.0-44.9, adult; E66.01 Morbid (severe) obesity due to excess calories; F12.90 Cannabis use, unspecified, uncomplicated; F19.94 Other psychoactive substance use, unspecified with psychoactive substance-induced mood disorder; F15.90 Other stimulant use, unspecified, uncomplicated; Z79.899 Other long term (current) drug therapy; Z88.0 Allergy status to penicillin; Z88.8 Allergy status to other drugs, medicaments and biological substances; Z91.040 Latex allergy status; G43.909 Migraine, unspecified, not intractable, without status migrainosus; M79.7 Fibromyalgia; F17.200 Nicotine dependence, unspecified, uncomplicated; K21.9 Gastro-esophageal reflux disease without esophagitis

== ENCOUNTER 2018-12-11 12:40 | Emergency (ER) | payer MEDICAID, OTHER ==
[~2018-12-11] VITALS: Ht 162.6 cm; Wt 118.2 kg
[2018-12-11 12:40] VITALS: BP 136/90
[~2018-12-11 12:40] MED LIST changes: +IBUP1TAB7 PO; +INVE234I IM; +OLAN10TA12 PO; +ONDA4TAB5 PO; +PALI1TAB3 PO
[2018-12-11] MEDS ORDERED: METH10CO PO (12:50)
[2018-12-11 13:17] LABS: HEMATOCRIT 41.9 % (36.0-47.0); HEMOGLOBIN 12.5 g/dl (12.0-15.5); MEAN CORPUSCULAR HEMOGLOBIN 25.8 pg (27.0-33.0); MEAN CORPUSCULAR HGB CONC 29.8 g/dl (32.0-36.5); MEAN CORPUSCULAR VOLUME 86.6 fl (80.0-96.0); PLATELET COUNT, AUTOMATED 383 10^3/uL (150-450); RED BLOOD COUNT 4.84 10^6/uL (4.00-5.40); WHITE BLOOD COUNT 9.4 10^3/uL (4.0-10.0)
[2018-12-11 14:00] LABS: AMPHETAMINES LEVEL URINE POSITIVE (NEGATIVE); BARBITURATES URINE NEGATIVE (NEGATIVE); BENZODIAZEPINES URINE NEGATIVE (NEGATIVE); BLOOD UREA NITROGEN 7 MG/DL (7-18); CANNABINOIDS URINE POSITIVE (NEGATIVE); CARBON DIOXIDE LEVEL 36 MEQ/L (21-32); CHLORIDE LEVEL 100 MEQ/L (98-107); COCAINE METABOLITE URINE NEGATIVE (NEGATIVE); GLOMERULAR FILTRATION RATE > 60.0 (>58); GLUCOSE, FASTING 71 MG/DL (70-100); METHADONE URINE POSITIVE (NEGATIVE); OPIATES URINE NEGATIVE (NEGATIVE); PHENCYCLIDINE URINE NEGATIVE (NEGATIVE); POTASSIUM SERUM 3.9 MEQ/L (3.5-5.1); SODIUM LEVEL 140 MEQ/L (136-145)
[2018-12-11 14:01] LABS: ACETAMINOPHEN LEVEL < 2.0 UG/ML (10.0-30.0); ALBUMIN 3.3 GM/DL (3.2-5.2); ALT/SGPT 10 U/L (12-78); BILIRUBIN,DIRECT 0.1 MG/DL (0.0-0.2); BILIRUBIN,TOTAL 0.3 MG/DL (0.2-1.0); CALCIUM LEVEL 8.4 MG/DL (8.5-10.1); ETHYL ALCOHOL (ETHANOL) < 0.003 % (0.000-0.010); SALICYLATE LEVEL 3.2 MG/DL (5.0-30.0); TOTAL PROTEIN 6.8 GM/DL (6.4-8.2)
== END 2018-12-11 14:06 | disposition home or self-care (01) ==
LOC: M ED 12:40
DX: F25.9 Schizoaffective disorder, unspecified (principal); Z79.899 Other long term (current) drug therapy; Z88.0 Allergy status to penicillin; Z88.8 Allergy status to other drugs, medicaments and biological substances; Z91.040 Latex allergy status; F17.210 Nicotine dependence, cigarettes, uncomplicated
CPT/HCPCS: 36415; 80048; 80076; 80307; 84443; 85027; 99284; G0480

== ENCOUNTER 2018-12-11 18:05 | Emergency (ER) | payer OTHER ==
[~2018-12-11] VITALS: Ht 154.9 cm; Wt 118.2 kg
[2018-12-11 20:16] LABS: ACETAMINOPHEN LEVEL < 2.0 UG/ML (10.0-30.0); ETHYL ALCOHOL (ETHANOL) < 0.003 % (0.000-0.010); SALICYLATE LEVEL 2.8 MG/DL (5.0-30.0)
[2018-12-11 20:29] LABS: AMPHETAMINES LEVEL URINE POSITIVE (NEGATIVE); BARBITURATES URINE NEGATIVE (NEGATIVE); BENZODIAZEPINES URINE NEGATIVE (NEGATIVE); CANNABINOIDS URINE POSITIVE (NEGATIVE); COCAINE METABOLITE URINE NEGATIVE (NEGATIVE); METHADONE URINE POSITIVE (NEGATIVE); OPIATES URINE NEGATIVE (NEGATIVE); PHENCYCLIDINE URINE NEGATIVE (NEGATIVE)
--- NOTE | 2018-12-11 21:15 | ECGEPIP ---
[facility] - ED Test Date: 2018-12-11 Pat Name: HEMA DE LA CRUZ Department: Room: - Gender: Female Compatibility Test Engineer: shirley : 1980 Requested By: Arianna Perez Order Number: [id number] Reading MD: Arianna Perez Measurements Intervals [place] Rate: 80 P: 59 NV: 118 QRS: 86 QRSD: 87 T: 43 QT: 411 QTc: 477 Interpretive Statements SINUS RHYTHM WITH SINUS ARRHYTHMIA WITH SHORT NV INTERVAL SIMILAR 11/21/18 Electronically Signed on 12-11-2018 21:14:32 EDT by Arianna Perez
[2018-12-12] MEDS ORDERED: PALIPERIDONE 6 MG ER TAB (INVEGA) PO ONE
[2018-12-12] MEDS ORDERED: busPIRone 10 MG TAB PO ONE
[2018-12-12] MEDS ORDERED: GABAPENTIN 100 MG CAP PO ONE
[2018-12-12] MEDS ORDERED: hydrOXYzine 50 MG TAB PO ONE
[2018-12-12] MEDS ORDERED: raNITIdine SYRUP 150 MG/10 ML UDC PO ONE
[2018-12-12 03:55] VITALS: BP 125/69
== END 2018-12-12 03:57 | disposition short-term general hospital (02) ==
LOC: M ED 18:05
DX: F25.9 Schizoaffective disorder, unspecified (principal); Z79.899 Other long term (current) drug therapy; Z79.890 Hormone replacement therapy; Z88.0 Allergy status to penicillin; Z88.8 Allergy status to other drugs, medicaments and biological substances; Z91.040 Latex allergy status
CPT/HCPCS: 36415; 80307; 93005; 99284; G0480

== ENCOUNTER → 2019-02-15 | Outpatient (REF) | payer OTHER ==
[~2019-02-15] MED LIST changes: +METH750T2 PO; -METH75TA PO
[2019-02-15 16:09] LABS: MEAN CORPUSCULAR HEMOGLOBIN 26.2 pg (27.0-33.0); MEAN CORPUSCULAR HGB CONC 29.8 g/dl (32.0-36.5); PLATELET COUNT, AUTOMATED 233 10^3/uL (150-450); RED BLOOD COUNT 5.34 10^6/uL (4.00-5.40); WHITE BLOOD COUNT 9.6 10^3/uL (4.0-10.0)
[2019-02-15 16:24] LABS: HCG, SERUM QUALITATIVE NEGATIVE (NEGATIVE)
[2019-02-15 16:38] LABS: ALBUMIN 3.2 GM/DL (3.2-5.2); ALT/SGPT 15 U/L (12-78); BILIRUBIN,TOTAL 0.1 MG/DL (0.2-1.0); BLOOD UREA NITROGEN 9 MG/DL (7-18); CALCIUM LEVEL 8.9 MG/DL (8.5-10.1); CARBON DIOXIDE LEVEL 37 MEQ/L (21-32); CHLORIDE LEVEL 99 MEQ/L (98-107); CREATININE FOR GFR 0.93 MG/DL (0.55-1.30); GLOMERULAR FILTRATION RATE > 60.0 (>58); GLUCOSE, FASTING 101 MG/DL (70-100); NT-PRO BNP 113 PG/ML (<125); POTASSIUM SERUM 3.7 MEQ/L (3.5-5.1); PROLACTIN 43.5 NG/ML; SODIUM LEVEL 141 MEQ/L (136-145); TOTAL PROTEIN 6.7 GM/DL (6.4-8.2)
[2019-02-15 16:45] LABS: HEMOGLOBIN A1c 5.9 %
== END ==
LOC: M SFHCPLAZ 13:48
DX: N91.2 Amenorrhea, unspecified (principal); Z87.898 Personal history of other specified conditions; M79.89 Other specified soft tissue disorders

== ENCOUNTER → 2019-05-30 | Outpatient (CLI) | payer OTHER ==
[~2019-05-30] MED LIST changes: +HYDR1TAB33 PO; -HYDRO50TAB PO
[2019-05-30 14:09] LABS: HEMATOCRIT 49.3 % (36.0-47.0); HEMOGLOBIN 15.1 g/dl (12.0-15.5); MEAN CORPUSCULAR HGB CONC 30.6 g/dl (32.0-36.5); MEAN CORPUSCULAR VOLUME 88.2 fl (80.0-96.0); PLATELET COUNT, AUTOMATED 285 10^3/uL (150-450); RED BLOOD COUNT 5.59 10^6/uL (4.00-5.40)
[2019-05-30 14:38] LABS: ALBUMIN 3.3 GM/DL (3.2-5.2); ALT/SGPT 18 U/L (12-78); BILIRUBIN,TOTAL 0.2 MG/DL (0.2-1.0); BLOOD UREA NITROGEN 8 MG/DL (7-18); CALCIUM LEVEL 9.5 MG/DL (8.5-10.1); CARBON DIOXIDE LEVEL 36 MEQ/L (21-32); CHLORIDE LEVEL 99 MEQ/L (98-107); CREATININE FOR GFR 0.98 MG/DL (0.55-1.30); GLOMERULAR FILTRATION RATE > 60.0 (>58); GLUCOSE, FASTING 120 MG/DL (70-100); SODIUM LEVEL 141 MEQ/L (136-145)
[2019-05-30 14:39] LABS: HCG, SERUM QUALITATIVE NEGATIVE (NEGATIVE)
--- NOTE | 2019-05-30 14:57 | ECGEPIP ---
[facility] Test Date: 2019-05-30 Pat Name: HEMA DE LA CRUZ Department: Room: - Gender: Female Chief Librarian Circulation Department: : 1980 Requested By: Satish Schulz Order Number: [id number] Reading MD: Karime Rangel Measurements Intervals [place] Rate: 82 P: 58 IN: 132 QRS: 86 QRSD: 96 T: 42 QT: 375 QTc: 440 Interpretive Statements SINUS RHYTHM BORDERLINE RT AXIS IN LONGER C/W 12/11/18 Electronically Signed on 05-30-2019 14:57:28 EST by Karime Rangel
[2019-05-30 16:05] LABS: CHLAMYDIA DNA AMPLIFICATION NEGATIVE (NEGATIVE); GC DNA AMPLIFICATION NEGATIVE (NEGATIVE)
[2019-05-31 09:23] LABS: HEPATITIS B SURFACE ANTIGEN NEGATIVE (NEGATIVE)
[2019-05-31 09:49] LABS: HEPATITIS C VIRUS ABY INDEX 0.1 INDEX (<0.8); HIV 1&2 SCREEN CENTAUR NEGATIVE (NEGATIVE)
== END ==
LOC: M LAB 13:19
PROVIDERS: ATTEND Family Medicine
DX: F11.90 Opioid use, unspecified, uncomplicated (principal)

== ENCOUNTER → 2019-07-27 | Outpatient (CLI) | payer OTHER ==
[~2019-07-27] MED LIST changes: +FLUO20CA20 PO; -FLUO20CA8 PO; -LORA0.5T11 PO; +LORA0.5T5 PO; +ONDA-83 PO; -ONDA4TAB5 PO
--- NOTE | 2019-07-30 10:31 | SLEEPCENT ---
DATE OF STUDY: 07/27/2019 ORDERED BY: Melanie Adkins Nocturnal polysomnography was performed for evaluation of sleep physiology in this patient with a history of excessive somnolence and nonrestorative sleep who has multiple comorbidities. 8 hours and 28 minutes of data were reviewed. There were 478.5 minutes of sleep identified. Sleep latency was normal at 9.5 minutes. Rapid eye movement (REM) latency was delayed at 166 minutes. Sleep architecture was fair with 3 REM cycles. Overall sleep efficiency was 95.3%. The patient's electrocardiogram showed a sinus rhythm with an average heart rate of 72 beats per minute. Electroencephalogram (EEG) showed reasonably normal waveforms for awake and sleep. Early hypoventilatory changes prompted the addition of supplemental oxygen and despite supplemental oxygen 33 respiratory events were identified of 10 seconds in duration or greater for an apnea-hypopnea index of 5.2. The events were obstructive, not exclusive to sleep stage nor body posture. Arousals from respiratory events occurred 1.8 times per hour. Oxygen desaturations were seen into the 70s. IMPRESSION: Mild obstructive sleep apnea syndrome (G47.33). Apnea-hypopnea index 5.2. RECOMMENDATIONS: The addition of supplemental oxygen to improved the degree of oxygen desaturations identified. Nonetheless, persistence of obstructive events was seen. Pending symptoms, consideration may wish to be given to encouraging the patient to return to the sleep disorder center for pressure therapy. In the interim, alcohol and sedative avoidance should be practiced and caution exercised during the operation of motor vehicles.
== END ==
LOC: M SLEEP 20:00
PROVIDERS: ATTEND Nurse Practitioner Family
DX: R06.83 Snoring (principal)

== ENCOUNTER → 2019-08-17 | Outpatient (CLI) | payer OTHER ==
--- NOTE | 2019-08-17 13:16 | REP ---
PA and lateral chest: Comparison is 10/31/2018. There are horizontal linear densities in the right middle lobe and right lower lobe as an interval change. This could represent discoid atelectasis or parenchymal scarring. Lung dave otherwise clear and unchanged. There is chronic elevation of the right hemidiaphragm, unchanged. Cardiac size is normal. The nicolas, mediastinum, skeletal structures are unremarkable. Impression: Discoid atelectasis versus parenchymal scars in the right middle lobe and right lower lobe as a change from the comparison study. Chronic elevation of the right hemidiaphragm. The Electronically Signed by Satish Coyne MD 08/17/2019 01:07 P
== END ==
LOC: M RAD 12:43
PROVIDERS: ATTEND Nurse Practitioner Family
DX: G47.33 Obstructive sleep apnea (adult) (pediatric) (principal)

== ENCOUNTER → 2019-09-07 | Outpatient (CLI) | payer OTHER ==
[~2019-09-07] MED LIST changes: -FLUO20CA19 PO; +FLUO20CA22 PO
== END ==
LOC: M SLEEP 20:00
PROVIDERS: ATTEND Nurse Practitioner Family
DX: G47.33 Obstructive sleep apnea (adult) (pediatric) (principal)

== ENCOUNTER → 2019-11-26 | Outpatient (CLI) | payer OTHER ==
--- NOTE | 2019-11-26 15:48 | REP ---
CHEST FLUOROSCOPY SNIFF TEST: Real-time fluoroscopic imaging is performed of the diaphragms during deep inspiration and expiration. Prior chest radiographs of 08/17/2019 show moderate elevation of the right hemidiaphragm with atelectatic changes in the right lung base. There is adequate excursion of the left hemidiaphragm inferiorly with deep inspiration. There is decreased inferior excursion of the right hemidiaphragm with inspiration. There is no paradoxical motion. Right hemidiaphragm does not appear completely paralyzed. IMPRESSION: Compromised excursion inferiorly of the right hemidiaphragm with inspiration without complete paralysis. 23 minutes of fluoroscopy time utilized. Electronically Signed by Satish Diaz MD 11/26/2019 04:05 P
--- NOTE | 2019-11-27 04:07 | REP ---
Clinical: Chest pain. Dyspnea. Technique: Axial noncontrast images from the thoracic inlet to the upper abdomen with coronal and sagittal re-formations. Findings: Elevation to the right hemidiaphragm with linear plate-like fibro atelectatic changes involving the right lower lobe noted. Aerated lung dave are essentially clear and without consolidation, obvious significant nodule or mass. No pleural effusion. No pneumothorax. Tracheobronchial tree is patent. The mediastinum demonstrates normal thoracic aorta, pulmonary vasculature and heart/pericardium. No adenopathy. Surrounding musculoskeletal structures are intact. Limited upper abdomen demonstrates normal bilateral adrenal glands and evidence of prior cholecystectomy. Impression: Chronic elevation to the right hemidiaphragm with associated right lower lobe fibro atelectatic changes. No further acute mediastinal or pleuroparenchymal process appreciated. Electronically Signed by Gurdeep Ramos MD 11/27/2019 03:58 A
== END ==
LOC: M RAD 12:34
PROVIDERS: ATTEND Nurse Practitioner Family
DX: R06.00 Dyspnea, unspecified (principal)

== ENCOUNTER → 2020-01-23 | Outpatient (REF) | payer OTHER ==
[~2020-01-23] MED LIST changes: +MAPA500C PO; +METH10TA2 PO; +PROP20TA72; +VITA200015; +ZYPR15TA3 PO
[2020-01-23 16:18] LABS: ALBUMIN 3.2 GM/DL (3.2-5.2); ALT/SGPT 21 U/L (12-78); BILIRUBIN,TOTAL 0.3 MG/DL (0.2-1.0); BLOOD UREA NITROGEN 5 MG/DL (7-18); CARBON DIOXIDE LEVEL 36 MEQ/L (21-32); CHLORIDE LEVEL 100 MEQ/L (98-107); CHOLESTEROL LEVEL 167 MG/DL (<200); CHOLESTEROL RISK RATIO 4.513 (<5); CREATININE FOR GFR 0.75 MG/DL (0.55-1.30); GLOMERULAR FILTRATION RATE > 60.0 (>58); GLUCOSE, FASTING 62 MG/DL (70-100); HDL CHOLESTEROL 37 MG/DL (>40); LDL CHOLESTEROL 98 MG/DL (<100); NON-HDL-C 130 MG/DL; POTASSIUM SERUM 4.1 MEQ/L (3.5-5.1); SODIUM LEVEL 138 MEQ/L (136-145); TOTAL PROTEIN 6.7 GM/DL (6.4-8.2); TRIGLYCERIDES LEVEL 160 MG/DL (<150)
== END ==
LOC: M SFHCPLAZ 13:55
DX: Z68.41 Body mass index [BMI] 40.0-44.9, adult (principal)

== ENCOUNTER 2020-04-22 14:20 | Emergency (ER) | payer OTHER ==
[~2020-04-22] VITALS: Ht 162.6 cm; Wt 133.7 kg
[~2020-04-22 14:20] MED LIST changes: -MAPA500C PO; -METH10TA2 PO; -PROP20TA72; -VITA200015; -ZYPR15TA3 PO
[2020-04-22] MEDS ORDERED: METH10TA2 PO (14:29)
[2020-04-22] MEDS ORDERED: ZYPR15TA3 PO (14:50)
[2020-04-22 15:41] VITALS: BP 168/97
--- NOTE | 2020-04-22 18:36 | ECGEPIP ---
[facility] - ED Test Date: 2020-04-22 Pat Name: HEMA DE LA CRUZ Department: Room: - Gender: Female Lang Path Therapist: kg : 1980 Requested By: FEROZ MACIEL PA-C. Order Number: [id number] Reading MD: Arianna Perez Measurements Intervals [place] Rate: 81 P: 68 ND: 129 QRS: 97 QRSD: 88 T: 43 QT: 387 QTc: 451 Interpretive Statements SINUS RHYTHM BORDERLINE RIGHT AXIS DEVIATION SIMILAR 05/30/19 Electronically Signed on 04-22-2020 18:35:53 EDT by Arianna Perez
[2020-04-23] MEDS ORDERED: PROP20TA72 (11:55)
[2020-04-23] MEDS ORDERED: VITA200015 (11:55)
[2020-04-23] MEDS ORDERED: MAPA500C PO (17:05)
== END 2020-04-22 15:45 | disposition home or self-care (01) ==
LOC: M ED 14:20
DX: I10 Essential (primary) hypertension (principal); M79.7 Fibromyalgia; F90.9 Attention-deficit hyperactivity disorder, unspecified type; F43.10 Post-traumatic stress disorder, unspecified; F41.9 Anxiety disorder, unspecified; F17.200 Nicotine dependence, unspecified, uncomplicated; Z79.891 Long term (current) use of opiate analgesic; Z79.51 Long term (current) use of inhaled steroids; Z79.899 Other long term (current) drug therapy; Z88.0 Allergy status to penicillin; Z88.6 Allergy status to analgesic agent; Z88.8 Allergy status to other drugs, medicaments and biological substances; Z91.040 Latex allergy status

== ENCOUNTER 2020-04-23 11:45 | Emergency (ER) | payer OTHER ==
[~2020-04-23] VITALS: Ht 162.6 cm; Wt 132.9 kg
[~2020-04-23 11:45] MED LIST changes: +METH10TA2 PO; +ZYPR15TA3 PO
[2020-04-23] MEDS ORDERED: PROP20TA72 (11:55)
[2020-04-23] MEDS ORDERED: VITA200015 (11:55)
[2020-04-23 13:16] VITALS: BP 132/82
[2020-04-23] MEDS ORDERED: MAPA500C PO (17:05)
== END 2020-04-23 13:18 | disposition home or self-care (01) ==
LOC: M ED 11:45
DX: I10 Essential (primary) hypertension (principal); F41.9 Anxiety disorder, unspecified; Z79.51 Long term (current) use of inhaled steroids; Z79.891 Long term (current) use of opiate analgesic; Z79.899 Other long term (current) drug therapy; Z88.8 Allergy status to other drugs, medicaments and biological substances; Z88.0 Allergy status to penicillin; Z91.040 Latex allergy status

== ENCOUNTER 2020-04-23 16:57 | Emergency (ER) | payer OTHER ==
[~2020-04-23] VITALS: Ht 162.6 cm; Wt 133.3 kg
[~2020-04-23 16:57] MED LIST changes: +PROP20TA72; +VITA200015
[2020-04-23] MEDS ORDERED: MAPA500C PO (17:05)
[2020-04-23] MEDS ORDERED: ONDANSETRON 4 MG ORAL DISINTEGRATING TAB PO ONE (19:00)
[2020-04-23] MEDS ORDERED: KETOROLAC TROMETHAMINE 10 MG TAB PO ONE (19:00)
[2020-04-23 19:10] LABS: BASO # 0.1 10^3/uL (0.0-0.2); BASO % 0.5 % (0.0-1.0); EOS # 0.1 10^3/uL (0.0-0.5); EOS % 0.9 % (0.0-3.0); HEMATOCRIT 47.2 % (36.0-47.0); LYMPH # 2.7 10^3/uL (1.5-5.0); LYMPH % 19.4 % (24.0-44.0); MEAN CORPUSCULAR HEMOGLOBIN 26.7 pg (27.0-33.0); MEAN CORPUSCULAR HGB CONC 29.7 g/dl (32.0-36.5); MEAN CORPUSCULAR VOLUME 90.1 fl (80.0-96.0); MONO # 0.8 10^3/uL (0.0-0.8); NEUTROPHILS # 9.9 10^3/uL (1.5-8.5); NEUTROPHILS % 72.8 % (36.0-66.0); PLATELET COUNT, AUTOMATED 295 10^3/uL (150-450); RED BLOOD COUNT 5.24 10^6/uL (4.00-5.40); WHITE BLOOD COUNT 13.6 10^3/uL (4.0-10.0)
[2020-04-23 19:47] LABS: FREE T4 1.14 NG/DL (0.76-1.46); MAGNESIUM LEVEL 2.2 MG/DL (1.8-2.4); THYROID STIMULATING HORMONE 1.02 uIU/ML (0.358-3.740)
--- NOTE | 2020-04-23 20:09 | REPVR ---
PROCEDURE INFORMATION: Exam: CT Head Without Contrast Exam date and time: 04/23/2020 7:32 PM Age: 39 years old Clinical indication: Pain; Headache; Additional info: New onset headache TECHNIQUE: Imaging protocol: Computed tomography of the head without contrast. Radiation optimization: All CT scans at this facility use at least one of these dose optimization techniques: automated exposure control; mA and/or kV adjustment per patient size (includes targeted exams where dose is matched to clinical indication); or iterative reconstruction. COMPARISON: CT Head without contrast 10/26/2018 11:46 AM FINDINGS: Brain: The white-rea differentiation is preserved demonstrating no acute territorial type infarct. No acute intracranial hemorrhage is visualized. No intracranial mass effect. There is no midline shift. Artifact limits evaluation of the jeison. Cerebral ventricles: No ventriculomegaly. Bones/joints: The calvarium demonstrates no evidence for a depressed fracture. A subcentimeter hypodense lesion is identified within the left frontal skull, nonspecific as to etiology but stable compared to the previous exam. Paranasal sinuses: Visualized sinuses are unremarkable. No fluid levels. Mastoid air cells: No mastoid effusion. Soft tissues: Unremarkable. IMPRESSION: 1. No acute intracranial abnormality. 2. Additional findings described above. Electronically signed by: Bob Crook On 04/23/2020 20:09:18 PM
[2020-04-23 20:30] VITALS: BP 141/86
== END 2020-04-23 20:40 | disposition home or self-care (01) ==
LOC: M ED 16:57
DX: R51.9 Headache, unspecified (principal); I10 Essential (primary) hypertension; E78.5 Hyperlipidemia, unspecified; J45.909 Unspecified asthma, uncomplicated; M79.7 Fibromyalgia; F17.200 Nicotine dependence, unspecified, uncomplicated; F43.10 Post-traumatic stress disorder, unspecified; F60.9 Personality disorder, unspecified; Z79.51 Long term (current) use of inhaled steroids; Z79.891 Long term (current) use of opiate analgesic; Z79.899 Other long term (current) drug therapy; Z88.8 Allergy status to other drugs, medicaments and biological substances; Z88.6 Allergy status to analgesic agent; Z91.040 Latex allergy status
CPT/HCPCS: 36415; 70450; 80047; 83735; 84439; 84443; 84702; 85025; 99283; Q0162

== ENCOUNTER → 2020-05-26 | Outpatient (CLI) | payer OTHER ==
[~2020-05-26] MED LIST changes: +MAPA500C PO
[2020-05-26 13:13] LABS: HEMATOCRIT 46.5 % (36.0-47.0); MEAN CORPUSCULAR HEMOGLOBIN 27.2 pg (27.0-33.0); MEAN CORPUSCULAR HGB CONC 30.1 g/dl (32.0-36.5); MEAN CORPUSCULAR VOLUME 90.5 fl (80.0-96.0); PLATELET COUNT, AUTOMATED 273 10^3/uL (150-450); RED BLOOD COUNT 5.14 10^6/uL (4.00-5.40); WHITE BLOOD COUNT 13.1 10^3/uL (4.0-10.0)
[2020-05-26 13:39] LABS: ALBUMIN 3.2 GM/DL (3.2-5.2); ALT/SGPT 18 U/L (12-78); BILIRUBIN,TOTAL 0.3 MG/DL (0.2-1.0); BLOOD UREA NITROGEN 10 MG/DL (7-18); CARBON DIOXIDE LEVEL 36 MEQ/L (21-32); CHLORIDE LEVEL 99 MEQ/L (98-107); CREATININE FOR GFR 1.02 MG/DL (0.55-1.30); GLOMERULAR FILTRATION RATE > 60.0 (>58); GLUCOSE, FASTING 89 MG/DL (70-100); IRON (FE) 32 UG/DL (50-170); POTASSIUM SERUM 4.6 MEQ/L (3.5-5.1); SODIUM LEVEL 139 MEQ/L (136-145)
[2020-05-26 13:40] LABS: FREE T4 0.91 NG/DL (0.76-1.46); PERCENT SATURATION 8.6 % (13.2-45.0); TOTAL IRON BINDING CAPACITY 372 UG/DL (250-450)
== END ==
LOC: M LAB 12:25
PROVIDERS: ATTEND Internal Medicine
DX: R00.2 Palpitations (principal)

== ENCOUNTER → 2020-09-08 | Outpatient (CLI) | payer OTHER ==
[~2020-09-08] MED LIST changes: +GABA-282 PO; -GABA-843 PO; -LISI-538 PO; +LISI20TA33 PO; +METH-1165 PO; -METH750T2 PO
--- NOTE | 2020-09-08 15:08 | REPMRS ---
Patient History The patient states she has not had a clinical breast exam in over a year. Baseline Mammogram Patient had first child at age 31. Family history of breast cancer under age 50 , ovarian cancer at age 42, and endometrial cancer at age 42 in mother, breast cancer in paternal aunt, breast cancer in paternal aunt. Digital Woman Screen Mammo: September 08, 2020 - Exam #: [id number] Bilateral CC and MLO view(s) were taken. Technologist: Nancy Hess, Technologist No prior studies available for comparison. FINDINGS: The breast tissue is almost entirely fat. The Volpara volumetric breast density category is: A. There is no evidence of dominant mass, architectural distortion, or grouped microcalcification typical of malignancy. 3-D tomosynthesis shows no additional findings. Assessment: BI-RADS/ACR category 1 mammogram. Negative Mammogram. Recommendation Breast MRI of both breasts in 6 months. Routine screening mammogram of both breasts in 1 year (for women over age 40). This patient's [facility] Lifetime Breast Cancer RIsk is estimated at 43.8 %. Annual screening Breast MRI scanniing is recommended for patient's whose lifetime risk assessment is over 20%. This mammogram was interpreted with the aid of an FDA-approved computer-aided dectection system. Electronically Signed By: Silas Cook MD 09/08/20 0092
== END ==
LOC: M WHC 13:00
PROVIDERS: ATTEND Internal Medicine
DX: Z12.31 Encounter for screening mammogram for malignant neoplasm of breast (principal); Z80.3 Family history of malignant neoplasm of breast; Z80.49 Family history of malignant neoplasm of other genital organs; Z80.41 Family history of malignant neoplasm of ovary

== ENCOUNTER → 2020-09-08 | Outpatient (REF) | payer OTHER | LOC: M SFHCWAGY 19:14 | PROVIDERS: ATTEND Obstetrics & Gynecology | DX: Z12.4 Encounter for screening for malignant neoplasm of cervix (principal) ==

== ENCOUNTER → 2020-09-08 | Outpatient (REF) | payer OTHER | LOC: M PLALAB 16:03 | PROVIDERS: ATTEND Obstetrics & Gynecology | DX: Z12.4 Encounter for screening for malignant neoplasm of cervix (principal) ==

== ENCOUNTER → 2020-10-13 | Outpatient (CLI) | payer OTHER ==
[2020-10-13 12:09] LABS: HEMATOCRIT 47.3 % (36.0-47.0); HEMOGLOBIN 14.1 g/dl (12.0-15.5); MEAN CORPUSCULAR HGB CONC 29.8 g/dl (32.0-36.5); PLATELET COUNT, AUTOMATED 271 10^3/uL (150-450); RED BLOOD COUNT 5.03 10^6/uL (4.00-5.40); WHITE BLOOD COUNT 10.4 10^3/uL (4.0-10.0)
[2020-10-13 12:35] LABS: PERCENT SATURATION 10.4 % (13.2-45.0)
[2020-10-13 15:48] LABS: BASO # 0.1 10^3/uL (0.0-0.2); BASO % 0.7 % (0.0-1.0); EOS # 0.2 10^3/uL (0.0-0.5); EOS % 1.5 % (0.0-3.0); LYMPH # 1.9 10^3/uL (1.5-5.0); LYMPH % 17.5 % (24.0-44.0); MONO # 0.7 10^3/uL (0.0-0.8); MONO % 6.3 % (2.0-8.0); NEUTROPHILS # 7.9 10^3/uL (1.5-8.5); NEUTROPHILS % 73.6 % (36.0-66.0)
== END ==
LOC: M LAB 11:08
PROVIDERS: ATTEND Internal Medicine
DX: D50.9 Iron deficiency anemia, unspecified (principal)

== ENCOUNTER 2020-10-29 09:28 | Emergency (ER) | payer OTHER ==
[~2020-10-29] VITALS: Ht 165.1 cm; Wt 136.4 kg
[2020-10-29 09:29] VITALS: BP 125/80
[2020-10-29] MEDS ORDERED: LISI-898 (09:36)
[2020-10-29] MEDS ORDERED: CETI-24 (09:36)
[2020-10-29] MEDS ORDERED: LEVA1.2519 (09:36)
[2020-10-29] MEDS ORDERED: DOXY100C (09:36)
[2020-10-29] MEDS ORDERED: FERR325T3 (09:36)
== END 2020-10-29 10:50 | disposition home or self-care (01) ==
LOC: M ED 09:28
DX: I83.891 Varicose veins of right lower extremity with other complications (principal); J45.909 Unspecified asthma, uncomplicated; G43.909 Migraine, unspecified, not intractable, without status migrainosus; K21.9 Gastro-esophageal reflux disease without esophagitis; Z79.899 Other long term (current) drug therapy; Z79.890 Hormone replacement therapy; Z88.0 Allergy status to penicillin; Z88.5 Allergy status to narcotic agent; Z88.8 Allergy status to other drugs, medicaments and biological substances; Z91.040 Latex allergy status; F17.210 Nicotine dependence, cigarettes, uncomplicated

== ENCOUNTER → 2020-11-03 | Outpatient (CLI) | payer OTHER ==
[~2020-11-03] MED LIST changes: +CETI-24; +DOXY100C; +FERR325T3; +LEVA1.2519; +LISI-898
[2020-11-03 12:35] LABS: HEMOGLOBIN 14.4 g/dl (12.0-15.5); MEAN CORPUSCULAR HGB CONC 29.4 g/dl (32.0-36.5); MEAN CORPUSCULAR VOLUME 95.1 fl (80.0-96.0); PLATELET COUNT, AUTOMATED 295 10^3/uL (150-450); RED BLOOD COUNT 5.15 10^6/uL (4.00-5.40); WHITE BLOOD COUNT 10.6 10^3/uL (4.0-10.0)
[2020-11-03 13:10] LABS: ALBUMIN 3.2 GM/DL (3.2-5.2); ALT/SGPT 16 U/L (12-78); BILIRUBIN,TOTAL 0.3 MG/DL (0.2-1.0); BLOOD UREA NITROGEN 8 MG/DL (7-18); CALCIUM LEVEL 8.4 MG/DL (8.5-10.1); CARBON DIOXIDE LEVEL 37 MEQ/L (21-32); CHLORIDE LEVEL 99 MEQ/L (98-107); CREATININE FOR GFR 0.92 MG/DL (0.55-1.30); GLOMERULAR FILTRATION RATE > 60.0 (>58); GLUCOSE, FASTING 143 MG/DL (70-100); POTASSIUM SERUM 4.4 MEQ/L (3.5-5.1); SODIUM LEVEL 138 MEQ/L (136-145)
[2020-11-03 13:24] LABS: HEPATITIS B SURFACE ANTIGEN NEGATIVE (NEGATIVE)
[2020-11-03 13:52] LABS: HEPATITIS C VIRUS ABY INDEX < 0.0 INDEX (<0.8)
[2020-11-03 17:12] LABS: HCG, SERUM QUALITATIVE NEGATIVE (NEGATIVE)
--- NOTE | 2020-11-03 20:36 | ECGEPIP ---
[facility] Test Date: 2020-11-03 Pat Name: HEMA DE LA CRUZ Department: Room: - Gender: Female Live Hanger: shaan : 1980 Requested By: Satish Schulz Order Number: [id number] Reading MD: Radha Mancuso Measurements Intervals [place] Rate: 111 P: 71 [place]: 108 QRS: 87 QRSD: 82 T: 55 QT: 336 QTc: 456 Interpretive Statements SINUS TACHYCARDIA SIMILAR TO 04/22/20 BUT FOR FASTER HR Electronically Signed on 11-03-2020 20:35:57 EDT by Radha Mancuso
[2020-11-05 23:07] LABS: HEPATITIS C QUANTITATION HCV Not Detected IU/mL (.)
== END ==
LOC: M LAB 11:06
PROVIDERS: ATTEND Family Medicine
DX: F11.20 Opioid dependence, uncomplicated (principal)

== ENCOUNTER 2021-02-17 03:31 | Emergency (ER) | payer OTHER ==
[~2021-02-17] VITALS: Ht 165.1 cm; Wt 122.7 kg
[~2021-02-17 03:31] MED LIST changes: -CETI-24; +CETI-24 PO; -DOXY100C; +DOXY100C3; -FERR325T3; +FERR325T3 PO; +FLUO-96 PO; -FLUO20CA20 PO; +GABA-283 PO; -GABA-845 PO; -LEVA1.2519; +LEVA1.2519 NEB; -LISI-898; +LISI5TAB11 PO; +METH-1177 PO; -METH10TA2 PO; +POTA-151; -POTA20TA6
[2021-02-17] MEDS ORDERED: SENN1TAB96 PO (04:04)
[2021-02-17] MEDS ORDERED: OMEP40CA5 (04:04)
[2021-02-17 07:01] LABS: BASO # 0.1 10^3/uL (0.0-0.2); BASO % 0.3 % (0.0-1.0); EOS # 0.1 10^3/uL (0.0-0.5); EOS % 0.5 % (0.0-3.0); HEMOGLOBIN 16.1 g/dl (12.0-15.5); LYMPH # 0.9 10^3/uL (1.5-5.0); LYMPH % 5.2 % (24.0-44.0); MEAN CORPUSCULAR HEMOGLOBIN 25.9 pg (27.0-33.0); MEAN CORPUSCULAR HGB CONC 29.8 g/dl (32.0-36.5); MONO # 0.8 10^3/uL (0.0-0.8); MONO % 4.6 % (2.0-8.0); NEUTROPHILS # 15.7 10^3/uL (1.5-8.5); NEUTROPHILS % 88.9 % (36.0-66.0); PLATELET COUNT, AUTOMATED 303 10^3/uL (150-450); RED BLOOD COUNT 6.21 10^6/uL (4.00-5.40); WHITE BLOOD COUNT 17.6 10^3/uL (4.0-10.0)
[2021-02-17] MEDS ORDERED: METOCLOPRAMIDE INJ 10MG/2ML VIAL (J2765 PER 1) IV ONE (07:05)
[2021-02-17] MEDS ORDERED: NS 1,000 ML IV ONE (07:05)
[2021-02-17 07:28] LABS: HCG, SERUM QUALITATIVE NEGATIVE (NEGATIVE)
[2021-02-17 07:32] LABS: ALBUMIN 3.5 GM/DL (3.2-5.2); ALT/SGPT 24 U/L (12-78); BILIRUBIN,DIRECT 0.2 MG/DL (0.0-0.2); BILIRUBIN,TOTAL 0.7 MG/DL (0.2-1.0); BLOOD UREA NITROGEN 11 MG/DL (7-18); CALCIUM LEVEL 9.2 MG/DL (8.5-10.1); CARBON DIOXIDE LEVEL 34 MEQ/L (21-32); CHLORIDE LEVEL 100 MEQ/L (98-107); CK-MB VALUE MASS < 1.0 NG/ML (<3.6); CPK CREATINE PHOSPHOKINASE 82 U/L (26-192); CREATININE FOR GFR 0.81 MG/DL (0.55-1.30); GLOMERULAR FILTRATION RATE > 60.0 (>58); GLUCOSE, FASTING 149 MG/DL (70-100); LIPASE 113 U/L (73-393); MB/CK RELATIVE INDEX 1.22 (< OR =4); POTASSIUM SERUM 4.4 MEQ/L (3.5-5.1); SODIUM LEVEL 140 MEQ/L (136-145); TOTAL PROTEIN 7.4 GM/DL (6.4-8.2); TROPONIN I < 0.02 NG/ML (< 0.10)
[2021-02-17] MEDS ORDERED: ISOVUE-370 76% 100ML VIAL As Ordered ONE (07:59)
[2021-02-17] MEDS ORDERED: BACI500O21 TOP (10:22)
[2021-02-17] MEDS ORDERED: PROT1TAB2 PO (10:22)
[2021-02-17] MEDS ORDERED: CARA1TAB6 PO (10:22)
[2021-02-17 10:51] VITALS: BP 128/78
== END 2021-02-17 10:54 | disposition home or self-care (01) ==
LOC: M ED 03:31
DX: K29.70 Gastritis, unspecified, without bleeding (principal); I10 Essential (primary) hypertension; M79.7 Fibromyalgia; G43.909 Migraine, unspecified, not intractable, without status migrainosus; K58.9 Irritable bowel syndrome, unspecified; F15.11 Other stimulant abuse, in remission; Z79.899 Other long term (current) drug therapy; Z88.0 Allergy status to penicillin; Z88.8 Allergy status to other drugs, medicaments and biological substances; Z91.040 Latex allergy status; F17.210 Nicotine dependence, cigarettes, uncomplicated
CPT/HCPCS: 74177; 80048; 80076; 81001; 82550; 82553; 83690; 84703; 85025; 93005; 96361; 96374; 99284; J2765; Q9967

== ENCOUNTER 2021-02-26 16:58 | Observation (INO) | payer OTHER ==
[~2021-02-26] VITALS: Ht 165.1 cm; Wt 128.9 kg
[~2021-02-26 16:58] MED LIST changes: +BACI500O21 TOP; +CARA1TAB6 PO; -FLUO-96 PO; +FLUO20CA20 PO; +LISI-898 PO; -LISI5TAB11 PO; +OMEP-221; -POTA-151; +POTA20TA6; +PROT1TAB2 PO; +SENN1TAB96 PO
[2021-02-26 22:31] LABS: BASO % 0.4 % (0.0-1.0); EOS # 0.1 10^3/uL (0.0-0.5); EOS % 1.1 % (0.0-3.0); HEMATOCRIT 49.9 % (36.0-47.0); HEMOGLOBIN 14.9 g/dl (12.0-15.5); LYMPH # 2.7 10^3/uL (1.5-5.0); LYMPH % 24.6 % (24.0-44.0); MEAN CORPUSCULAR HEMOGLOBIN 26.2 pg (27.0-33.0); MEAN CORPUSCULAR HGB CONC 29.9 g/dl (32.0-36.5); MEAN CORPUSCULAR VOLUME 87.9 fl (80.0-96.0); MONO # 0.6 10^3/uL (0.0-0.8); MONO % 5.8 % (2.0-8.0); NEUTROPHILS # 7.4 10^3/uL (1.5-8.5); NEUTROPHILS % 67.7 % (36.0-66.0); PLATELET COUNT, AUTOMATED 312 10^3/uL (150-450); RED BLOOD COUNT 5.68 10^6/uL (4.00-5.40); WHITE BLOOD COUNT 10.9 10^3/uL (4.0-10.0)
[2021-02-26 22:32] LABS: APPEARANCE, URINE CLEAR (CLEAR); BACTERIA, URINE AUTO NEGATIVE (NEGATIVE); BILIRUBIN, URINE AUTO NEGATIVE (NEGATIVE); BLOOD, URINE BLOOD NEGATIVE (NEGATIVE); COLOR, URINE STRAW (YELLOW); GLUCOSE, URINE (UA) AUTO NEGATIVE (NEGATIVE); KETONE, URINE AUTO NEGATIVE (NEGATIVE); LEUKOCYTE ESTERASE, URINE AUTO NEGATIVE (NEGATIVE); NITRITE, URINE AUTO NEGATIVE (NEGATIVE); PROTEIN, URINE AUTO NEGATIVE (NEGATIVE); RBC, URINE AUTO 1 /HPF (0-3); SPECIFIC GRAVITY URINE AUTO 1.003 (1.002-1.035); SQUAMOUS EPITHELIAL CELL UR AU 4 /HPF (0-6); UROBILINOGEN, URINE AUTO 0.2 mg/dL (0.0-2.0); WBC, URINE AUTO 1 /HPF (0-3)
[2021-02-26 22:42] LABS: INR 1.09; PROTHROMBIN TIME 14.5 SECONDS (12.7-14.5)
[2021-02-26 22:43] LABS: PARTIAL THROMBOPLASTIN TIME 33.2 SECONDS (25.9-37.0)
[2021-02-26 22:46] LABS: D-DIMER QUANT < 270 ng/ml (<500)
[2021-02-26 22:59] LABS: ALBUMIN 3.5 GM/DL (3.2-5.2); ALT/SGPT 20 U/L (12-78); BILIRUBIN,DIRECT 0.1 MG/DL (0.0-0.2); BILIRUBIN,TOTAL 0.4 MG/DL (0.2-1.0); BLOOD UREA NITROGEN 5 MG/DL (7-18); CARBON DIOXIDE LEVEL 36 MEQ/L (21-32); CHLORIDE LEVEL 101 MEQ/L (98-107); CK-MB VALUE MASS < 1.0 NG/ML (<3.6); CPK CREATINE PHOSPHOKINASE 59 U/L (26-192); CREATININE FOR GFR 0.75 MG/DL (0.55-1.30); FREE T4 1.29 NG/DL (0.76-1.46); GLOMERULAR FILTRATION RATE > 60.0 (>58); GLUCOSE, FASTING 69 MG/DL (70-100); MAGNESIUM LEVEL 2.1 MG/DL (1.8-2.4); MB/CK RELATIVE INDEX 1.69 (< OR =4); SODIUM LEVEL 141 MEQ/L (136-145); TROPONIN I < 0.02 NG/ML (< 0.10)
[2021-02-26] MEDS ORDERED: ISOVUE-370 76% 100ML VIAL As Ordered ONE (23:00)
--- NOTE | 2021-02-26 23:55 | REPVR ---
PROCEDURE INFORMATION: Exam: CT Head Without Contrast Exam date and time: 02/26/2021 9:08 PM Age: 40 years old Clinical indication: Dizziness; Additional info: Syncope TECHNIQUE: Imaging protocol: Computed tomography of the head without contrast. Radiation optimization: All CT scans at this facility use at least one of these dose optimization techniques: automated exposure control; mA and/or kV adjustment per patient size (includes targeted exams where dose is matched to clinical indication); or iterative reconstruction. COMPARISON: CT Head without contrast 04/23/2020 7:26 PM FINDINGS: There are no intra-or extra-axial hemorrhages or fluid collections. There is no mass effect or midline shift. Ventricles are nondilated for age. There are no focal parenchymal abnormalities. No calvarial fractures. IMPRESSION: No acute intracranial process. No intracranial hemorrhage. Electronically signed by: Jos Denise On 02/26/2021 23:54:50 PM
[2021-02-27] VITALS (10 sets, daily range): BP systolic 117–136; BP diastolic 60–77; O2SAT 88–93
--- NOTE | 2021-02-27 00:03 | REPVR ---
PROCEDURE INFORMATION: Exam: CTA Chest With Contrast Exam date and time: 02/26/2021 10:20 PM Age: 40 years old Clinical indication: Other: Low sats TECHNIQUE: Imaging protocol: Computed tomographic angiography of the chest with contrast. 3D rendering (Not supervised by radiologist): MIP and/or 3D reconstructed images were created by the technologist. Radiation optimization: All CT scans at this facility use at least one of these dose optimization techniques: automated exposure control; mA and/or kV adjustment per patient size (includes targeted exams where dose is matched to clinical indication); or iterative reconstruction. Contrast material: ISO; Contrast volume: 75 ml; Contrast route: INTRAVENOUS (IV); COMPARISON: 1. CT Chest without contrast 2019-11-26 12:57 2. XA Chest Fluoro Sniff Test 2019-11-26 12:47 FINDINGS: Limitations: Limited by patient's body habitus. Pulmonary arteries: Suboptimal pulmonary artery contrast concentration for pulmonary emboli evaluation. No main or segmental central pulmonary emboli. Nondiagnostic for more peripheral pulmonary branches. Aorta: Unremarkable. No aortic aneurysm. No aortic dissection. Lungs: Scattered subsegmental atelectasis. Hypoexpanded lungs. Pleural spaces: Unremarkable. No pneumothorax. No pleural effusion. Heart: Unremarkable. No cardiomegaly. No pericardial effusion. Lymph nodes: Unremarkable. No enlarged lymph nodes. Liver: Enlarged low attenuating liver, evidence of hepatic steatosis. Gallbladder and bile ducts: Cholecystectomy clips in the right upper quadrant. Bones/joints: Unremarkable. No acute fracture. Soft tissues: Unremarkable. IMPRESSION: 1. Suboptimal pulmonary artery contrast concentration for pulmonary emboli evaluation. No main or segmental central pulmonary emboli. Nondiagnostic for more peripheral pulmonary branches. 2. Scattered subsegmental atelectasis. Hypoexpanded lungs. Electronically signed by: Nikolay Soares On 02/27/2021 00:03:16 AM
[2021-02-27 00:52] LABS: RSV AMPLIFICATION NEGATIVE (NEGATIVE)
[2021-02-27] MEDS ORDERED: ALBUTEROL SULFATE 2.5 MG/0.5 ML INH NEB SOLN NEB ONE (01:30)
[2021-02-27] MEDS: LEVALBUTEROL 1.25 MG/0.5 ML CONCENTRATE NEB NEB SCH ×4 (02:00→21:27)
[2021-02-27] MEDS: IPRATROPIUM 0.02% SOLN 0.5MG 2.5ML NEB NEB SCH ×4 (02:00→21:27)
[2021-02-27 02:47] LABS: AMPHETAMINES LEVEL URINE NEGATIVE (NEGATIVE); BARBITURATES URINE NEGATIVE (NEGATIVE); BENZODIAZEPINES URINE NEGATIVE (NEGATIVE); CANNABINOIDS URINE POSITIVE (NEGATIVE); COCAINE METABOLITE URINE NEGATIVE (NEGATIVE); METHADONE URINE POSITIVE (NEGATIVE); OPIATES URINE NEGATIVE (NEGATIVE); PHENCYCLIDINE URINE NEGATIVE (NEGATIVE)
[2021-02-27] MEDS ORDERED: ACETAMINOPHEN TAB 650MG DOSE (2X325MG) PO PRN (03:25)
[2021-02-27] MEDS ORDERED: hydrOXYzine 50 MG TAB PO ONE (03:25)
[2021-02-27] MEDS ORDERED: PANT40TA29 PO (03:26)
[2021-02-27] MEDS ORDERED: BACI500O21 TOP (03:26)
[2021-02-27] MEDS ORDERED: VITMTA PO (03:26)
[2021-02-27] MEDS ORDERED: HYDR50TA70 PO (03:26)
[2021-02-27] MEDS ORDERED: SUCR1TA PO (03:26)
[2021-02-27] MEDS ORDERED: METH5SOL PO (03:32)
[2021-02-27] MEDS ORDERED: HOME MED LIST COMPLETE! XX SCH (03:35)
[2021-02-27 03:44] LABS: C REACTIVE PROTEIN QUANTITATIV 3.08 MG/DL (0.00-0.30)
[2021-02-27 03:53] LABS: ERYTHROCYTE SEDIMENTATION RATE 1 mm/hr (0-20)
[2021-02-27 04:21] LABS: HEMOGLOBIN A1c 5.6 %
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
[2021-02-27 06:33] LABS: BASO # 0.1 10^3/uL (0.0-0.2); BASO % 0.5 % (0.0-1.0); EOS # 0.1 10^3/uL (0.0-0.5); EOS % 1.4 % (0.0-3.0); HEMATOCRIT 47.9 % (36.0-47.0); HEMOGLOBIN 14.2 g/dl (12.0-15.5); LYMPH # 2.5 10^3/uL (1.5-5.0); LYMPH % 24.2 % (24.0-44.0); MEAN CORPUSCULAR HEMOGLOBIN 25.9 pg (27.0-33.0); MEAN CORPUSCULAR HGB CONC 29.6 g/dl (32.0-36.5); MEAN CORPUSCULAR VOLUME 87.2 fl (80.0-96.0); MONO # 0.7 10^3/uL (0.0-0.8); MONO % 6.4 % (2.0-8.0); NEUTROPHILS # 6.9 10^3/uL (1.5-8.5); NEUTROPHILS % 67.2 % (36.0-66.0); PLATELET COUNT, AUTOMATED 299 10^3/uL (150-450); RED BLOOD COUNT 5.49 10^6/uL (4.00-5.40); WHITE BLOOD COUNT 10.3 10^3/uL (4.0-10.0)
[2021-02-27 07:15] LABS: BLOOD UREA NITROGEN 4 MG/DL (7-18); CALCIUM LEVEL 9.1 MG/DL (8.5-10.1); CARBON DIOXIDE LEVEL 36 MEQ/L (21-32); CHLORIDE LEVEL 105 MEQ/L (98-107); CREATININE FOR GFR 0.71 MG/DL (0.55-1.30); GLOMERULAR FILTRATION RATE > 60.0 (>58); GLUCOSE, FASTING 87 MG/DL (70-100); POTASSIUM SERUM 4.8 MEQ/L (3.5-5.1); SODIUM LEVEL 143 MEQ/L (136-145)
--- NOTE | 2021-02-27 09:02 | ECGEPIP ---
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
[2021-02-27] MEDS: CETIRIZINE (ZyrTEC) 10 MG TAB PO SCH (09:08)
[2021-02-27] MEDS: PANTOPRAZOLE 40MG TAB (PROTONIX) PO SCH (09:08)
[2021-02-27] MEDS: SUCRALFATE 1 GM TAB PO SCH ×3 (09:08→17:14)
[2021-02-27] MEDS: MULTIVITAMINS/MINERALS THERAP 1 TAB PO SCH (09:09)
[2021-02-27] MEDS: METHADONE 10 MG TAB (S0109) PO SCH (09:09)
[2021-02-27] MEDS: SENOKOT S TAB PO SCH ×2 (09:09→20:44)
[2021-02-27 11:15] LABS: HCG, SERUM QUANTITATIVE < 1.0 MIU/ML; NT-PRO BNP 193 PG/ML (<125)
[2021-02-27] MEDS: BACITRACIN OINTMENT 30GM TUBE TOP SCH ×2 (11:41→20:45)
[2021-02-27] MEDS: NICOTINE 21MG/24HR 1 EA TRANSDERMAL TD SCH (11:42)
[2021-02-27] MEDS: LIDOCAINE 5% (LIDODERM) PATCH TD SCH (11:42)
[2021-02-27] MEDS: hydrOXYzine 50 MG TAB PO PRN ×2 (12:07→20:44)
--- NOTE | 2021-02-27 14:21 | IPNPDOC ---
Subjective Date Seen The patient was seen on 02/27/21. Subjective Chief Complaint/HPI Mrs. Yee is a 40 year old female with PEDRO, anxiety, fibromyalgia, and PTSD who is here for vertigo, HTN, and hypoxia. This morning, she was very anxious, and we discussed her lab findings. She does retain CO2, but she is compensated. There is no lethargy or confusion. She is only mildly acidotic on a VBG. She may have obesity hypoventilation syndrome, but this will be a chronic problem. I encourage use of CPAP. Otherwise, she is worried about her labile blood pressure and heart rate. I explained that this will change throughout the day. When the body goes into the flight or fight mode, heart rate will go up. Blood pressure can be artificially increased with anxiety and activity. I recommended that she takes deep breaths and try to relax and take it easy while she's here. In the mean time, I will order a lidocaine patch for her left lateral pain and tenderness. I will recheck a beta HCG per patient request as the previous was m ildly elevated at 6. She still has dizziness. Will order for MRI and PT for dizziness. Objective Physical Examination General Exam: Positive: Alert, Other (Notable anxious mood; 2 L nasal cannula) Eye Exam: Positive: EOMI; Negative: Sclera icteric ENT Exam: Positive: Atraumatic Neck Exam: Positive: Supple Chest Exam: Positive: Clear to auscultation Heart Exam: Positive: Rate Normal, Regular Rhythm Abdomen Exam: Positive: Normal bowel sounds, Soft, Tenderness (Some tenderness in the left lateral abdomen) Extremity Exam: Positive: Edema (1+ edema) Neuro Exam: Positive: Normal Gait, Normal Speech Psych Exam: Positive: Mental status NL, Anxiety Assessment /Plan Assessment Mrs. Yee is a 40 year old female with PEDRO, anxiety, fibromyalgia, and PTSD who is here for vertigo, HTN, and hypoxia. We will order a MRI to look for central vertigo. If negative then will have physical therapy work with patient for peripheral vertigo. There is concern for patient's initially low blood pressure. Her lisinopril was held and blood pressure has been stabilized. Unclear to patient's hypoxia. Hypoxia has been labile. At one point in time, she was on 1 L NC and saturating at 99%. Patient does have signs of OHS. Recommend continued use of CPAP. Will start incentive spirometer Plan/VTE VTE Prophylaxis Ordered?: Yes Plan 1. Dizziness MRI negative for CVA We will order PT for dizziness 2. OHS/PEDRO Patient is compensated for the elevation in CO2 Patient should continue using her CPAP and continue following up with pulmonology outpatient We will order incentive spirometer to help expansion of lung 3. Hypoxia Variable We will order incentive spirometer to help aeration of the lung 4. Hypertension Patient is very anxious, some of her high blood pressure readings may be from anxiety Lisinopril held and blood pressure stable Monitor blood pressure 5. Anxiety Patient requests hydroxyzine Continue hydroxyzine as needed Patient uses medical marijuana to help with anxiety outpatient 6. History of substance abuse Continue methadone 7. GERD Continue Carafate and Protonix 8. DVT prophylaxis SCDs and teds VS, I&O, 24H, Fishbone Vital Signs/I&O Vital Signs Date Time Temp Pulse Resp B/P (MAP) Pulse Ox O2 Delivery O2 Flow Rate FiO2 02/27/21 12:00 2.0 02/27/21 12:00 97.6 58 18 129/77 (94) 94 Nasal Cannula Laboratory Data 24H LABS Laboratory Tests 2 02/26/21 22:02: POC Beta HCG, Quantitative 6.2 02/26/21 22:03: Immature Granulocyte % (Auto) 0.4, Neutrophils (%) (Auto) 67.7H, Lymphocytes (%) (Auto) 24.6, Monocytes (%) (Auto) 5.8, Eosinophils (%) (Auto) 1.1, Basophils (%) (Auto) 0.4, Neutrophils # (Auto) 7.4, Lymphocytes # (Auto) 2.7, Monocytes # (Auto) 0.6, Eosinophils # (Auto) 0.1, Basophils # (Auto) 0.0, Nucleated Red Blood Cells % (auto) 0.0, Erythrocyte Sedimentation Rate 1, Prothrombin Time 14.5H, Prothromb Time International Ratio 1.09, Activated Partial Thromboplast Time 33.2, D-Dimer, Quantitative < 270, Urine Color STRAW, Urine Appearance CLEAR, Urine pH 7.0, Urine Specific [place] 1.003, Urine Protein NEGATIVE, Urine Glucose (Auto)(UA) NEGATIVE, Urine Ketones (Auto) NEGATIVE, Urine Blood NEGATIVE, Urine Nitrite NEGATIVE, Urine Bilirubin NEGATIVE, Urine Urobilinogen 0.2, Urine Leukocyte Esterase (Auto) NEGATIVE, Urine WBC (Auto) 1, Urine RBC (Auto) 1, Urine Hyaline Casts (Auto) 0, Urine Bacteria (Auto) NEGATIVE, Urine Squamous Epithelial Cells 4, Urine Sperm (Auto) , Anion Gap 4L, Glomerular Filtration Rate > 60.0, Estimated Mean Plasma Glucose 114H, Hemoglobin A1c 5.6, Calcium Level 9.0, Magnesium Level 2.1, Total Bilirubin 0.4, Direct Bilirubin 0.1, Aspartate Amino Transf (AST/SGOT) 13, Alanine Aminotransferase (ALT/SGPT) 20, Alkaline Phosphatase 111, Total Creatine Kinase 59, Creatine Kinase MB < 1.0, Creatine Kinase MB Relative Index 1.69, Troponin I < 0.02, C-Reactive Protein, Quantitative 3.08H, Total Protein 7.0, Albumin 3.5, Albumin/Globulin Ratio 1.0L, Procalcitonin <0.05, Thyroid Stimulating Hormone (TSH) 2.370, Free Thyroxine 1.29 02/26/21 23:05: Coronavirus (COVID-19)(PCR) NEGATIVE, Influenza Type A (RT-PCR) NEGATIVE, Influenza Type B (RT-PCR) NEGATIVE, Respiratory Syncytial Virus (PCR) NEGATIVE 02/27/21 01:49: POC pH (Misc Panel) 7.335L, POC Base Excess (Misc Panel) 9.0H, POC Saturated Percent O2 (Misc) 90L, POC pO2 (Misc Panel) 64.0L, POC pCO2 (Misc Panel) 65.6*H, POC HCO3 (Misc Panel) 35.0H, POC Total CO2 (Misc Panel) 37.0H 02/27/21 02:10: Urine Opiates Screen NEGATIVE, Urine Methadone Screen POSITIVEH, Urine Barbiturates Screen NEGATIVE, Urine Phencyclidine Screen NEGATIVE, Urine Amphetamines Screen NEGATIVE, Urine Benzodiazepines Screen NEGATIVE, Urine Cocaine Metabolite Screen NEGATIVE, Urine Cannabinoids Screen POSITIVEH 02/27/21 06:22: Immature Granulocyte % (Auto) 0.3, Neutrophils (%) (Auto) 67.2H, Lymphocytes (%) (Auto) 24.2, Monocytes (%) (Auto) 6.4, Eosinophils (%) (Auto) 1.4, Basophils (%) (Auto) 0.5, Neutrophils # (Auto) 6.9, Lymphocytes # (Auto) 2.5, Monocytes # (Auto) 0.7, Eosinophils # (Auto) 0.1, Basophils # (Auto) 0.1, Nucleated Red Blood Cells % (auto) 0.0, Anion Gap 2L, Glomerular Filtration Rate > 60.0, Calcium Level 9.1, IH-Ybt-Y-Type Natriuretic Peptide 193H, Thyroid Stimulating Hormone (TSH) 1.730, Human Chorionic Gonadotropin, Quant < 1.0 CBC/BMP Laboratory Tests 02/26/21 22:03 02/27/21 06:22 GIANCARLO MAXWELL DO Feb 27, 2021 14:21
--- NOTE | 2021-02-27 14:39 | REPVR ---
PROCEDURE INFORMATION: Exam: MR Head Without Contrast Exam date and time: 02/27/2021 1:09 PM Age: 40 years old Clinical indication: Dizziness TECHNIQUE: Imaging protocol: MR of the head without contrast. COMPARISON: CT Head without contrast 02/26/2021 11:08 PM FINDINGS: Brain: No acute infarct identified on the diffusion-weighted imaging. No parenchymal hemorrhage. No evidence of brain parenchymal edema or intracranial mass effect. No significant white matter disease. The anterior clinoid are pneumatized. Cerebral ventricles: Normal. No ventriculomegaly. Bones/joints: Unremarkable. Paranasal sinuses: Normal as visualized. No acute sinusitis. Mastoid air cells: Normal as visualized. No mastoid effusion. Orbital cavity: Unremarkable. Soft tissues: Unremarkable. IMPRESSION: No evidence of acute infarct. Electronically signed by: Shelby Ventura On 02/27/2021 14:38:53 PM
[2021-02-27] MEDS ORDERED: **NOTE PATIENT COMMENT** MISC XX SCH (21:00)
[2021-02-27] MEDS ORDERED: MOM 30ML SUSPENSION UDC PO ONE (22:05)
[2021-02-28] VITALS (8 sets, daily range): BP systolic 125–148; BP diastolic 71–76; O2SAT 91–99
[2021-02-28] MEDS: LEVALBUTEROL 1.25 MG/0.5 ML CONCENTRATE NEB NEB SCH ×3 (01:28→13:45)
[2021-02-28] MEDS: IPRATROPIUM 0.02% SOLN 0.5MG 2.5ML NEB NEB SCH ×3 (01:28→13:45)
[2021-02-28] MEDS: hydrOXYzine 50 MG TAB PO PRN (02:39)
[2021-02-28 05:36] LABS: BASO # 0.1 10^3/uL (0.0-0.2); BASO % 0.6 % (0.0-1.0); EOS # 0.2 10^3/uL (0.0-0.5); EOS % 1.9 % (0.0-3.0); HEMATOCRIT 47.4 % (36.0-47.0); HEMOGLOBIN 14.1 g/dl (12.0-15.5); LYMPH # 2.4 10^3/uL (1.5-5.0); LYMPH % 28.9 % (24.0-44.0); MEAN CORPUSCULAR HEMOGLOBIN 25.9 pg (27.0-33.0); MEAN CORPUSCULAR HGB CONC 29.7 g/dl (32.0-36.5); MONO # 0.6 10^3/uL (0.0-0.8); MONO % 6.6 % (2.0-8.0); NEUTROPHILS # 5.2 10^3/uL (1.5-8.5); NEUTROPHILS % 61.8 % (36.0-66.0); PLATELET COUNT, AUTOMATED 284 10^3/uL (150-450); RED BLOOD COUNT 5.45 10^6/uL (4.00-5.40); WHITE BLOOD COUNT 8.3 10^3/uL (4.0-10.0)
[2021-02-28 05:55] LABS: BLOOD UREA NITROGEN 6 MG/DL (7-18); CALCIUM LEVEL 8.6 MG/DL (8.5-10.1); CARBON DIOXIDE LEVEL 37 MEQ/L (21-32); CHLORIDE LEVEL 103 MEQ/L (98-107); CREATININE FOR GFR 0.81 MG/DL (0.55-1.30); GLOMERULAR FILTRATION RATE > 60.0 (>58); GLUCOSE, FASTING 95 MG/DL (70-100); POTASSIUM SERUM 4.1 MEQ/L (3.5-5.1); SODIUM LEVEL 142 MEQ/L (136-145)
[2021-02-28] MEDS: SUCRALFATE 1 GM TAB PO SCH (07:56)
[2021-02-28] MEDS ORDERED: FERROUS SULFATE 325MG TAB PO SCH (09:00)
[2021-02-28] MEDS: PANTOPRAZOLE 40MG TAB (PROTONIX) PO SCH (09:28)
[2021-02-28] MEDS: CETIRIZINE (ZyrTEC) 10 MG TAB PO SCH (09:28)
[2021-02-28] MEDS: METHADONE 10 MG TAB (S0109) PO SCH (09:28)
[2021-02-28] MEDS: NICOTINE 21MG/24HR 1 EA TRANSDERMAL TD SCH (09:28)
[2021-02-28] MEDS: SENOKOT S TAB PO SCH (09:29)
[2021-02-28] MEDS: MULTIVITAMINS/MINERALS THERAP 1 TAB PO SCH (09:29)
[2021-02-28] MEDS: LIDOCAINE 5% (LIDODERM) PATCH TD SCH (09:29)
[2021-02-28] MEDS ORDERED: MIRALAX *UNIT DOSE* 17GM PACKET PO SCH (09:40)
[2021-02-28] MEDS ORDERED: LIDO5TD TD (10:46)
[2021-02-28] MEDS ORDERED: NICO21PAT TD (10:50)
[2021-02-28] MEDS ORDERED: LIDO1CRE2 EX (11:55)
[2021-02-28] MEDS ORDERED: [UNRECOGNIZED DRUG - CODE] XX (14:36)
--- NOTE | 2021-02-28 18:40 | ECHO ---
ECHOCARDIOGRAM DATE OF PROCEDURE: 02/27/2021 Age: Gender: Female Height: 165 cm Weight: 126 kg REFERRING PHYSICIAN: Donnell Carl M.D. INDICATION: Dyspnea, unspecified. MEASUREMENTS: 2D Measurements: Interventricular septum 0.92 cm Posterior wall 1.04 cm Left ventricle diastole 4.4 cm Aortic root 2.9 cm Left atrium 3.9 cm Proximal ascending aorta 3.2 cm Doppler Measurements: LVOT velocity 112 cm/sec LVOT VTI 21.8 cm No mitral regurgitation No aortic regurgitation Aortic valve velocity 108 cm/sec Mitral A velocity 109 cm/sec Mitral deceleration time 251 msec Very mild tricuspid regurgitation Estimated right ventricle systolic pressure 33-38 mmHg Estimated right atrial pressure of 5-10 mmHg No pulmonic regurgitation Pulmonary artery acceleration time 92 msec MITRAL ANNULAR TISSUE DOPPLER: E prime septal 5.7 cm/sec E prime lateral 12.4 cm/sec DESCRIPTION: Rhythm was sinus. This was a moderately technically difficult echocardiogram, which was acquired with the patient on continuous positive airway pressure (CPAP). This was a 2D, M-mode, color flow Doppler and pulse wave Doppler examination including mitral annular tissue Doppler. CONCLUSIONS: 1. Technically difficult echocardiogram. 2. Normal left ventricle internal dimensions and wall thickness. Normal regional left ventricular (LV) wall motion and wall thickening. Normal LV systolic function. Left ventricular ejection fraction (LVEF) of 65% by visual estimate. Grade 1 LV diastolic dysfunction (impaired relaxation filling pattern). 3. Mild left atrial dilatation. 4. Suggestive of mild elevation of estimated right ventricle systolic pressure and pulmonary artery systolic pressure. 5. No pericardial effusion. 6. Normal right ventricle size and systolic function.
--- NOTE | 2021-02-28 20:26 | DS.PDOC ---
Discharge Summary General Date of Admission Feb 26, 2021 at 16:59 Date of Discharge Feb 28, 2021 Discharge Summary PROCEDURES PERFORMED DURING STAY: None ADMITTING DIAGNOSES: 1. Obesity hypoventilation syndrome 2. Obstructive sleep apnea 3. Morbid obesity 4. Hypertension 5. Asthma 6. Anxiety 7. History of substance abuse 8. Tobacco use disorder DISCHARGE DIAGNOSES: 1. Obesity hypoventilation syndrome 2. Obstructive sleep apnea 3. Morbid obesity 4. Hypertension 5. Asthma 6. Anxiety 7. History of substance abuse 8. Tobacco use disorder COMPLICATIONS/CHIEF COMPLAINT: Dizziness. HISTORY OF PRESENT ILLNESS: Copied from admitting provider's H&P " Ashley Yee is a 40-year-old white female with significant history of substance abusecurrently on methadone and 3 years without alcohol, current 1 p ack a day smoker, CPAP use at bedtime, asthma, hypertension, BED, PTSD/anxiety/and obesity who arrives with complaints of dizziness and reported labile blood pressure. Patient reports that she recently cut out soda and claims to have lost 50 pounds in the past month. Patient reports that her blood p ressure medicine is lisinopril 5 mg p.o. daily and she has had these episodes of high blood pressure and low blood pressure. She is highly anxious during exam as she was found to have some hypoxemia while in the ER and she expresses much anxiety regarding this as well as multisystem complaints. Of note with walking in ER patient desat to 88% on room air. CT head nonacute, CTA chest negative PE: Scattered atelectasis/hypoventilated lungs. ABG shows some hypercapnia and mild acidosis. Blood pressure normotensive during exam. WBC 10.6. PCR respiratory panel negative. UA negative patient will be admitted for further evaluation management presenting concerns. " HOSPITAL COURSE: While inpatient, patient had not needed lisinopril. Patient tells me that she rapidly lost weight when she stop drinking soda. The combination of weight loss and decrease of caffeine intake (from soda) most likely helped improved her blood pressure. She was concerned that her SBP had dropped below 100 while on lisinopril. We discontinued lisinopril, but I requested that she continue taking her blood pressure when she is relaxed. She has an anxious personality and may artificially raise her blood pressure. Otherwise, she was intermittently hypoxic when she first came in. CT angio chest was negative for PE or consolidation. It does demonstrate atelectasis and hyperexpanded lungs. VBG demonstrated increase pCO2, but she was compensated. No confusion or lethargy. I gave her IS to help with lung expansion. The next day, she was not hypoxic. She ambulated with physical therapy and her oxygen saturation did not drop. Patient initially reported dizziness. MRI was negative for central causes of dizziness. When she worked with physical therapy, she said it was more of a passing out sensation than vertigo. This may be from anxiety. Patient worked with physical therapy and cleared PT for home. Today, we had a long conversation about her medical issues as well as smoking cessation. Smoking cigarretts, vaping, and smoking marijuana would not be good for her lungs. We discharged her with nicotine patches to help with the tobacco cravings. She will switch to edible marijuana which would help with her anxiety. All of patient's questions were answered. I recommended that she follow up outpatient with pulmonary for her OHS/PEDRO. Patient is in agreement and was discharged home today. DISCHARGE MEDICATIONS: Please see below. ALLERGIES: Please see below. PHYSICAL EXAMINATION ON DISCHARGE: VITAL SIGNS: Please see below. PHYSICAL EXAM: GENERAL: Comfortable, in no apparent distress. HEENT: Head normocephalic/atraumatic, EOMI, sclera clear. NECK: Supple. RESPIRATORY: Lungs clear to auscultation bilaterally, no rales, wheeze or rhonchi. CARDIOVASCULAR: Regular rate and rhythm. ABDOMEN: Soft, nontender, no guarding or rebound tenderness. Normal bowel sounds. MUSCLE SKELETAL: Muscle strength 5/5 in all extremities. NEUROLOGICAL: CN 3-12 grossly intact, no focal deficits noted. PSYCHOLOGICAL: Anxious LABORATORY DATA: Please see below. IMAGING: Radiologist interpretation CT angio chest 1. Suboptimal pulmonary artery contrast concentration for pulmonary emboli evaluation. No main or segmental central pulmonary emboli. Nondiagnostic for more peripheral pulmonary branches. 2. Scattered subsegmental atelectasis. Hypoexpanded lungs. MRI brain No evidence of acute infarct. PROGNOSIS: Good ACTIVITY: As tolerated. DIET: 2gm sodium DISCHARGE PLAN: Home DISPOSITION: , Self-Care. DISCHARGE INSTRUCTIONS: 1. Follow up with your PCP within 3 to 4 days 2. Follow up with pulmonary in 1 week 3. Smoking cessation, please use nicotine patch 4. Measure your blood pressure daily ITEMS TO FOLLOWUP ON ON OUTPATIENT: 1. Echocardiogram results DISCHARGE CONDITION: Stable Total time spent on discharge planning, discharge summary, and medication reconciliation: 65 minutes Vital Signs/I&Os Vital Signs Date Time Temp Pulse Resp B/P (MAP) Pulse Ox O2 Delivery O2 Flow Rate FiO2 02/28/21 13:45 16 02/28/21 08:00 97.6 75 148/74 (98) 93 Nasal Cannula 2.0 I&O- Last 24 Hours up to 6 AM 02/28/21 06:00 Intake Total 1450 ml Output Total 500 ml Balance 950 ml Laboratory Data Labs 24H Laboratory Tests 2 02/28/21 05:18: Immature Granulocyte % (Auto) 0.2, Neutrophils (%) (Auto) 61.8, Lymphocytes (%) (Auto) 28.9, Monocytes (%) (Auto) 6.6, Eosinophils (%) (Auto) 1.9, Basophils (%) (Auto) 0.6, Neutrophils # (Auto) 5.2, Lymphocytes # (Auto) 2.4, Monocytes # (Auto) 0.6, Eosinophils # (Auto) 0.2, Basophils # (Auto) 0.1, Nucleated Red Bl ood Cells % (auto) 0.0, Anion Gap 2L, Glomerular Filtration Rate > 60.0, Calcium Level 8.6 CBC/BMP Laboratory Tests 02/28/21 05:18 Discharge Medications Scheduled Bacitracin (Bacitracin) 28 Gm Oint...g., 1 APLCT TOP BID, (Reported) APPLY TO AFFECTED AREA ON ABDOMEN Cetirizine HCl (Cetirizine HCl) 10 Mg Tablet, 10 MG PO DAILY, (Reported) Ferrous Sulfate (Ferrous Sulfate) 325 Mg Tablet.dr, 325 MG PO Q2D, (Reported) Methadone HCl (Methadone HCl) 5 Mg/5 Ml Solution, 72 MG PO DAILY, (Reported) Multivitamins (Thera M Plus Tablet) 1 Each Tablet, 1 TAB PO DAILY, (Reported) Nicotine (Nicotine Patch) 21 Mg Patch.td24, 1 PATCH TD DAILY Pantoprazole Sodium (Pantoprazole Sodium) 40 Mg Tablet.dr, 40 MG PO DAILY, (Reported) Sennosides/Docusate Sodium (Senexon-S 50-8.6 mg Tablet) 1 Each Tablet, 1 TAB PO BID, (Reported) Sucralfate (Sucralfate) 1 Gm Tablet, 1 GM PO AC, (Reported) Scheduled PRN Acetaminophen (Mapap) 500 Mg Capsule, 1,000 MG PO BID PRN for PAIN LEVEL 1-4, (Reported) Albuterol Sulfate (Ventolin Hfa) 18 Gm Hfa.aer.ad, 2 PUFFS INH Q6H PRN for SHORTNESS OF BREATH, (Reported) Hydroxyzine HCl (Hydroxyzine HCl) 50 Mg Tablet, 50 MG PO Q8H PRN for ANXIETY, (Reported) Levalbuterol HCl (Levalbuterol HCl) 1.25 Mg/3 Ml Vial.neb, 3 ML NEB Q8H PRN for WHEEZING, (Reported) Lidocaine (Lidocaine) 5 Gm Cream..g., 4 % EX Q6HP PRN for pain Ondansetron HCl (Ondansetron HCl) 4 Mg Tablet, 4 MG PO Q6H PRN for NAUSEA OR VOMITING, (Reported) Allergies Coded Allergies: Penicillins (Verified Allergy, Unknown, 11/19/18) clonidine (Verified Allergy, Unknown, 11/19/18) duloxetine (Verified Allergy, Unknown, 11/19/18) latex (Verified Allergy, Unknown, 11/19/18) trazodone (Verified Allergy, Unknown, 11/19/18) ziprasidone (Verified Allergy, Unknown, 11/19/18) GIANCARLO MAXWELL DO Feb 28, 2021 20:26
[2021-03-01 23:15] LABS: Lyme Disease IgG/IgM Antibodie <0.91 ISR (0.00-0.90); Lyme Disease IgM Ab Quantitati <0.80 index (0.00-0.79)
== END 2021-02-28 14:13 | disposition home or self-care (01) ==
LOC: M ED 16:58 → M ED INP 16:59 → ENRESERV 02-27 06:10 → M PCU 02-27 08:16
PROVIDERS: ADMIT Internal Medicine; ATTEND Internal Medicine
DX: E66.2 Morbid (severe) obesity with alveolar hypoventilation (principal); Z68.42 Body mass index [BMI] 45.0-49.9, adult; G47.33 Obstructive sleep apnea (adult) (pediatric); I10 Essential (primary) hypertension; J45.909 Unspecified asthma, uncomplicated; R09.02 Hypoxemia; F41.9 Anxiety disorder, unspecified; M79.7 Fibromyalgia; F43.10 Post-traumatic stress disorder, unspecified; K21.9 Gastro-esophageal reflux disease without esophagitis; F50.81 Binge eating disorder; G43.909 Migraine, unspecified, not intractable, without status migrainosus; F19.11 Other psychoactive substance abuse, in remission; F17.200 Nicotine dependence, unspecified, uncomplicated; Z79.899 Other long term (current) drug therapy; Z79.2 Long term (current) use of antibiotics; Z79.891 Long term (current) use of opiate analgesic; Z88.0 Allergy status to penicillin; Z88.8 Allergy status to other drugs, medicaments and biological substances; Z91.040 Latex allergy status
CPT/HCPCS: 36415; 36600; 70450; 70551; 71275; 80048; 80053; 80307; 81001; 82248; 82550; 82553; 82803; 83036; 83735; 83880; 84145; 84439; 84443; 84702; 85025; 85379; 85610; 85652; 85730; 86140; 86617; 87631; 93005; 93306; 94640; 97116; 97161; 97530; 99285; Q9967

== ENCOUNTER → 2021-04-13 | Outpatient (CLI) | payer OTHER ==
[~2021-04-13] MED LIST changes: +LIDO1CRE2 EX; +LIDO5TD TD; +METH5SOL PO; +PANT40TA29 PO; +SUCR1TA PO; +VITMTA PO; +[UNRECOGNIZED DRUG - CODE] XX
[2021-04-13 13:30] LABS: BASO # 0.1 10^3/uL (0.0-0.2); BASO % 0.7 % (0.0-1.0); EOS # 0.3 10^3/uL (0.0-0.5); EOS % 2.5 % (0.0-3.0); HEMATOCRIT 47.5 % (36.0-47.0); HEMOGLOBIN 14.4 g/dl (12.0-15.5); LYMPH # 2.2 10^3/uL (1.5-5.0); LYMPH % 20.2 % (24.0-44.0); MEAN CORPUSCULAR HEMOGLOBIN 26.7 pg (27.0-33.0); MEAN CORPUSCULAR HGB CONC 30.3 g/dl (32.0-36.5); MEAN CORPUSCULAR VOLUME 88.1 fl (80.0-96.0); MONO # 0.6 10^3/uL (0.0-0.8); MONO % 5.1 % (2.0-8.0); NEUTROPHILS # 7.8 10^3/uL (1.5-8.5); NEUTROPHILS % 71.2 % (36.0-66.0); PLATELET COUNT, AUTOMATED 290 10^3/uL (150-450); RED BLOOD COUNT 5.39 10^6/uL (4.00-5.40); WHITE BLOOD COUNT 10.9 10^3/uL (4.0-10.0)
[2021-04-13 14:15] LABS: ALBUMIN 3.4 GM/DL (3.2-5.2); ALT/SGPT 17 U/L (12-78); BILIRUBIN,TOTAL 0.4 MG/DL (0.2-1.0); BLOOD UREA NITROGEN 8 MG/DL (7-18); CALCIUM LEVEL 9.3 MG/DL (8.5-10.1); CARBON DIOXIDE LEVEL 34 MEQ/L (21-32); CHLORIDE LEVEL 102 MEQ/L (98-107); CHOLESTEROL LEVEL 172 MG/DL (<200); CHOLESTEROL RISK RATIO 3.909 (<5); CREATININE FOR GFR 0.86 MG/DL (0.55-1.30); GLOMERULAR FILTRATION RATE > 60.0 (>58); GLUCOSE, FASTING 78 MG/DL (70-100); HDL CHOLESTEROL 44 MG/DL (>40); LDL CHOLESTEROL 106 MG/DL (<100); NON-HDL-C 128 MG/DL; POTASSIUM SERUM 4.5 MEQ/L (3.5-5.1); SODIUM LEVEL 141 MEQ/L (136-145); THYROID STIMULATING HORMONE 0.806 uIU/ML (0.358-3.740); TOTAL PROTEIN 7.2 GM/DL (6.4-8.2); TRIGLYCERIDES LEVEL 109 MG/DL (<150)
== END ==
LOC: M LAB 12:19
DX: Z00.00 Encounter for general adult medical examination without abnormal findings (principal)

== ENCOUNTER → 2021-05-31 | Outpatient (CLI) | payer OTHER ==
--- NOTE | 2021-06-01 15:09 | SLEEPCENT ---
DATE: 05/31/2021 ORDERED BY: STEFAN Gabriel Nocturnal polysomnography was performed for re-titration of pressure therapy in this patient with obstructive sleep apnea syndrome and persistent symptoms. For testing, a ResMed AirFit F20 full face mask of medium size was used, 6 cm of water pressure were applied to the circuit and lights were extinguished. Seven hours and 6 minutes of data were reviewed, 411.5 minutes of sleep were identified. Sleep latency was normal at 8 minutes. REM latency was short at 32 minutes. Sleep architecture was good with five REM cycles. Overall, sleep efficiency 97.9%. The electrocardiogram showed a sinus rhythm with an average heart rate of 60 beats per minute. EEG showed normal waveforms for wake and sleep. Persistent respiratory events prompted increase in CPAP pressure despite optimal mask fit and minimal air leak. Patient required a change to a bilevel device. Best sleep was seen at a bilevel pressure therapy of 14/8. Despite optimal treatment of obstructive events, hypoxemia prompted the addition of supplemental oxygen at 2 liters per minute. Some limb activity was seen in the EMG leads. Limb movement arousal index on this occasion was 2.5. IMPRESSIONS: 1. Obstructive sleep apnea syndrome (G47.33). RECOMMENDATION: Nightly use of bilevel pressure therapy, inspiratory pressure 14/expiratory of 8 with 2 liters of oxygen bled through the CPAP system. cc: AARNO HINKLE MD
== END ==
LOC: M SLEEP 20:00
PROVIDERS: ATTEND Internal Medicine Pulmonary Disease
DX: G47.33 Obstructive sleep apnea (adult) (pediatric) (principal)

== ENCOUNTER → 2021-08-11 | Outpatient (CLI) | payer OTHER ==
[~2021-08-11] MED LIST changes: +FLUO-96 PO; -FLUO20CA20 PO; -LISI-898 PO; +LISI5TAB11 PO; -OMEP-221; +OMEP40CA5; +POTA-151; -POTA20TA6
[2021-08-11 09:31] LABS: HEMATOCRIT 47.1 % (36.0-47.0); HEMOGLOBIN 14.2 g/dl (12.0-15.5); MEAN CORPUSCULAR HEMOGLOBIN 29.3 pg (27.0-33.0); MEAN CORPUSCULAR HGB CONC 30.1 g/dl (32.0-36.5); MEAN CORPUSCULAR VOLUME 97.3 fl (80.0-96.0); PLATELET COUNT, AUTOMATED 241 10^3/uL (150-450); RED BLOOD COUNT 4.84 10^6/uL (4.00-5.40); WHITE BLOOD COUNT 10.1 10^3/uL (4.0-10.0)
[2021-08-11 09:57] LABS: ERYTHROCYTE SEDIMENTATION RATE 5 mm/hr (0-20); HEMOGLOBIN A1c 5.2 %
[2021-08-11 10:13] LABS: ALBUMIN 3.1 GM/DL (3.2-5.2); ALT/SGPT 15 U/L (12-78); BILIRUBIN,TOTAL 0.3 MG/DL (0.2-1.0); BLOOD UREA NITROGEN 10 MG/DL (7-18); C REACTIVE PROTEIN QUANTITATIV 2.28 MG/DL (0.00-0.30); CALCIUM LEVEL 8.6 MG/DL (8.5-10.1); CARBON DIOXIDE LEVEL 37 MEQ/L (21-32); CHLORIDE LEVEL 100 MEQ/L (98-107); CHOLESTEROL LEVEL 153 MG/DL (<200); CHOLESTEROL RISK RATIO 3.122 (<5); CREATININE FOR GFR 0.81 MG/DL (0.55-1.30); FERRITIN 19 NG/ML (8-252); GLOMERULAR FILTRATION RATE > 60.0 (>58); GLUCOSE, FASTING 100 MG/DL (70-100); HDL CHOLESTEROL 49 MG/DL (>40); IRON (FE) 52 UG/DL (50-170); LDL CHOLESTEROL 84 MG/DL (<100); NON-HDL-C 104 MG/DL; POTASSIUM SERUM 4.8 MEQ/L (3.5-5.1); RHEUMATOID FACTOR QUANT < 10.0 IU/ML (<15.0); SODIUM LEVEL 139 MEQ/L (136-145); THYROID STIMULATING HORMONE 0.915 uIU/ML (0.358-3.740); TOTAL 25(OH) VITAMIN D 38.6 NG/ML (30.0-100.0); TOTAL PROTEIN 6.9 GM/DL (6.4-8.2); TRIGLYCERIDES LEVEL 100 MG/DL (<150)
[2021-08-12 14:13] LABS: ANTINUCLEAR ANTIBODIES DIRECT Negative (Negative)
== END ==
LOC: M LAB 08:59
PROVIDERS: ATTEND Nurse Practitioner Family
DX: I10 Essential (primary) hypertension (principal); Z13.220 Encounter for screening for lipoid disorders; D50.9 Iron deficiency anemia, unspecified; E28.2 Polycystic ovarian syndrome; G25.0 Essential tremor; M25.50 Pain in unspecified joint; E55.9 Vitamin D deficiency, unspecified

== ENCOUNTER → 2021-11-26 | Outpatient (CLI) | payer OTHER ==
[~2021-11-26] MED LIST changes: -VITA200015; +VITA200035
[2021-11-26 08:48] LABS: HEMATOCRIT 43.2 % (36.0-47.0); HEMOGLOBIN 12.9 g/dl (12.0-15.5); MEAN CORPUSCULAR HEMOGLOBIN 29.3 pg (27.0-33.0); MEAN CORPUSCULAR HGB CONC 29.9 g/dl (32.0-36.5); PLATELET COUNT, AUTOMATED 236 10^3/uL (150-450); RED BLOOD COUNT 4.41 10^6/uL (4.00-5.40); WHITE BLOOD COUNT 10.4 10^3/uL (4.0-10.0)
[2021-11-26 09:25] LABS: HCG, SERUM QUALITATIVE NEGATIVE (NEGATIVE)
[2021-11-26 10:35] LABS: ALBUMIN 2.8 GM/DL (3.2-5.2); ALT/SGPT 12 U/L (12-78); BILIRUBIN,TOTAL 0.3 MG/DL (0.2-1.0); BLOOD UREA NITROGEN 11 MG/DL (7-18); CALCIUM LEVEL 8.9 MG/DL (8.5-10.1); CARBON DIOXIDE LEVEL 46 MEQ/L (21-32); CHLORIDE LEVEL 89 MEQ/L (98-107); CREATININE FOR GFR 0.86 MG/DL (0.55-1.30); GLOMERULAR FILTRATION RATE > 60.0 (>58); GLUCOSE, FASTING 116 MG/DL (70-100); HEPATITIS B SURFACE ANTIGEN NEGATIVE (NEGATIVE); HEPATITIS C VIRUS ABY INDEX 0.1 INDEX (<0.8); HIV 1&2 SCREEN CENTAUR NEGATIVE (NEGATIVE); POTASSIUM SERUM 3.4 MEQ/L (3.5-5.1); SODIUM LEVEL 138 MEQ/L (136-145); TOTAL PROTEIN 6.9 GM/DL (6.4-8.2)
[2021-11-26 22:03] LABS: GC DNA AMPLIFICATION NEGATIVE (NEGATIVE)
== END ==
LOC: M EKG 07:53
PROVIDERS: ATTEND Family Medicine
DX: F11.21 Opioid dependence, in remission (principal)

== ENCOUNTER 2021-12-19 23:08 | Inpatient (IN) | payer MEDICAID, OTHER ==
[~2021-12-19] VITALS: Ht 165.1 cm; Wt 133.0 kg
[2021-12-19] MEDS ORDERED: PAXI40TA10 PO (23:22)
[2021-12-19] MEDS ORDERED: IBUP1TAB6 PO (23:22)
[2021-12-19] MEDS ORDERED: ABIL1TAB11 PO (23:22)
[2021-12-19] MEDS ORDERED: DOXA1TAB41 PO (23:22)
[2021-12-20] MEDS ORDERED: ACETAMINOPHEN 500 MG TAB PO ONE (07:30)
[2021-12-20] MEDS ORDERED: LIDOCAINE 5% (LIDODERM) PATCH TD ONE (07:30)
[2021-12-20 08:44] LABS: HEMATOCRIT 44.7 % (36.0-47.0); HEMOGLOBIN 13.4 g/dl (12.0-15.5); MEAN CORPUSCULAR HEMOGLOBIN 29.6 pg (27.0-33.0); MEAN CORPUSCULAR VOLUME 98.9 fl (80.0-96.0); PLATELET COUNT, AUTOMATED 256 10^3/uL (150-450); RED BLOOD COUNT 4.52 10^6/uL (4.00-5.40); WHITE BLOOD COUNT 10.4 10^3/uL (4.0-10.0)
[2021-12-20 09:02] LABS: AMPHETAMINES LEVEL URINE NEGATIVE (NEGATIVE); BARBITURATES URINE NEGATIVE (NEGATIVE); BENZODIAZEPINES URINE NEGATIVE (NEGATIVE); CANNABINOIDS URINE POSITIVE (NEGATIVE); COCAINE METABOLITE URINE NEGATIVE (NEGATIVE); METHADONE URINE POSITIVE (NEGATIVE); OPIATES URINE NEGATIVE (NEGATIVE); PHENCYCLIDINE URINE NEGATIVE (NEGATIVE)
[2021-12-20 09:58] LABS: ACETAMINOPHEN LEVEL < 2.0 UG/ML (10.0-30.0); BLOOD UREA NITROGEN 8 MG/DL (7-18); CALCIUM LEVEL 9.5 MG/DL (8.5-10.1); CARBON DIOXIDE LEVEL 52 MEQ/L (21-32); CHLORIDE LEVEL 88 MEQ/L (98-107); CREATININE FOR GFR 0.89 MG/DL (0.55-1.30); ETHYL ALCOHOL (ETHANOL) < 0.003 % (0.000-0.010); GLOMERULAR FILTRATION RATE > 60.0 (>58); GLUCOSE, FASTING 94 MG/DL (70-100); SALICYLATE LEVEL < 1.7 MG/DL (5.0-30.0); SODIUM LEVEL 139 MEQ/L (136-145)
[2021-12-20] MEDS ORDERED: METHADONE 10MG TAB PO ONE (12:30)
[2021-12-20] MEDS ORDERED: METHADONE 5MG TAB PO ONE (12:45)
[2021-12-20] MEDS ORDERED: POTASSIUM CHLORIDE 10MEQ SR TABLET PO ONE (13:30)
[2021-12-20 14:25] LABS: RSV AMPLIFICATION NEGATIVE (NEGATIVE)
[2021-12-20] MEDS ORDERED: ACETAMINOPHEN TAB 650MG DOSE (2X325MG) PO PRN (19:10)
[2021-12-20] MEDS ORDERED: traZODone 50 MG TAB PO PRN (19:10)
[2021-12-20] MEDS ORDERED: IBUPROFEN 600MG TAB PO PRN ×2 (19:10→20:55)
[2021-12-20] MEDS ORDERED: MOM 30ML SUSPENSION UDC PO PRN (19:10)
[2021-12-20] MEDS ORDERED: PROP20TA72 PO (20:01)
[2021-12-20] MEDS ORDERED: ABIL1INJ IM (20:01)
[2021-12-20] MEDS ORDERED: PRAZ1CAP PO (20:01)
[2021-12-20] MEDS ORDERED: BENZ-52 PO (20:01)
[2021-12-20] MEDS ORDERED: PRAZ5CAP PO (20:01)
[2021-12-20] MEDS ORDERED: METF500T13 PO (20:01)
[2021-12-20] MEDS ORDERED: HYDR-3490 PO (20:01)
[2021-12-20] MEDS ORDERED: LEVA45AE INH (20:01)
[2021-12-20] MEDS ORDERED: PARO20TA3 PO (20:25)
[2021-12-20] MEDS ORDERED: HOME MED LIST COMPLETE! XX SCH (20:30)
[2021-12-20] MEDS ORDERED: LEVALBUTEROL HFA 45MCG/ACT 15 GM INHALER INH PRN (20:55)
[2021-12-20] MEDS: **NOTE PATIENT COMMENT** MISC XX SCH (21:00)
[2021-12-20] MEDS ORDERED: BENZTROPINE 0.5 MG TAB PO SCH (21:00)
[2021-12-20 23:24] VITALS: BP 138/87
[2021-12-20] MEDS: BENZTROPINE 1 MG TAB PO SCH (23:42)
[2021-12-20] MEDS: SENOKOT S TAB PO SCH (23:42)
[2021-12-20] MEDS: OLANZapine ORAL DISINTEGRATING TAB 5MG PO PRN (23:44)
[2021-12-21] MEDS: DOXAZOSIN MESYLATE 1 MG TAB PO SCH ×2 (00:19→20:03)
[2021-12-21] MEDS: BACITRACIN OINTMENT 30GM TUBE TOP SCH ×3 (00:19→20:04)
[2021-12-21] MEDS: PROPRANOLOL 20 MG TAB PO PRN (06:13)
[2021-12-21 06:30] VITALS: BP 155/87
[2021-12-21] MEDS: PANTOPRAZOLE 40MG TAB (PROTONIX) PO SCH (07:50)
[2021-12-21] MEDS: SENOKOT S TAB PO SCH ×2 (07:50→20:04)
[2021-12-21] MEDS: MULTIVITAMINS/MINERALS THERAP 1 TAB PO SCH (07:50)
[2021-12-21] MEDS: PARoxetine 20MG TABLET PO SCH (07:50)
[2021-12-21] MEDS: metFORMIN (GLUCOPHAGE) 500MG TAB PO SCH (07:50)
[2021-12-21] MEDS: CETIRIZINE (ZyrTEC) 10 MG TAB PO SCH (07:50)
[2021-12-21] MEDS ORDERED: PARoxetine 20MG TABLET PO SCH (09:00)
[2021-12-21] MEDS: METHADONE 10MG TAB PO SCH (09:30)
[2021-12-21] MEDS: TOPIRAMATE (TopAMAX) 25 MG TAB PO SCH ×2 (11:19→20:03)
[2021-12-21] MEDS ORDERED: CALCIUM CARBONATE 500 MG CHEW U/D PO PRN (13:00)
[2021-12-21] MEDS: OLANZapine ORAL DISINTEGRATING TAB 5MG PO PRN (15:31)
[2021-12-21] MEDS ORDERED: ARIPiprazole MONOHYDRATE 400 MG INJ (ABILIFY)(FREE PSY INPT ONLY) IM ONE (16:00)
[2021-12-21 16:42] VITALS: BP 140/84
[2021-12-21] MEDS: BENZTROPINE 1 MG TAB PO SCH (20:04)
[2021-12-21] MEDS: RAMELTEON 8 MG TAB (ROZEREM) PO SCH (20:04)
[2021-12-21] MEDS: **NOTE PATIENT COMMENT** MISC XX SCH (20:09)
[2021-12-22] MEDS: PROPRANOLOL 20 MG TAB PO PRN (05:43)
[2021-12-22 06:23] VITALS: BP 128/71
[2021-12-22 06:46] LABS: CHOLESTEROL RISK RATIO 3.725 (<5)
[2021-12-22] MEDS: METHADONE 10MG TAB PO SCH (07:40)
[2021-12-22] MEDS: PARoxetine 20MG TABLET PO SCH (07:40)
[2021-12-22] MEDS: BACITRACIN OINTMENT 30GM TUBE TOP SCH ×2 (07:41→20:38)
[2021-12-22] MEDS: PANTOPRAZOLE 40MG TAB (PROTONIX) PO SCH (07:41)
[2021-12-22] MEDS: MULTIVITAMINS/MINERALS THERAP 1 TAB PO SCH (07:41)
[2021-12-22] MEDS: metFORMIN (GLUCOPHAGE) 500MG TAB PO SCH (07:41)
[2021-12-22] MEDS: SENOKOT S TAB PO SCH ×2 (07:41→20:37)
[2021-12-22] MEDS: TOPIRAMATE (TopAMAX) 25 MG TAB PO SCH ×2 (07:41→20:37)
[2021-12-22] MEDS: CETIRIZINE (ZyrTEC) 10 MG TAB PO SCH (07:41)
[2021-12-22] MEDS: FERROUS SULFATE 325MG TAB PO SCH (07:41)
[2021-12-22 10:14] VITALS: BP 128/71
[2021-12-22 16:39] VITALS: BP 122/60
[2021-12-22] MEDS: OLANZapine ORAL DISINTEGRATING TAB 5MG PO PRN (19:31)
[2021-12-22] MEDS: DOXAZOSIN MESYLATE 1 MG TAB PO SCH (20:37)
[2021-12-22] MEDS: BENZTROPINE 1 MG TAB PO SCH (20:37)
[2021-12-22] MEDS: RAMELTEON 8 MG TAB (ROZEREM) PO SCH (20:37)
[2021-12-22] MEDS: **NOTE PATIENT COMMENT** MISC XX SCH (20:42)
[2021-12-23] MEDS ORDERED: traZODone 50 MG TAB PO PRN (00:15)
[2021-12-23 07:18] VITALS: BP 121/58
[2021-12-23] MEDS: TOPIRAMATE (TopAMAX) 25 MG TAB PO SCH ×2 (08:07→20:30)
[2021-12-23] MEDS: metFORMIN (GLUCOPHAGE) 500MG TAB PO SCH (08:07)
[2021-12-23] MEDS: MULTIVITAMINS/MINERALS THERAP 1 TAB PO SCH (08:07)
[2021-12-23] MEDS: SENOKOT S TAB PO SCH ×2 (08:07→20:30)
[2021-12-23] MEDS: PANTOPRAZOLE 40MG TAB (PROTONIX) PO SCH (08:07)
[2021-12-23] MEDS: CETIRIZINE (ZyrTEC) 10 MG TAB PO SCH (08:07)
[2021-12-23] MEDS: BACITRACIN OINTMENT 30GM TUBE TOP SCH ×2 (08:08→20:29)
[2021-12-23] MEDS: METHADONE 10MG TAB PO SCH (08:09)
[2021-12-23] MEDS ORDERED: MAGIC MOUTHWASH SUSPENSION BTL SSP PRN (13:05)
[2021-12-23 15:30] VITALS: BP 120/50
[2021-12-23 15:31] VITALS: BP 115/80
[2021-12-23 15:33] VITALS: BP 120/50
[2021-12-23 16:52] VITALS: BP 137/68
[2021-12-23] MEDS: PROPRANOLOL 20 MG TAB PO PRN (16:52)
[2021-12-23] MEDS: MAALOX 30 ML SUSP *UDC PO PRN (17:31)
[2021-12-23 17:36] VITALS: BP 115/80
[2021-12-23] MEDS: BENZTROPINE 1 MG TAB PO SCH (20:30)
[2021-12-23] MEDS: RAMELTEON 8 MG TAB (ROZEREM) PO SCH (20:30)
[2021-12-23] MEDS ORDERED: PARoxetine 20MG TABLET PO SCH (21:00)
[2021-12-24] MEDS: MAALOX 30 ML SUSP *UDC PO PRN (04:02)
[2021-12-24 06:49] VITALS: BP 118/72
[2021-12-24] MEDS: metFORMIN (GLUCOPHAGE) 500MG TAB PO SCH (08:18)
[2021-12-24] MEDS: METHADONE 10MG TAB PO SCH (08:18)
[2021-12-24] MEDS: SENOKOT S TAB PO SCH (08:18)
[2021-12-24] MEDS: MULTIVITAMINS/MINERALS THERAP 1 TAB PO SCH (08:19)
[2021-12-24] MEDS: TOPIRAMATE (TopAMAX) 25 MG TAB PO SCH (08:19)
[2021-12-24] MEDS: FERROUS SULFATE 325MG TAB PO SCH (08:19)
[2021-12-24] MEDS: PANTOPRAZOLE 40MG TAB (PROTONIX) PO SCH (08:19)
[2021-12-24] MEDS: CETIRIZINE (ZyrTEC) 10 MG TAB PO SCH (08:19)
[2021-12-24] MEDS: BACITRACIN OINTMENT 30GM TUBE TOP SCH (08:22)
[2021-12-24] MEDS ORDERED: PARO40TA3 PO (08:36)
[2021-12-24] MEDS ORDERED: TOPA1TAB PO (08:36)
[2021-12-24] MEDS ORDERED: RAME8TAB2 PO (08:36)
[2021-12-24] MEDS ORDERED: TRAZ-252 PO (08:36)
[2021-12-24] MEDS ORDERED: BENZ-52 PO (08:36)
[2021-12-24] MEDS ORDERED: PROP20TA72 PO (08:36)
[2021-12-24] MEDS ORDERED: PARO20TA4 PO (08:36)
[2021-12-24] MEDS ORDERED: ABIL1INJ2 IM (08:38)
== END 2021-12-24 10:49 | disposition home or self-care (01) | DRG 751 ==
LOC: M ED 23:08 → M ED INP 12-20 19:07 → M PSY 12-20 22:05
PROVIDERS: ADMIT Student in an Organized Health Care Education/Training Program; ATTEND Student in an Organized Health Care Education/Training Program
DX: F28 Other psychotic disorder not due to a substance or known physiological condition (principal); J96.11 Chronic respiratory failure with hypoxia; Z99.81 Dependence on supplemental oxygen; F31.9 Bipolar disorder, unspecified; F43.10 Post-traumatic stress disorder, unspecified; M79.7 Fibromyalgia; F11.11 Opioid abuse, in remission; Z81.8 Family history of other mental and behavioral disorders; K57.90 Diverticulosis of intestine, part unspecified, without perforation or abscess without bleeding; G43.909 Migraine, unspecified, not intractable, without status migrainosus; E78.5 Hyperlipidemia, unspecified; Z62.810 Personal history of physical and sexual abuse in childhood; Z79.899 Other long term (current) drug therapy; Z88.0 Allergy status to penicillin; Z88.8 Allergy status to other drugs, medicaments and biological substances; Z91.040 Latex allergy status; G47.33 Obstructive sleep apnea (adult) (pediatric); S82.492D Other fracture of shaft of left fibula, subsequent encounter for closed fracture with routine healing

== ENCOUNTER 2022-01-07 11:41 | Emergency (ER) | payer MEDICAID, OTHER ==
[~2022-01-07 11:41] MED LIST changes: +ABIL1INJ IM; +ABIL1INJ2 IM; +ABIL1TAB11 PO; +BENZ-52 PO; +DOXA1TAB41 PO; +HYDR-3490 PO; +IBUP1TAB6 PO; +LEVA45AE INH; +METF500T13 PO; +PARO20TA3 PO; +PARO20TA4 PO; +PARO40TA3 PO; +PAXI40TA10 PO; +PRAZ5CAP PO; +PROP20TA72 PO; +RAME8TAB2 PO; +TRAZ-252 PO
[2022-01-07 12:30] LABS: BASO # 0.1 10^3/uL (0.0-0.2); BASO % 0.6 % (0.0-1.0); EOS # 0.2 10^3/uL (0.0-0.5); EOS % 2.2 % (0.0-3.0); HEMATOCRIT 42.6 % (36.0-47.0); HEMOGLOBIN 12.5 g/dl (12.0-15.5); LYMPH % 22.4 % (24.0-44.0); MEAN CORPUSCULAR HEMOGLOBIN 29.1 pg (27.0-33.0); MEAN CORPUSCULAR HGB CONC 29.3 g/dl (32.0-36.5); MEAN CORPUSCULAR VOLUME 99.3 fl (80.0-96.0); MONO # 0.5 10^3/uL (0.0-0.8); MONO % 5.6 % (2.0-8.0); NEUTROPHILS # 6.2 10^3/uL (1.5-8.5); NEUTROPHILS % 68.6 % (36.0-66.0); PLATELET COUNT, AUTOMATED 249 10^3/uL (150-450); RED BLOOD COUNT 4.29 10^6/uL (4.00-5.40)
[2022-01-07 13:00] LABS: CK-MB VALUE MASS < 1.0 NG/ML (<3.6); CPK CREATINE PHOSPHOKINASE 42 U/L (26-192); MB/CK RELATIVE INDEX 2.38 (< OR =4)
[2022-01-07 13:07] LABS: BLOOD UREA NITROGEN 6 MG/DL (7-18); CALCIUM LEVEL 8.1 MG/DL (8.5-10.1); CARBON DIOXIDE LEVEL 45 MEQ/L (21-32); CHLORIDE LEVEL 93 MEQ/L (98-107); CREATININE FOR GFR 0.88 MG/DL (0.55-1.30); ETHYL ALCOHOL (ETHANOL) < 0.003 % (0.000-0.010); GLOMERULAR FILTRATION RATE > 60.0 (>58); GLUCOSE, FASTING 96 MG/DL (70-100); MAGNESIUM LEVEL 2.2 MG/DL (1.8-2.4); POTASSIUM SERUM 3.1 MEQ/L (3.5-5.1); SODIUM LEVEL 139 MEQ/L (136-145)
[2022-01-07 13:10] LABS: HCG, SERUM QUALITATIVE NEGATIVE (NEGATIVE)
[2022-01-07 17:03] LABS: AMPHETAMINES LEVEL URINE NEGATIVE (NEGATIVE); BARBITURATES URINE NEGATIVE (NEGATIVE); BENZODIAZEPINES URINE NEGATIVE (NEGATIVE); CANNABINOIDS URINE POSITIVE (NEGATIVE); COCAINE METABOLITE URINE NEGATIVE (NEGATIVE); METHADONE URINE POSITIVE (NEGATIVE); OPIATES URINE NEGATIVE (NEGATIVE); PHENCYCLIDINE URINE NEGATIVE (NEGATIVE)
[2022-01-07 17:51] VITALS: BP 141/87
== END 2022-01-07 17:54 | disposition home or self-care (01) ==
LOC: M ED 11:41 → EDBD 11:41 → M ED 17:54
DX: R55 Syncope and collapse (principal); I10 Essential (primary) hypertension; J45.909 Unspecified asthma, uncomplicated; G40.909 Epilepsy, unspecified, not intractable, without status epilepticus; G47.33 Obstructive sleep apnea (adult) (pediatric); M79.7 Fibromyalgia; Z79.899 Other long term (current) drug therapy; Z79.84 Long term (current) use of oral hypoglycemic drugs; Z79.891 Long term (current) use of opiate analgesic; Z88.0 Allergy status to penicillin; Z88.8 Allergy status to other drugs, medicaments and biological substances; Z91.040 Latex allergy status

== ENCOUNTER 2022-01-11 13:57 | Inpatient (IN) | payer OTHER ==
[~2022-01-11] VITALS: Ht 162.6 cm; Wt 97.6 kg
[2022-01-11 15:28] LABS: HEMATOCRIT 42.5 % (36.0-47.0); HEMOGLOBIN 12.7 g/dl (12.0-15.5); MEAN CORPUSCULAR HEMOGLOBIN 28.6 pg (27.0-33.0); MEAN CORPUSCULAR HGB CONC 29.9 g/dl (32.0-36.5); MEAN CORPUSCULAR VOLUME 95.7 fl (80.0-96.0); PLATELET COUNT, AUTOMATED 251 10^3/uL (150-450); RED BLOOD COUNT 4.44 10^6/uL (4.00-5.40); WHITE BLOOD COUNT 10.3 10^3/uL (4.0-10.0)
[2022-01-11 16:01] LABS: HCG, SERUM QUALITATIVE NEGATIVE (NEGATIVE)
[2022-01-11 16:02] LABS: RSV AMPLIFICATION NEGATIVE (NEGATIVE)
[2022-01-11 16:07] LABS: ALBUMIN 2.8 GM/DL (3.2-5.2); ALT/SGPT 13 U/L (12-78); BILIRUBIN,DIRECT 0.1 MG/DL (0.0-0.2); BILIRUBIN,TOTAL 0.4 MG/DL (0.2-1.0); BLOOD UREA NITROGEN 8 MG/DL (7-18); CALCIUM LEVEL 8.4 MG/DL (8.5-10.1); CARBON DIOXIDE LEVEL 43 MEQ/L (21-32); CHLORIDE LEVEL 95 MEQ/L (98-107); CREATININE FOR GFR 0.92 MG/DL (0.55-1.30); ETHYL ALCOHOL (ETHANOL) 0.003 % (0.000-0.010); GLOMERULAR FILTRATION RATE > 60.0 (>58); GLUCOSE, FASTING 92 MG/DL (70-100); POTASSIUM SERUM 3.1 MEQ/L (3.5-5.1); SALICYLATE LEVEL < 1.7 MG/DL (5.0-30.0); SODIUM LEVEL 138 MEQ/L (136-145); THYROID STIMULATING HORMONE 0.713 uIU/ML (0.358-3.740); TOTAL PROTEIN 6.5 GM/DL (6.4-8.2)
[2022-01-11 17:21] LABS: AMPHETAMINES LEVEL URINE NEGATIVE (NEGATIVE); BARBITURATES URINE NEGATIVE (NEGATIVE); BENZODIAZEPINES URINE NEGATIVE (NEGATIVE); CANNABINOIDS URINE POSITIVE (NEGATIVE); COCAINE METABOLITE URINE NEGATIVE (NEGATIVE); METHADONE URINE POSITIVE (NEGATIVE); OPIATES URINE NEGATIVE (NEGATIVE); PHENCYCLIDINE URINE NEGATIVE (NEGATIVE)
[2022-01-11 17:52] LABS: ACETAMINOPHEN LEVEL < 2.0 UG/ML (0.0-30.0)
[2022-01-11] MEDS ORDERED: PARO40TA2 PO (19:51)
[2022-01-11] MEDS ORDERED: TOPI25TA10 PO (19:51)
[2022-01-11] MEDS ORDERED: ROZE8TAB16 PO (19:51)
[2022-01-11] MEDS ORDERED: PARO20TA3 PO (19:51)
[2022-01-11] MEDS ORDERED: BENZ-52 PO (19:51)
[2022-01-11] MEDS ORDERED: TRAZ-186 PO (19:51)
[2022-01-11] MEDS ORDERED: PROP20TA PO (19:51)
[2022-01-11] MEDS ORDERED: LIDO1CRE2 TOP (19:51)
[2022-01-11] MEDS ORDERED: HOME MED LIST COMPLETE! XX SCH (19:55)
[2022-01-11] MEDS ORDERED: traZODone 50 MG TAB PO PRN (21:45)
[2022-01-11] MEDS ORDERED: MOM 30ML SUSPENSION UDC PO PRN (21:45)
[2022-01-11] MEDS ORDERED: MAALOX 30 ML SUSP *UDC PO PRN (21:45)
[2022-01-11] MEDS ORDERED: LEVALBUTEROL HFA 45MCG/ACT 15 GM INHALER INH PRN (22:00)
[2022-01-11] MEDS ORDERED: POTASSIUM CHLORIDE 10MEQ SR TABLET PO ONE (22:00)
[2022-01-11] MEDS ORDERED: ONDANSETRON 4MG TAB PO PRN (22:00)
[2022-01-11] MEDS ORDERED: IBUPROFEN 600MG TAB PO PRN (22:00)
[2022-01-12 00:02] VITALS: BP 139/74
[2022-01-12 00:15] VITALS: BP 119/72
[2022-01-12] MEDS: RAMELTEON 8 MG TAB (ROZEREM) PO SCH ×2 (00:30→20:29)
[2022-01-12] MEDS: TOPIRAMATE (TopAMAX) 25 MG TAB PO SCH ×3 (00:30→20:29)
[2022-01-12] MEDS: BENZTROPINE 1 MG TAB PO SCH ×2 (00:30→20:29)
[2022-01-12 00:35] VITALS: BP 122/78
[2022-01-12] MEDS: DOXAZOSIN MESYLATE 1 MG TAB PO SCH ×2 (00:40→22:15)
[2022-01-12 01:15] VITALS: BP 119/72
[2022-01-12 07:17] LABS: BLOOD UREA NITROGEN 8 MG/DL (7-18); CALCIUM LEVEL 8.8 MG/DL (8.5-10.1); CARBON DIOXIDE LEVEL 45 MEQ/L (21-32); CHLORIDE LEVEL 97 MEQ/L (98-107); CREATININE FOR GFR 0.94 MG/DL (0.55-1.30); GLOMERULAR FILTRATION RATE > 60.0 (>58); GLUCOSE, FASTING 96 MG/DL (70-100); POTASSIUM SERUM 3.7 MEQ/L (3.5-5.1); SODIUM LEVEL 141 MEQ/L (136-145)
[2022-01-12] MEDS ORDERED: PARoxetine 20MG TABLET PO SCH ×2 (09:00)
[2022-01-12] MEDS: CETIRIZINE (ZyrTEC) 10 MG TAB PO SCH (09:06)
[2022-01-12] MEDS: MULTIVITAMINS/MINERALS THERAP 1 TAB PO SCH (09:06)
[2022-01-12] MEDS: PANTOPRAZOLE 40MG TAB (PROTONIX) PO SCH (09:06)
[2022-01-12] MEDS: OLANZapine ORAL DISINTEGRATING TAB 5MG PO PRN (09:29)
[2022-01-12] MEDS: METHADONE 10MG TAB PO SCH (10:00)
[2022-01-12] MEDS: PARoxetine 20MG TABLET PO SCH (10:00)
[2022-01-12] MEDS ORDERED: MIRALAX *UNIT DOSE* 17GM PACKET PO PRN (15:40)
[2022-01-12] MEDS: DOCUSATE SODIUM 100MG CAPSULE PO SCH ×2 (16:27→20:28)
[2022-01-12] MEDS: CEPACOL LOZENGE PO PRN ×2 (16:28→20:33)
[2022-01-12] MEDS: LIDOCAINE 5% (LIDODERM) PATCH TD SCH (16:28)
[2022-01-12] MEDS ORDERED: metFORMIN (GLUCOPHAGE) 500MG TAB PO SCH (18:00)
[2022-01-12 18:12] VITALS: BP 130/77
[2022-01-12] MEDS ORDERED: OLANZapine 5 MG TAB PO SCH (21:00)
[2022-01-12] MEDS ORDERED: **NOTE PATIENT COMMENT** MISC XX SCH (21:00)
[2022-01-12] MEDS: ACETAMINOPHEN TAB 650MG DOSE (2X325MG) PO PRN (21:39)
[2022-01-12 22:15] VITALS: BP 130/77
[2022-01-13] MEDS: OLANZapine ORAL DISINTEGRATING TAB 5MG PO PRN (03:12)
[2022-01-13] MEDS: CEPACOL LOZENGE PO PRN (04:25)
[2022-01-13] MEDS: ACETAMINOPHEN TAB 650MG DOSE (2X325MG) PO PRN (04:26)
[2022-01-13 04:30] VITALS: BP 114/60
[2022-01-13 07:01] VITALS: BP 143/74
[2022-01-13] MEDS ORDERED: buPROPion **SR TABLET** (ZYBAN) 150MG PO SCH (09:00)
[2022-01-13] MEDS ORDERED: FERROUS SULFATE 325MG TAB PO SCH (09:00)
[2022-01-13] MEDS: LIDOCAINE 5% (LIDODERM) PATCH TD SCH (09:18)
[2022-01-13] MEDS: MULTIVITAMINS/MINERALS THERAP 1 TAB PO SCH (09:18)
[2022-01-13] MEDS: TOPIRAMATE (TopAMAX) 25 MG TAB PO SCH (09:18)
[2022-01-13] MEDS: PANTOPRAZOLE 40MG TAB (PROTONIX) PO SCH (09:18)
[2022-01-13] MEDS: DOCUSATE SODIUM 100MG CAPSULE PO SCH (09:18)
[2022-01-13] MEDS: CETIRIZINE (ZyrTEC) 10 MG TAB PO SCH (09:18)
[2022-01-13] MEDS: PARoxetine 20MG TABLET PO SCH (09:18)
[2022-01-13] MEDS: METHADONE 10MG TAB PO SCH (09:19)
[2022-01-13] MEDS ORDERED: METH-1177 PO (15:07)
[2022-01-13] MEDS ORDERED: METH5TA PO (15:07)
[2022-01-13] MEDS ORDERED: OLAN1TAB16 PO (15:07)
[2022-01-13] MEDS ORDERED: LIDO5TD TD (15:07)
[2022-01-13] MEDS ORDERED: COLA100C5 PO (15:07)
[2022-01-13 16:20] VITALS: BP 142/82
[2022-01-13 16:36] VITALS: BP 124/73
[2022-01-14] MEDS ORDERED: METHADONE 10MG TAB PO SCH (09:00)
[2022-01-14] MEDS ORDERED: METHADONE 5MG TAB PO SCH (09:00)
== END 2022-01-13 16:20 | disposition short-term general hospital (02) | DRG 750 ==
LOC: M ED 13:57 → M ED INP 13:58 → M PSY 01-12 00:02
PROVIDERS: ADMIT Student in an Organized Health Care Education/Training Program; ATTEND Student in an Organized Health Care Education/Training Program
DX: F25.0 Schizoaffective disorder, bipolar type (principal); J96.11 Chronic respiratory failure with hypoxia; F43.10 Post-traumatic stress disorder, unspecified; F60.89 Other specific personality disorders; M79.7 Fibromyalgia; G47.33 Obstructive sleep apnea (adult) (pediatric); F10.11 Alcohol abuse, in remission; R53.81 Other malaise; I10 Essential (primary) hypertension; G43.909 Migraine, unspecified, not intractable, without status migrainosus; Z81.1 Family history of alcohol abuse and dependence; Z88.8 Allergy status to other drugs, medicaments and biological substances; Z81.3 Family history of other psychoactive substance abuse and dependence; Z62.810 Personal history of physical and sexual abuse in childhood; Z79.84 Long term (current) use of oral hypoglycemic drugs; Z79.899 Other long term (current) drug therapy; Z88.0 Allergy status to penicillin; Z91.040 Latex allergy status

== ENCOUNTER 2022-01-13 15:06 | Inpatient (IN) | payer OTHER ==
[~2022-01-13] VITALS: Ht 162.6 cm; Wt 134.3 kg
[~2022-01-13 15:06] MED LIST changes: +LIDO1CRE2 TOP; +PARO40TA2 PO; +PROP20TA PO; +ROZE8TAB16 PO; +TRAZ-186 PO
[2022-01-13] MEDS ORDERED: METH5TA PO (15:07)
[2022-01-13] MEDS ORDERED: OLAN1TAB16 PO (15:07)
[2022-01-13] MEDS ORDERED: LIDO5TD TD (15:07)
[2022-01-13] MEDS ORDERED: COLA100C5 PO (15:07)
[2022-01-13] MEDS ORDERED: METH-1177 PO (15:07)
[2022-01-13] MEDS ORDERED: ACETAMINOPHEN TAB 650MG DOSE (2X325MG) PO PRN (15:35)
[2022-01-13] MEDS ORDERED: DEXTROSE 50% 50 ML SYRINGE IV PRN (15:40)
[2022-01-13] MEDS ORDERED: GLUCAGON INJ 1MG VIAL SC PRN (15:40)
[2022-01-13] MEDS ORDERED: GLUCOSE 4GM CHEW TABLET PO PRN (15:40)
[2022-01-13 16:36] VITALS: BP 124/73
[2022-01-13 17:07] LABS: HEMATOCRIT 42.5 % (36.0-47.0); HEMOGLOBIN 12.7 g/dl (12.0-15.5); MEAN CORPUSCULAR HEMOGLOBIN 28.5 pg (27.0-33.0); MEAN CORPUSCULAR HGB CONC 29.9 g/dl (32.0-36.5); MEAN CORPUSCULAR VOLUME 95.5 fl (80.0-96.0); PLATELET COUNT, AUTOMATED 268 10^3/uL (150-450); RED BLOOD COUNT 4.45 10^6/uL (4.00-5.40); WHITE BLOOD COUNT 8.6 10^3/uL (4.0-10.0)
[2022-01-13 17:10] LABS: ABG BASE EXCESS 10.5 (-2.0-2.0); ABG HCO3 39.7 MEQ/L (22.0-26.0); ABG O2 SATURATION 98.1 % (95.0-99.0); ABG PARTIAL PRESSURE O2 108.4 mmHg (75.0-100.0); ABG STANDARD HCO3 34.3 MEQ/L (22.0-26.0); ABG TOTAL CO2 42.1 MEQ/L (22.0-29.0); ABG pH (ARTERIAL) 7.325 UNITS (7.350-7.450)
[2022-01-13 17:22] LABS: INR 1.01; PROTHROMBIN TIME 13.7 SECONDS (12.7-14.5)
[2022-01-13] MEDS ORDERED: INSULIN LISPRO (NovoLOG) PER UNIT SC SCH ×2 (17:30→21:00)
[2022-01-13 17:45] LABS: ALT/SGPT 16 U/L (12-78); BILIRUBIN,TOTAL 0.7 MG/DL (0.2-1.0); BLOOD UREA NITROGEN 7 MG/DL (7-18); CARBON DIOXIDE LEVEL 43 MEQ/L (21-32); CHLORIDE LEVEL 98 MEQ/L (98-107); CREATININE FOR GFR 0.98 MG/DL (0.55-1.30); GLOMERULAR FILTRATION RATE > 60.0 (>58); GLUCOSE, FASTING 123 MG/DL (70-100); POTASSIUM SERUM 3.1 MEQ/L (3.5-5.1); SODIUM LEVEL 141 MEQ/L (136-145); TOTAL PROTEIN 6.3 GM/DL (6.4-8.2)
[2022-01-13] MEDS ORDERED: HOME MED LIST COMPLETE! XX SCH (17:45)
[2022-01-13] MEDS ORDERED: ONDANSETRON 4MG TAB PO PRN (17:50)
[2022-01-13] MEDS ORDERED: MIRALAX *UNIT DOSE* 17GM PACKET PO PRN (17:50)
[2022-01-13] MEDS ORDERED: LEVALBUTEROL HFA 45MCG/ACT 15 GM INHALER INH PRN (17:50)
[2022-01-13] MEDS ORDERED: IBUPROFEN 600MG TAB PO PRN (17:50)
[2022-01-13 19:45] VITALS: BP 151/83
[2022-01-13] MEDS: ENOXAPARIN 40MG/0.4ML SYRINGE (J1650 PER 10MG) SC SCH (20:37)
[2022-01-13] MEDS: OLANZapine 5 MG TAB PO SCH (20:37)
[2022-01-13] MEDS: DOXAZOSIN MESYLATE 1 MG TAB PO SCH (20:38)
[2022-01-13] MEDS: RAMELTEON 8 MG TAB (ROZEREM) PO SCH (20:38)
[2022-01-13] MEDS: SENOKOT S TAB PO SCH (20:38)
[2022-01-13] MEDS: **NOTE PATIENT COMMENT** MISC XX SCH (20:38)
[2022-01-13 21:53] VITALS: O2SAT 92
[2022-01-14 05:22] VITALS: BP 112/69
[2022-01-14] MEDS ORDERED: POTASSIUM CHLORIDE 10MEQ SR TABLET PO ONE (07:30)
[2022-01-14] MEDS: METHADONE 10MG TAB PO SCH (08:38)
[2022-01-14] MEDS: LIDOCAINE 5% (LIDODERM) PATCH TD SCH (08:38)
[2022-01-14] MEDS: PANTOPRAZOLE 40MG TAB (PROTONIX) PO SCH (08:38)
[2022-01-14] MEDS: METHADONE 5MG TAB PO SCH (08:39)
[2022-01-14] MEDS: PARoxetine 20MG TABLET PO SCH (08:39)
[2022-01-14] MEDS: MULTIVITAMINS/MINERALS THERAP 1 TAB PO SCH (08:39)
[2022-01-14] MEDS: CETIRIZINE (ZyrTEC) 10 MG TAB PO SCH (08:39)
[2022-01-14] MEDS: SENOKOT S TAB PO SCH ×2 (08:39→20:24)
[2022-01-14] MEDS ORDERED: ISOVUE-370 76% 100ML VIAL As Ordered ONE ×2 (08:46→13:52)
[2022-01-14 08:52] LABS: HEMATOCRIT 44.6 % (36.0-47.0); HEMOGLOBIN 12.9 g/dl (12.0-15.5); MEAN CORPUSCULAR HEMOGLOBIN 28.5 pg (27.0-33.0); MEAN CORPUSCULAR HGB CONC 28.9 g/dl (32.0-36.5); MEAN CORPUSCULAR VOLUME 98.7 fl (80.0-96.0); PLATELET COUNT, AUTOMATED 252 10^3/uL (150-450); RED BLOOD COUNT 4.52 10^6/uL (4.00-5.40); WHITE BLOOD COUNT 8.8 10^3/uL (4.0-10.0)
[2022-01-14 09:14] LABS: BLOOD UREA NITROGEN 8 MG/DL (7-18); CALCIUM LEVEL 8.6 MG/DL (8.5-10.1); CARBON DIOXIDE LEVEL 39 MEQ/L (21-32); CHLORIDE LEVEL 100 MEQ/L (98-107); CREATININE FOR GFR 0.98 MG/DL (0.55-1.30); GLOMERULAR FILTRATION RATE > 60.0 (>58); GLUCOSE, FASTING 150 MG/DL (70-100); POTASSIUM SERUM 3.6 MEQ/L (3.5-5.1); SODIUM LEVEL 142 MEQ/L (136-145)
[2022-01-14 14:00] VITALS: BP 133/86
[2022-01-14 16:08] VITALS: O2SAT 96
[2022-01-14] MEDS: RAMELTEON 8 MG TAB (ROZEREM) PO SCH (20:20)
[2022-01-14] MEDS: ENOXAPARIN 40MG/0.4ML SYRINGE (J1650 PER 10MG) SC SCH (20:20)
[2022-01-14] MEDS: OLANZapine 5 MG TAB PO SCH (20:24)
[2022-01-14] MEDS: **NOTE PATIENT COMMENT** MISC XX SCH (20:24)
[2022-01-14 20:49] VITALS: BP 109/78
[2022-01-14] MEDS: DOXAZOSIN MESYLATE 1 MG TAB PO SCH (20:49)
[2022-01-14 20:55] VITALS: BP 109/78
[2022-01-14 23:37] VITALS: O2SAT 93
[2022-01-15 05:29] VITALS: BP 110/70
[2022-01-15 06:32] LABS: HEMATOCRIT 42.8 % (36.0-47.0); HEMOGLOBIN 12.4 g/dl (12.0-15.5); MEAN CORPUSCULAR HEMOGLOBIN 28.8 pg (27.0-33.0); MEAN CORPUSCULAR VOLUME 99.5 fl (80.0-96.0); PLATELET COUNT, AUTOMATED 253 10^3/uL (150-450); WHITE BLOOD COUNT 8.2 10^3/uL (4.0-10.0)
[2022-01-15 06:53] LABS: BLOOD UREA NITROGEN 8 MG/DL (7-18); CALCIUM LEVEL 8.9 MG/DL (8.5-10.1); CARBON DIOXIDE LEVEL 38 MEQ/L (21-32); CHLORIDE LEVEL 101 MEQ/L (98-107); CREATININE FOR GFR 0.94 MG/DL (0.55-1.30); GLOMERULAR FILTRATION RATE > 60.0 (>58); GLUCOSE, FASTING 116 MG/DL (70-100); SODIUM LEVEL 144 MEQ/L (136-145)
[2022-01-15] MEDS ORDERED: MOM 30ML SUSPENSION UDC PO PRN (07:50)
[2022-01-15] MEDS: MULTIVITAMINS/MINERALS THERAP 1 TAB PO SCH (09:00)
[2022-01-15] MEDS: SENOKOT S TAB PO SCH (09:00)
[2022-01-15] MEDS: LIDOCAINE 5% (LIDODERM) PATCH TD SCH (09:00)
[2022-01-15] MEDS: PARoxetine 20MG TABLET PO SCH (09:00)
[2022-01-15] MEDS ORDERED: MIRALAX *UNIT DOSE* 17GM PACKET PO SCH (09:00)
[2022-01-15] MEDS: CETIRIZINE (ZyrTEC) 10 MG TAB PO SCH (09:00)
[2022-01-15] MEDS: PANTOPRAZOLE 40MG TAB (PROTONIX) PO SCH (09:00)
[2022-01-15] MEDS ORDERED: FERROUS SULFATE 325MG TAB PO SCH (09:00)
[2022-01-15] MEDS: METHADONE 5MG TAB PO SCH (09:01)
[2022-01-15] MEDS: METHADONE 10MG TAB PO SCH (09:01)
== END 2022-01-15 14:20 | disposition home or self-care (01) | DRG 133 ==
LOC: M MSPAV 16:25
PROVIDERS: ADMIT Internal Medicine; ATTEND Internal Medicine
DX: J96.11 Chronic respiratory failure with hypoxia (principal); Z99.81 Dependence on supplemental oxygen; F25.0 Schizoaffective disorder, bipolar type; U09.9 Post COVID-19 condition, unspecified; F41.9 Anxiety disorder, unspecified; G43.909 Migraine, unspecified, not intractable, without status migrainosus; G47.33 Obstructive sleep apnea (adult) (pediatric); R53.81 Other malaise; M79.7 Fibromyalgia; J45.909 Unspecified asthma, uncomplicated; G47.429 Narcolepsy in conditions classified elsewhere without cataplexy; F43.10 Post-traumatic stress disorder, unspecified; Z79.82 Long term (current) use of aspirin; Z79.84 Long term (current) use of oral hypoglycemic drugs; K59.00 Constipation, unspecified; Z79.899 Other long term (current) drug therapy; Z88.0 Allergy status to penicillin; Z88.1 Allergy status to other antibiotic agents; Z88.8 Allergy status to other drugs, medicaments and biological substances; Z91.040 Latex allergy status; Z90.49 Acquired absence of other specified parts of digestive tract

== ENCOUNTER 2022-01-21 22:43 | Emergency (ER) | payer OTHER ==
[~2022-01-21] VITALS: Ht 160 cm; Wt 135.4 kg
[~2022-01-21 22:43] MED LIST changes: +METH5TA PO; +OLAN1TAB16 PO
[2022-01-21] MEDS ORDERED: TRAZ-186 PO (22:54)
[2022-01-22] MEDS ORDERED: KETOROLAC 60MG 2ML VIAL IM ONE (01:35)
[2022-01-22 02:22] VITALS: BP 124/73
== END 2022-01-22 02:33 | disposition home or self-care (01) ==
LOC: M ED 22:43
DX: S82.842A Displaced bimalleolar fracture of left lower leg, initial encounter for closed fracture (principal); X50.9XXA Other and unspecified overexertion or strenuous movements or postures, initial encounter; Y92.018 Other place in single-family (private) house as the place of occurrence of the external cause; I10 Essential (primary) hypertension; J45.909 Unspecified asthma, uncomplicated; E78.5 Hyperlipidemia, unspecified; M79.7 Fibromyalgia; F31.9 Bipolar disorder, unspecified; F32.A Depression, unspecified; F41.9 Anxiety disorder, unspecified; F90.9 Attention-deficit hyperactivity disorder, unspecified type; K21.9 Gastro-esophageal reflux disease without esophagitis; Z87.19 Personal history of other diseases of the digestive system; Z79.899 Other long term (current) drug therapy; Z79.84 Long term (current) use of oral hypoglycemic drugs; Z79.890 Hormone replacement therapy; Z88.0 Allergy status to penicillin; Z88.8 Allergy status to other drugs, medicaments and biological substances; Z91.040 Latex allergy status
CPT/HCPCS: 29505; 73590; 73610; 73630; 96372; 99284; J1885

== ENCOUNTER 2022-03-06 09:56 | Inpatient (IN) | payer OTHER ==
[~2022-03-06] VITALS: Ht 162.6 cm; Wt 138.2 kg
[2022-03-06] MEDS ORDERED: METH-1175 PO (10:10)
[2022-03-06 11:23] LABS: ABG BASE EXCESS 20.6 (-2.0-2.0); ABG O2 SATURATION 98.2 % (95.0-99.0); ABG PARTIAL PRESSURE O2 111.3 mmHg (75.0-100.0); ABG STANDARD HCO3 45.1 MEQ/L (22.0-26.0); ABG TOTAL CO2 53.7 MEQ/L (22.0-29.0); ABG pH (ARTERIAL) 7.367 UNITS (7.350-7.450)
[2022-03-06 11:25] LABS: ABG PARTIAL PRESSURE CO2 90.8 mmHg (35.0-45.0)
[2022-03-06 12:59] LABS: BASO # 0.1 10^3/uL (0.0-0.2); BASO % 0.6 % (0.0-1.0); EOS # 0.2 10^3/uL (0.0-0.5); EOS % 1.9 % (0.0-3.0); HEMATOCRIT 45.1 % (36.0-47.0); HEMOGLOBIN 13.2 g/dl (12.0-15.5); LYMPH # 2.1 10^3/uL (1.5-5.0); LYMPH % 21.8 % (24.0-44.0); MEAN CORPUSCULAR HGB CONC 29.3 g/dl (32.0-36.5); MEAN CORPUSCULAR VOLUME 95.6 fl (80.0-96.0); MONO # 0.6 10^3/uL (0.0-0.8); MONO % 5.7 % (2.0-8.0); NEUTROPHILS # 6.8 10^3/uL (1.5-8.5); NEUTROPHILS % 69.6 % (36.0-66.0); PLATELET COUNT, AUTOMATED 244 10^3/uL (150-450); RED BLOOD COUNT 4.72 10^6/uL (4.00-5.40); WHITE BLOOD COUNT 9.7 10^3/uL (4.0-10.0)
[2022-03-06 14:03] LABS: ABG BASE EXCESS 15.6 (-2.0-2.0); ABG HCO3 44.6 MEQ/L (22.0-26.0); ABG O2 SATURATION 95.5 % (95.0-99.0); ABG PARTIAL PRESSURE O2 75.7 mmHg (75.0-100.0); ABG STANDARD HCO3 39.5 MEQ/L (22.0-26.0); ABG TOTAL CO2 46.9 MEQ/L (22.0-29.0); ABG pH (ARTERIAL) 7.381 UNITS (7.350-7.450)
[2022-03-06 14:07] LABS: ABG PARTIAL PRESSURE CO2 76.9 mmHg (35.0-45.0)
[2022-03-06 14:48] LABS: ALBUMIN 2.7 GM/DL (3.2-5.2); ALT/SGPT 21 U/L (12-78); BILIRUBIN,DIRECT < 0.1 MG/DL (0.0-0.2); BILIRUBIN,TOTAL 0.3 MG/DL (0.2-1.0); BLOOD UREA NITROGEN 9 MG/DL (7-18); CALCIUM LEVEL 8.6 MG/DL (8.5-10.1); CHLORIDE LEVEL 90 MEQ/L (98-107); CREATININE FOR GFR 0.76 MG/DL (0.55-1.30); GLOMERULAR FILTRATION RATE > 60.0 (>58); GLUCOSE, FASTING 112 MG/DL (70-100); NT-PRO BNP 144 PG/ML (<125); POTASSIUM SERUM 3.9 MEQ/L (3.5-5.1); SODIUM LEVEL 137 MEQ/L (136-145); THYROXINE (T4) 10.8 UG/DL (4.5-12.0); TOTAL PROTEIN 6.9 GM/DL (6.4-8.2)
[2022-03-06 14:49] LABS: CARBON DIOXIDE LEVEL 48 MEQ/L (21-32)
[2022-03-06] MEDS ORDERED: TRAZ-186 PO (15:31)
[2022-03-06] MEDS ORDERED: HYDR-3490 PO (15:31)
[2022-03-06] MEDS ORDERED: BENZ0.5T23 PO (15:31)
[2022-03-06] MEDS ORDERED: ABIL1INJ2 IM (15:31)
[2022-03-06] MEDS ORDERED: VITA100093 PO (15:31)
[2022-03-06] MEDS ORDERED: HOME MED LIST COMPLETE! XX SCH (15:35)
[2022-03-06] MEDS ORDERED: FUROSEMIDE 20MG/2ML VIAL (J1940) IV ONE (16:15)
[2022-03-06] MEDS: FUROSEMIDE 40MG/4ML VIAL (J1940) IV SCH (16:33)
[2022-03-06 19:03] VITALS: BP 124/75
[2022-03-06 20:00] VITALS: BP 114/55
[2022-03-06] MEDS: ENOXAPARIN 40MG/0.4ML SYRINGE (J1650 PER 10MG) SC SCH (20:19)
[2022-03-06] MEDS: traZODone 50 MG TAB PO SCH (20:20)
[2022-03-06] MEDS: SENOKOT S TAB PO SCH (20:20)
[2022-03-06] MEDS: PARoxetine 20MG TABLET PO SCH (20:20)
[2022-03-06] MEDS: DOXAZOSIN MESYLATE 1 MG TAB PO SCH (20:20)
[2022-03-06] MEDS: BENZTROPINE 0.5 MG TAB PO SCH (20:21)
[2022-03-07] VITALS (7 sets, daily range): BP systolic 105–131; BP diastolic 59–76
[2022-03-07 05:58] LABS: HEMATOCRIT 42.1 % (36.0-47.0); HEMOGLOBIN 12.7 g/dl (12.0-15.5); MEAN CORPUSCULAR HEMOGLOBIN 27.9 pg (27.0-33.0); MEAN CORPUSCULAR HGB CONC 30.2 g/dl (32.0-36.5); MEAN CORPUSCULAR VOLUME 92.5 fl (80.0-96.0); PLATELET COUNT, AUTOMATED 250 10^3/uL (150-450); RED BLOOD COUNT 4.55 10^6/uL (4.00-5.40); WHITE BLOOD COUNT 12.2 10^3/uL (4.0-10.0)
[2022-03-07 06:10] LABS: ABG BASE EXCESS 15.4 (-2.0-2.0); ABG HCO3 44.6 MEQ/L (22.0-26.0); ABG O2 SATURATION 95.1 % (95.0-99.0); ABG PARTIAL PRESSURE O2 74.1 mmHg (75.0-100.0); ABG STANDARD HCO3 39.3 MEQ/L (22.0-26.0); ABG pH (ARTERIAL) 7.372 UNITS (7.350-7.450)
[2022-03-07 06:14] LABS: ABG PARTIAL PRESSURE CO2 78.6 mmHg (35.0-45.0)
[2022-03-07 06:38] LABS: BLOOD UREA NITROGEN 10 MG/DL (7-18); CARBON DIOXIDE LEVEL 42 MEQ/L (21-32); CHLORIDE LEVEL 89 MEQ/L (98-107); CREATININE FOR GFR 1.04 MG/DL (0.55-1.30); GLOMERULAR FILTRATION RATE > 60.0 (>58); GLUCOSE, FASTING 116 MG/DL (70-100); POTASSIUM SERUM 2.9 MEQ/L (3.5-5.1); SODIUM LEVEL 134 MEQ/L (136-145)
[2022-03-07] MEDS ORDERED: POTASSIUM CHLORIDE 10MEQ SR TABLET PO ONE ×2 (06:45→12:00)
[2022-03-07] MEDS: KCL 10MEQ/100ML SWI (KRUN) 10 MEQ in IV 1 EA IV SCH ×5 (07:01→10:00)
[2022-03-07 07:53] LABS: MAGNESIUM LEVEL 1.9 MG/DL (1.8-2.4)
[2022-03-07] MEDS: FUROSEMIDE 40MG/4ML VIAL (J1940) IV SCH (08:40)
[2022-03-07] MEDS: SENOKOT S TAB PO SCH ×2 (08:40→20:40)
[2022-03-07] MEDS: PANTOPRAZOLE 40MG TAB (PROTONIX) PO SCH (08:41)
[2022-03-07] MEDS: FERROUS SULFATE 325MG TAB PO SCH (08:41)
[2022-03-07] MEDS: CETIRIZINE (ZyrTEC) 10 MG TAB PO SCH (08:43)
[2022-03-07] MEDS: VITAMIN D 1,000 INTERNATIONAL UNITS TABLET PO SCH (08:43)
[2022-03-07] MEDS: METHADONE 5MG TAB PO SCH (08:50)
[2022-03-07] MEDS: METHADONE 10MG TAB PO SCH (08:50)
[2022-03-07] MEDS ORDERED: MIRALAX *UNIT DOSE* 17GM PACKET PO PRN (09:10)
[2022-03-07] MEDS ORDERED: ACETAMINOPHEN TAB 650MG DOSE (2X325MG) PO PRN (09:15)
[2022-03-07] MEDS ORDERED: ONDANSETRON 4MG TAB PO PRN (09:20)
[2022-03-07] MEDS ORDERED: acetaZOLAMIDE 250MG TAB PO ONE (13:00)
[2022-03-07] MEDS: PARoxetine 20MG TABLET PO SCH (20:37)
[2022-03-07] MEDS: traZODone 50 MG TAB PO SCH (20:39)
[2022-03-07] MEDS: BENZTROPINE 0.5 MG TAB PO SCH (20:51)
[2022-03-07] MEDS: ENOXAPARIN 40MG/0.4ML SYRINGE (J1650 PER 10MG) SC SCH (20:52)
[2022-03-07] MEDS ORDERED: LOSARTAN 25 MG TAB PO SCH (21:00)
[2022-03-07] MEDS: DOXAZOSIN MESYLATE 1 MG TAB PO SCH (21:00)
[2022-03-08 00:40] VITALS: BP 132/73
[2022-03-08 04:00] VITALS: BP 121/61
[2022-03-08 06:03] LABS: ABG BASE EXCESS 10.5 (-2.0-2.0); ABG HCO3 39.9 MEQ/L (22.0-26.0); ABG O2 SATURATION 95.4 % (95.0-99.0); ABG PARTIAL PRESSURE O2 78.3 mmHg (75.0-100.0); ABG STANDARD HCO3 34.2 MEQ/L (22.0-26.0); ABG TOTAL CO2 42.4 MEQ/L (22.0-29.0); ABG pH (ARTERIAL) 7.325 UNITS (7.350-7.450)
[2022-03-08 06:06] LABS: ABG PARTIAL PRESSURE CO2 78.4 mmHg (35.0-45.0)
[2022-03-08 06:09] LABS: BASO # 0.1 10^3/uL (0.0-0.2); BASO % 0.6 % (0.0-1.0); EOS # 0.3 10^3/uL (0.0-0.5); EOS % 2.5 % (0.0-3.0); HEMATOCRIT 44.4 % (36.0-47.0); HEMOGLOBIN 13.3 g/dl (12.0-15.5); LYMPH # 2.4 10^3/uL (1.5-5.0); LYMPH % 21.6 % (24.0-44.0); MEAN CORPUSCULAR HEMOGLOBIN 27.6 pg (27.0-33.0); MEAN CORPUSCULAR VOLUME 92.1 fl (80.0-96.0); MONO # 0.7 10^3/uL (0.0-0.8); MONO % 6.8 % (2.0-8.0); NEUTROPHILS # 7.4 10^3/uL (1.5-8.5); NEUTROPHILS % 67.9 % (36.0-66.0); PLATELET COUNT, AUTOMATED 247 10^3/uL (150-450); RED BLOOD COUNT 4.82 10^6/uL (4.00-5.40); WHITE BLOOD COUNT 10.9 10^3/uL (4.0-10.0)
[2022-03-08 06:39] LABS: BLOOD UREA NITROGEN 13 MG/DL (7-18); CALCIUM LEVEL 8.9 MG/DL (8.5-10.1); CARBON DIOXIDE LEVEL 39 MEQ/L (21-32); CHLORIDE LEVEL 96 MEQ/L (98-107); CREATININE FOR GFR 0.96 MG/DL (0.55-1.30); GLOMERULAR FILTRATION RATE > 60.0 (>58); GLUCOSE, FASTING 116 MG/DL (70-100); POTASSIUM SERUM 3.6 MEQ/L (3.5-5.1); SODIUM LEVEL 138 MEQ/L (136-145)
[2022-03-08 07:47] VITALS: BP 123/61
[2022-03-08] MEDS: METHADONE 5MG TAB PO SCH (08:44)
[2022-03-08] MEDS: FERROUS SULFATE 325MG TAB PO SCH (08:44)
[2022-03-08] MEDS: SENOKOT S TAB PO SCH (08:44)
[2022-03-08] MEDS: METHADONE 10MG TAB PO SCH (08:44)
[2022-03-08] MEDS: CETIRIZINE (ZyrTEC) 10 MG TAB PO SCH (08:45)
[2022-03-08] MEDS: PANTOPRAZOLE 40MG TAB (PROTONIX) PO SCH (08:45)
[2022-03-08] MEDS: VITAMIN D 1,000 INTERNATIONAL UNITS TABLET PO SCH (08:45)
[2022-03-08] MEDS: FUROSEMIDE 40MG/4ML VIAL (J1940) IV SCH (08:45)
[2022-03-08] MEDS ORDERED: COZA1TAB PO ×2 (10:02→10:14)
[2022-03-08] MEDS ORDERED: FURO40TA2 PO ×2 (10:02→10:14)
== END 2022-03-08 12:05 | disposition home or self-care (01) | DRG 133 ==
LOC: M ED 09:56 → M ED INP 16:05 → ENRESERV 17:03 → M PCU 18:54
PROVIDERS: ADMIT Internal Medicine; ATTEND Internal Medicine
DX: J96.21 Acute and chronic respiratory failure with hypoxia (principal); E87.4 Mixed disorder of acid-base balance; I27.20 Pulmonary hypertension, unspecified; E66.2 Morbid (severe) obesity with alveolar hypoventilation; F11.20 Opioid dependence, uncomplicated; F43.10 Post-traumatic stress disorder, unspecified; M79.7 Fibromyalgia; F31.9 Bipolar disorder, unspecified; I10 Essential (primary) hypertension; J96.22 Acute and chronic respiratory failure with hypercapnia; J98.4 Other disorders of lung; Z88.0 Allergy status to penicillin; Z88.8 Allergy status to other drugs, medicaments and biological substances; Z91.040 Latex allergy status; Z90.49 Acquired absence of other specified parts of digestive tract; Z79.899 Other long term (current) drug therapy

== ENCOUNTER 2022-05-09 13:42 | Emergency (ER) | payer OTHER ==
[~2022-05-09] VITALS: Ht 162.6 cm; Wt 144.6 kg
[~2022-05-09 13:42] MED LIST changes: +BENZ0.5T23 PO; +COZA1TAB PO; +FURO40TA2 PO; +METH-1175 PO; +VITA100093 PO
[2022-05-09 13:43] VITALS: BP 146/85
[2022-05-09 16:45] LABS: BASO # 0.1 10^3/uL (0.0-0.2); BASO % 0.5 % (0.0-1.0); EOS # 0.2 10^3/uL (0.0-0.5); EOS % 2.1 % (0.0-3.0); HEMATOCRIT 41.4 % (36.0-47.0); HEMOGLOBIN 11.9 g/dl (12.0-15.5); LYMPH # 1.9 10^3/uL (1.5-5.0); LYMPH % 18.7 % (24.0-44.0); MEAN CORPUSCULAR HEMOGLOBIN 27.2 pg (27.0-33.0); MEAN CORPUSCULAR HGB CONC 28.7 g/dl (32.0-36.5); MEAN CORPUSCULAR VOLUME 94.7 fl (80.0-96.0); MONO # 0.6 10^3/uL (0.0-0.8); MONO % 6.2 % (2.0-8.0); NEUTROPHILS # 7.4 10^3/uL (1.5-8.5); NEUTROPHILS % 72.2 % (36.0-66.0); PLATELET COUNT, AUTOMATED 256 10^3/uL (150-450); RED BLOOD COUNT 4.37 10^6/uL (4.00-5.40); WHITE BLOOD COUNT 10.3 10^3/uL (4.0-10.0)
[2022-05-09 17:14] LABS: ALT/SGPT 15 U/L (12-78); BILIRUBIN,DIRECT < 0.1 MG/DL (0.0-0.2); BILIRUBIN,TOTAL 0.2 MG/DL (0.2-1.0); BLOOD UREA NITROGEN 10 MG/DL (7-18); CALCIUM LEVEL 8.7 MG/DL (8.5-10.1); CARBON DIOXIDE LEVEL 46 MEQ/L (21-32); CHLORIDE LEVEL 92 MEQ/L (98-107); CREATININE FOR GFR 0.91 MG/DL (0.55-1.30); GLOMERULAR FILTRATION RATE > 60.0 (>58); GLUCOSE, FASTING 108 MG/DL (70-100); NT-PRO BNP 54 PG/ML (<125); POTASSIUM SERUM 4.1 MEQ/L (3.5-5.1); SODIUM LEVEL 137 MEQ/L (136-145); TOTAL PROTEIN 7.2 GM/DL (6.4-8.2)
== END 2022-05-09 19:19 | disposition left against medical advice (07) ==
LOC: M ED 13:42
DX: Z53.21 Procedure and treatment not carried out due to patient leaving prior to being seen by health care provider (principal)

== ENCOUNTER 2023-01-12 13:17 | Emergency (ER) | payer OTHER ==
[~2023-01-12] VITALS: Ht 162.6 cm; Wt 139.6 kg
[~2023-01-12 13:17] MED LIST changes: -BENZ-52 PO; +BENZ0.5T2 PO; -BENZ0.5T23 PO; +BENZ1TAB5 PO; -PAXI20TA29 PO; +PAXI20TA30 PO; -PAXI40TA10 PO; +PAXI40TA12 PO
[2023-01-12 13:19] VITALS: TEMP 96.1
[2023-01-12 15:07] LABS: BASO # 0.1 10^3/uL (0.0-0.2); BASO % 0.4 % (0.0-1.0); EOS # 0.2 10^3/uL (0.0-0.5); EOS % 1.3 % (0.0-3.0); HEMATOCRIT 43.8 % (36.0-47.0); HEMOGLOBIN 13.4 g/dl (12.0-15.5); LYMPH # 2.2 10^3/uL (1.5-5.0); LYMPH % 13.5 % (24.0-44.0); MEAN CORPUSCULAR HEMOGLOBIN 27.6 pg (27.0-33.0); MEAN CORPUSCULAR HGB CONC 30.6 g/dl (32.0-36.5); MEAN CORPUSCULAR VOLUME 90.3 fl (80.0-96.0); MONO # 0.9 10^3/uL (0.0-0.8); MONO % 5.1 % (2.0-8.0); NEUTROPHILS # 13.1 10^3/uL (1.5-8.5); NEUTROPHILS % 79.3 % (36.0-66.0); PLATELET COUNT, AUTOMATED 330 10^3/uL (150-450); RED BLOOD COUNT 4.85 10^6/uL (4.00-5.40); WHITE BLOOD COUNT 16.5 10^3/uL (4.0-10.0)
[2023-01-12] MEDS ORDERED: FLUO20CA22 (15:26)
[2023-01-12] MEDS ORDERED: AZO1CAP PO (15:26)
[2023-01-12] MEDS ORDERED: CLON-412 (15:26)
[2023-01-12] MEDS ORDERED: PROP20TA72 (15:26)
[2023-01-12] MEDS ORDERED: AMPH1CAP9 (15:26)
[2023-01-12] MEDS ORDERED: HYDR-3490 (15:26)
[2023-01-12 15:31] LABS: APPEARANCE, URINE HAZY (CLEAR); BACTERIA, URINE AUTO 1+ (NEGATIVE); BILIRUBIN, URINE AUTO NEGATIVE (NEGATIVE); BLOOD, URINE BLOOD NEGATIVE (NEGATIVE); COLOR, URINE YELLOW (YELLOW); GLUCOSE, URINE (UA) AUTO NEGATIVE (NEGATIVE); KETONE, URINE AUTO NEGATIVE (NEGATIVE); LEUKOCYTE ESTERASE, URINE AUTO 2+ (NEGATIVE); MUCUS, URINE SMALL (NEGATIVE); NITRITE, URINE AUTO NEGATIVE (NEGATIVE); PROTEIN, URINE AUTO NEGATIVE (NEGATIVE); RBC, URINE AUTO 0 /HPF (0-3); SPECIFIC GRAVITY URINE AUTO 1.011 (1.002-1.035); SQUAMOUS EPITHELIAL CELL UR AU 3 /HPF (0-6); UROBILINOGEN, URINE AUTO 0.2 mg/dL (0.0-2.0); WBC, URINE AUTO 50 /HPF (0-3)
[2023-01-12 15:34] LABS: ALBUMIN 3.2 G/DL (3.2-5.2); ALKALINE PHOSPHATASE 124 U/L (46-116); ALT/SGPT 15 U/L (7.0-40); AST/SGOT 12 U/L (<34); BILIRUBIN,DIRECT 0.1 MG/DL (<0.4); BILIRUBIN,TOTAL 0.4 MG/DL (0.3-1.2); BLOOD UREA NITROGEN 10 MG/DL (9-23); CARBON DIOXIDE LEVEL > 40.0 MMOL/L (20-31); CHLORIDE LEVEL 90 MMOL/L (98-107); CREATININE FOR GFR 0.73 MG/DL (0.55-1.30); GLOMERULAR FILTRATION RATE > 60.0 (>58); GLUCOSE, FASTING 137 MG/DL (60-100); POTASSIUM SERUM 3.3 MMOL/L (3.5-5.1); SODIUM LEVEL 137 MMOL/L (136-145); TOTAL PROTEIN 7.3 G/DL (5.7-8.2)
[2023-01-12] MEDS ORDERED: NITR1CAP11 PO (16:53)
[2023-01-12 17:02] VITALS: BP 137/93; O2SAT 97
== END 2023-01-12 17:04 | disposition home or self-care (01) ==
LOC: M ED 13:17
DX: I10 Essential (primary) hypertension (principal); N30.00 Acute cystitis without hematuria; J45.909 Unspecified asthma, uncomplicated; Z99.81 Dependence on supplemental oxygen; Z87.891 Personal history of nicotine dependence; Z88.0 Allergy status to penicillin; Z88.8 Allergy status to other drugs, medicaments and biological substances; Z91.040 Latex allergy status; Z79.899 Other long term (current) drug therapy; Z79.84 Long term (current) use of oral hypoglycemic drugs

== ENCOUNTER 2023-01-14 06:53 | Emergency (ER) | payer OTHER ==
[~2023-01-14] VITALS: Ht 162.6 cm; Wt 137.8 kg
[~2023-01-14 06:53] MED LIST changes: +AMPH1CAP9; +AZO1CAP PO; +CLON-412; +FLUO20CA22; +HYDR-3490; +NITR1CAP11 PO
[2023-01-14 09:21] LABS: BASO # 0.1 10^3/uL (0.0-0.2); BASO % 0.4 % (0.0-1.0); EOS # 0.2 10^3/uL (0.0-0.5); EOS % 1.8 % (0.0-3.0); HEMATOCRIT 41.2 % (36.0-47.0); HEMOGLOBIN 12.7 g/dl (12.0-15.5); LYMPH # 1.8 10^3/uL (1.5-5.0); LYMPH % 14.1 % (24.0-44.0); MEAN CORPUSCULAR HEMOGLOBIN 27.9 pg (27.0-33.0); MEAN CORPUSCULAR HGB CONC 30.8 g/dl (32.0-36.5); MEAN CORPUSCULAR VOLUME 90.5 fl (80.0-96.0); MONO # 0.8 10^3/uL (0.0-0.8); MONO % 6.2 % (2.0-8.0); NEUTROPHILS # 9.6 10^3/uL (1.5-8.5); NEUTROPHILS % 77.1 % (36.0-66.0); PLATELET COUNT, AUTOMATED 284 10^3/uL (150-450); RED BLOOD COUNT 4.55 10^6/uL (4.00-5.40); WHITE BLOOD COUNT 12.4 10^3/uL (4.0-10.0)
[2023-01-14 09:41] LABS: BLOOD UREA NITROGEN 8 MG/DL (9-23); CALCIUM LEVEL 9.5 MG/DL (8.5-10.1); CARBON DIOXIDE LEVEL > 40.0 MMOL/L (20-31); CHLORIDE LEVEL 89 MMOL/L (98-107); GLOMERULAR FILTRATION RATE > 60.0 (>58); GLUCOSE, FASTING 163 MG/DL (60-100); SODIUM LEVEL 137 MMOL/L (136-145)
[2023-01-14 11:39] VITALS: BP 122/84; TEMP 97.4; O2SAT 97
== END 2023-01-14 11:50 | disposition home or self-care (01) ==
LOC: M ED 06:53
DX: I10 Essential (primary) hypertension (principal); J96.10 Chronic respiratory failure, unspecified whether with hypoxia or hypercapnia; G40.909 Epilepsy, unspecified, not intractable, without status epilepticus; M79.7 Fibromyalgia; Z88.0 Allergy status to penicillin; Z88.8 Allergy status to other drugs, medicaments and biological substances; Z91.040 Latex allergy status; Z99.81 Dependence on supplemental oxygen; Z79.899 Other long term (current) drug therapy; Z79.84 Long term (current) use of oral hypoglycemic drugs; Z79.51 Long term (current) use of inhaled steroids

== ENCOUNTER → 2023-05-11 | Outpatient (CLI) | payer OTHER ==
[~2023-05-11] MED LIST changes: -COZA1TAB PO; -GABA-283 PO; +GABA-284 PO; +LOSA-527 PO
[2023-05-11 11:55] LABS: HEMATOCRIT 42.8 % (36.0-47.0); MEAN CORPUSCULAR HGB CONC 30.4 g/dl (32.0-36.5); MEAN CORPUSCULAR VOLUME 92.2 fl (80.0-96.0); PLATELET COUNT, AUTOMATED 301 10^3/uL (150-450); RED BLOOD COUNT 4.64 10^6/uL (4.00-5.40); WHITE BLOOD COUNT 11.3 10^3/uL (4.0-10.0)
[2023-05-11 12:21] LABS: HEMOGLOBIN A1c 5.5 % (4.0-6.0); MALB URINE SIEMENS < 3.0 MG/L; MAU/CREAT RATIO 8.8 MCG/MG (0.0-30.0)
[2023-05-11 12:23] LABS: FERRITIN 37.5 NG/ML (7.3-270.7)
[2023-05-11 12:24] LABS: TOTAL 25(OH) VITAMIN D 31.8 NG/ML (20.0-100.0)
[2023-05-11 12:26] LABS: ALKALINE PHOSPHATASE 130 U/L (46-116); ALT/SGPT 14 U/L (7.0-40); AST/SGOT 14 U/L (<34); BILIRUBIN,TOTAL 0.3 MG/DL (0.3-1.2); BLOOD UREA NITROGEN 9 MG/DL (9-23); CALCIUM LEVEL 8.8 MG/DL (8.5-10.1); CARBON DIOXIDE LEVEL > 40.0 MMOL/L (20-31); CHLORIDE LEVEL 90 MMOL/L (98-107); CHOLESTEROL LEVEL 159 MG/DL (<200); CHOLESTEROL RISK RATIO 4.28 (<5); CREATININE FOR GFR 0.86 MG/DL (0.55-1.30); GLOMERULAR FILTRATION RATE > 60.0 (>58); GLUCOSE, FASTING 117 MG/DL (60-100); HDL CHOLESTEROL 37.1 MG/DL (>40); LDL CHOLESTEROL 96.9 MG/DL (<100); NON-HDL-C 121.9 MG/DL; POTASSIUM SERUM 3.3 MMOL/L (3.5-5.1); SODIUM LEVEL 138 MMOL/L (136-145); TRIGLYCERIDES LEVEL 125 MG/DL (<150)
== END ==
LOC: M LAB 10:04
PROVIDERS: ATTEND Family Medicine
DX: E66.2 Morbid (severe) obesity with alveolar hypoventilation (principal); D50.9 Iron deficiency anemia, unspecified; I10 Essential (primary) hypertension; E11.9 Type 2 diabetes mellitus without complications

== ENCOUNTER → 2023-05-11 | Outpatient (CLI) | payer OTHER ==
[2023-05-11 11:55] LABS: HEMATOCRIT 42.4 % (36.0-47.0); HEMOGLOBIN 12.9 g/dl (12.0-15.5); MEAN CORPUSCULAR HEMOGLOBIN 27.9 pg (27.0-33.0); MEAN CORPUSCULAR HGB CONC 30.4 g/dl (32.0-36.5); MEAN CORPUSCULAR VOLUME 91.8 fl (80.0-96.0); PLATELET COUNT, AUTOMATED 295 10^3/uL (150-450); RED BLOOD COUNT 4.62 10^6/uL (4.00-5.40); WHITE BLOOD COUNT 11.5 10^3/uL (4.0-10.0)
[2023-05-11 12:26] LABS: HCG, SERUM QUALITATIVE NEGATIVE (NEGATIVE)
[2023-05-11 12:49] LABS: HIV 1&2 SCREEN NEGATIVE (NEGATIVE)
[2023-05-11 12:57] LABS: HEPATITIS C VIRUS ABY INDEX 0.05 INDEX (<0.8)
[2023-05-11 13:03] LABS: ALBUMIN 3.1 G/DL (3.2-5.2); ALKALINE PHOSPHATASE 132 U/L (46-116); ALT/SGPT 14 U/L (7.0-40); AST/SGOT 13 U/L (<34); BILIRUBIN,TOTAL 0.3 MG/DL (0.3-1.2); BLOOD UREA NITROGEN 9 MG/DL (9-23); CALCIUM LEVEL 8.8 MG/DL (8.5-10.1); CARBON DIOXIDE LEVEL > 40.0 MMOL/L (20-31); CHLORIDE LEVEL 89 MMOL/L (98-107); CREATININE FOR GFR 0.84 MG/DL (0.55-1.30); GLOMERULAR FILTRATION RATE > 60.0 (>58); GLUCOSE, FASTING 117 MG/DL (60-100); POTASSIUM SERUM 3.3 MMOL/L (3.5-5.1); SODIUM LEVEL 138 MMOL/L (136-145)
[2023-05-11 13:48] LABS: GC DNA AMPLIFICATION NEGATIVE (NEGATIVE)
== END ==
LOC: M EKG 10:01
PROVIDERS: ATTEND Family Medicine
DX: F11.20 Opioid dependence, uncomplicated (principal); R00.1 Bradycardia, unspecified

== ENCOUNTER → 2023-07-03 | Outpatient (CLI) | payer OTHER | LOC: M SLEEP 20:00 | PROVIDERS: ATTEND Nurse Practitioner Adult Health | DX: G47.33 Obstructive sleep apnea (adult) (pediatric) (principal) ==

== ENCOUNTER → 2023-07-04 | Outpatient (CLI) | payer OTHER ==
[2023-07-04 06:46] LABS: ABG BASE EXCESS 17.5 (-2.0-2.0); ABG HCO3 44.9 MMOL/L (22.0-26.0); ABG O2 SATURATION 92.5 % (95.0-99.0); ABG PARTIAL PRESSURE O2 62.6 mmHg (75.0-100.0); ABG STANDARD HCO3 41.5 MMOL/L. (22.0-26.0); ABG TOTAL CO2 46.9 MMOL/L (22.0-29.0); ABG pH (ARTERIAL) 7.454 UNITS (7.350-7.450)
[2023-07-04 06:49] LABS: ABG PARTIAL PRESSURE CO2 65.5 mmHg (35.0-45.0)
== END ==
LOC: M LAB 06:05
PROVIDERS: ATTEND Nurse Practitioner Adult Health
DX: G47.33 Obstructive sleep apnea (adult) (pediatric) (principal)

== ENCOUNTER → 2023-08-17 | Outpatient (CLI) | payer OTHER | LOC: M CARPUL 11:08 | PROVIDERS: ATTEND Family Medicine | DX: R00.0 Tachycardia, unspecified (principal); I27.20 Pulmonary hypertension, unspecified ==

== ENCOUNTER → 2024-02-07 | Outpatient (REF) | payer OTHER ==
[~2024-02-07] MED LIST changes: +FLUO-365; +FLUO-365 PO; -FLUO20CA22; -FLUO20CA22 PO; -KLON0.5T PO; +KLON0.5T8 PO; -KLON1TAB PO; +KLON1TAB13 PO; +MONT5TAB7 PO; +NITR100C3 PO; -NITR1CAP11 PO; -SING5CHW23 PO
== END ==
LOC: M SFHCPLAZ 17:47
PROVIDERS: ATTEND Family Medicine
DX: R56.9 Unspecified convulsions (principal); E11.9 Type 2 diabetes mellitus without complications; R00.2 Palpitations

== ENCOUNTER → 2024-02-07 | Outpatient (CLI) | payer OTHER ==
[2024-02-07 18:16] LABS: HEMATOCRIT 42.8 % (36.0-47.0); HEMOGLOBIN 12.8 g/dl (12.0-15.5); MEAN CORPUSCULAR HEMOGLOBIN 27.2 pg (27.0-33.0); MEAN CORPUSCULAR HGB CONC 29.9 g/dl (32.0-36.5); MEAN CORPUSCULAR VOLUME 90.9 fl (80.0-96.0); PLATELET COUNT, AUTOMATED 292 10^3/uL (150-450); RED BLOOD COUNT 4.71 10^6/uL (4.00-5.40); WHITE BLOOD COUNT 12.7 10^3/uL (4.0-10.0)
[2024-02-07 18:38] LABS: HEMOGLOBIN A1c 5.7 % (4.0-6.0)
[2024-02-07 18:45] LABS: THYROID STIMULATING HORMONE 0.905 uIU/ML (0.55-4.78)
[2024-02-07 18:46] LABS: FREE T4 1.17 NG/DL (0.89-1.76)
[2024-02-07 18:47] LABS: ALBUMIN 2.9 G/DL (3.2-5.2); ALKALINE PHOSPHATASE 195 U/L (46-116); ALT/SGPT 13 U/L (7.0-40); AST/SGOT 11 U/L (<34); BILIRUBIN,TOTAL 0.3 MG/DL (0.3-1.2); BLOOD UREA NITROGEN 9 MG/DL (9-23); CALCIUM LEVEL 9.1 MG/DL (8.5-10.1); CARBON DIOXIDE LEVEL > 40.0 MMOL/L (20-31); CHLORIDE LEVEL 87 MMOL/L (98-107); CREATININE FOR GFR 0.94 MG/DL (0.55-1.30); GLOMERULAR FILTRATION RATE > 60.0 (>58); GLUCOSE, FASTING 109 MG/DL (60-100); MAGNESIUM LEVEL 2.1 MG/DL (1.8-2.4); POTASSIUM SERUM 3.1 MMOL/L (3.5-5.1); SODIUM LEVEL 137 MMOL/L (136-145); TOTAL PROTEIN 6.9 G/DL (5.7-8.2)
== END ==
LOC: M PLALAB 16:01
PROVIDERS: ATTEND Family Medicine
DX: R56.9 Unspecified convulsions (principal); E11.9 Type 2 diabetes mellitus without complications; R00.2 Palpitations

== ENCOUNTER → 2024-05-07 | Outpatient (CLI) | payer OTHER ==
[~2024-05-07] MED LIST changes: +GABA-1172 PO; -GABA-282 PO
[2024-05-07 13:39] LABS: HEMATOCRIT 39.6 % (36.0-47.0); HEMOGLOBIN 11.7 g/dl (12.0-15.5); MEAN CORPUSCULAR HEMOGLOBIN 27.5 pg (27.0-33.0); MEAN CORPUSCULAR HGB CONC 29.5 g/dl (32.0-36.5); PLATELET COUNT, AUTOMATED 283 10^3/uL (150-450); RED BLOOD COUNT 4.26 10^6/uL (4.00-5.40)
== END ==
LOC: M RAD 12:38
PROVIDERS: ATTEND Physician Assistant Medical
DX: J06.9 Acute upper respiratory infection, unspecified (principal); J98.11 Atelectasis

== ENCOUNTER → 2024-05-14 | Outpatient (CLI) | payer OTHER | LOC: M PLAIMG 11:56 | PROVIDERS: ATTEND Family Medicine | DX: M25.572 Pain in left ankle and joints of left foot (principal); R22.42 Localized swelling, mass and lump, left lower limb ==

== ENCOUNTER 2024-07-30 13:05 | Emergency (ER) | payer OTHER ==
[~2024-07-30] VITALS: Ht 162.6 cm; Wt 125.2 kg
[~2024-07-30 13:05] MED LIST changes: -CLON-412; +CLON-412 PO; -CYCL5TAB PO; +CYCL5TAB4 PO; -FLUO-365; -LEVA1.2519 NEB; +LEVA1.2526 NEB; -LIDO1CRE2 EX; -LIDO1CRE2 TOP; +LIDO4CRE12 EX; +LIDO4CRE12 TOP
[2024-07-30 13:55] LABS: HEMOGLOBIN 12.2 g/dl (12.0-15.5); MEAN CORPUSCULAR HEMOGLOBIN 27.1 pg (27.0-33.0); MEAN CORPUSCULAR HGB CONC 29.8 g/dl (32.0-36.5); MEAN CORPUSCULAR VOLUME 91.1 fl (80.0-96.0); PLATELET COUNT, AUTOMATED 283 10^3/uL (150-450); WHITE BLOOD COUNT 12.9 10^3/uL (4.0-10.0)
[2024-07-30 14:23] LABS: ETHYL ALCOHOL (ETHANOL) < 0.003 % (0.000-0.010)
[2024-07-30 14:25] LABS: SALICYLATE LEVEL < 3.0 MG/DL (<30)
[2024-07-30 14:27] LABS: THYROID STIMULATING HORMONE 1.419 uIU/ML (0.55-4.78)
[2024-07-30 14:39] LABS: ALKALINE PHOSPHATASE 131 U/L (35-104); ALT/SGPT 18 U/L (7.0-40); AST/SGOT 17 U/L (<34); BILIRUBIN,DIRECT < 0.1 MG/DL (<0.4); BILIRUBIN,TOTAL 0.2 MG/DL (0.3-1.2); BLOOD UREA NITROGEN 11 MG/DL (9-23); CALCIUM LEVEL 8.9 MG/DL (8.5-10.1); CARBON DIOXIDE LEVEL > 40.0 MMOL/L (20-31); CHLORIDE LEVEL 85 MMOL/L (98-107); CREATININE FOR GFR 0.73 MG/DL (0.55-1.30); GLOMERULAR FILTRATION RATE > 60.0 (>58); GLUCOSE, FASTING 176 MG/DL (60-100); POTASSIUM SERUM 2.9 MMOL/L (3.5-5.1); SODIUM LEVEL 139 MMOL/L (136-145); TOTAL PROTEIN 7.1 G/DL (5.7-8.2)
[2024-07-30 14:59] LABS: AMPHETAMINES LEVEL URINE NEGATIVE (NEGATIVE); BARBITURATES URINE NEGATIVE (NEGATIVE); BENZODIAZEPINES URINE NEGATIVE (NEGATIVE); COCAINE METABOLITE URINE NEGATIVE (NEGATIVE); OPIATES URINE NEGATIVE (NEGATIVE); PHENCYCLIDINE URINE NEGATIVE (NEGATIVE)
[2024-07-30 15:03] LABS: CANNABINOIDS URINE POSITIVE (NEGATIVE); METHADONE URINE POSITIVE (NEGATIVE)
[2024-07-30] MEDS: POTASSIUM CHLORIDE 10MEQ SR TABLET PO ONE (15:34)
[2024-07-30] MEDS ORDERED: POTA-150 PO (15:39)
[2024-07-30 15:47] VITALS: BP 141/79; TEMP 97.9; O2SAT 93
== END 2024-07-30 15:50 | disposition home or self-care (01) ==
LOC: M ED 13:05
DX: F32.A Depression, unspecified (principal); E87.6 Hypokalemia; I10 Essential (primary) hypertension; F31.9 Bipolar disorder, unspecified; M79.7 Fibromyalgia; E78.5 Hyperlipidemia, unspecified; K21.9 Gastro-esophageal reflux disease without esophagitis; F90.9 Attention-deficit hyperactivity disorder, unspecified type; F20.9 Schizophrenia, unspecified; Z88.0 Allergy status to penicillin; Z88.8 Allergy status to other drugs, medicaments and biological substances; Z91.040 Latex allergy status; Z79.1 Long term (current) use of non-steroidal anti-inflammatories (NSAID); Z79.84 Long term (current) use of oral hypoglycemic drugs; Z79.810 Long term (current) use of selective estrogen receptor modulators (SERMs); Z79.899 Other long term (current) drug therapy

== ENCOUNTER 2024-08-04 13:16 | Inpatient (IN) | payer OTHER ==
[~2024-08-04] VITALS: Ht 162.6 cm; Wt 124.5 kg
[~2024-08-04 13:16] MED LIST changes: +POTA-150 PO
[2024-08-04 14:22] LABS: HEMATOCRIT 39.3 % (36.0-47.0); HEMOGLOBIN 11.8 g/dl (12.0-15.5); MEAN CORPUSCULAR HEMOGLOBIN 27.6 pg (27.0-33.0); MEAN CORPUSCULAR VOLUME 91.8 fl (80.0-96.0); PLATELET COUNT, AUTOMATED 323 10^3/uL (150-450); RED BLOOD COUNT 4.28 10^6/uL (4.00-5.40); WHITE BLOOD COUNT 13.1 10^3/uL (4.0-10.0)
[2024-08-04 14:39] LABS: AMPHETAMINES LEVEL URINE NEGATIVE (NEGATIVE); BARBITURATES URINE NEGATIVE (NEGATIVE); BENZODIAZEPINES URINE NEGATIVE (NEGATIVE); COCAINE METABOLITE URINE NEGATIVE (NEGATIVE); OPIATES URINE NEGATIVE (NEGATIVE); PHENCYCLIDINE URINE NEGATIVE (NEGATIVE)
[2024-08-04 14:41] LABS: ETHYL ALCOHOL (ETHANOL) 0.005 % (0.000-0.010)
[2024-08-04 14:43] LABS: SALICYLATE LEVEL < 3.0 MG/DL (<30)
[2024-08-04 14:45] LABS: THYROID STIMULATING HORMONE 1.224 uIU/ML (0.55-4.78)
[2024-08-04 14:46] LABS: ALBUMIN 2.8 G/DL (3.2-5.2); ALKALINE PHOSPHATASE 126 U/L (35-104); ALT/SGPT 16 U/L (7.0-40); AST/SGOT 13 U/L (<34); BILIRUBIN,DIRECT < 0.1 MG/DL (<0.4); BILIRUBIN,TOTAL 0.3 MG/DL (0.3-1.2); BLOOD UREA NITROGEN 8 MG/DL (9-23); CALCIUM LEVEL 8.9 MG/DL (8.5-10.1); CANNABINOIDS URINE POSITIVE (NEGATIVE); CARBON DIOXIDE LEVEL > 40.0 MMOL/L (20-31); CHLORIDE LEVEL 85 MMOL/L (98-107); CREATININE FOR GFR 0.81 MG/DL (0.55-1.30); GLOMERULAR FILTRATION RATE > 60.0 (>58); GLUCOSE, FASTING 125 MG/DL (60-100); METHADONE URINE POSITIVE (NEGATIVE); POTASSIUM SERUM 3.1 MMOL/L (3.5-5.1); SODIUM LEVEL 139 MMOL/L (136-145); TOTAL PROTEIN 6.9 G/DL (5.7-8.2)
[2024-08-04] MEDS: POTASSIUM CHLORIDE 10MEQ SR TABLET PO ONE (15:08)
[2024-08-04] MEDS: DOXAZOSIN MESYLATE 1 MG TAB PO ONE (21:00)
[2024-08-04] MEDS: BENZTROPINE 0.5 MG TAB PO ONE (21:00)
[2024-08-04] MEDS: traZODone 50 MG TAB PO ONE (21:00)
[2024-08-04] MEDS: ACETAMINOPHEN 500 MG TAB PO ONE (21:10)
[2024-08-04] MEDS ORDERED: CYCL5TAB4 PO (21:21)
[2024-08-04] MEDS ORDERED: MULT-90 PO (21:21)
[2024-08-04] MEDS ORDERED: HYDR-3363 PO (21:21)
[2024-08-04] MEDS ORDERED: COMBAER6 INH (21:21)
[2024-08-04] MEDS ORDERED: HYDR50TAB PO (21:21)
[2024-08-04] MEDS ORDERED: METF-838 PO (21:21)
[2024-08-04] MEDS ORDERED: METH10CO3 PO (21:21)
[2024-08-04] MEDS ORDERED: ARIP1TAB6 PO (21:21)
[2024-08-04] MEDS ORDERED: POTA-149 PO (21:21)
[2024-08-04] MEDS ORDERED: HOME MED LIST COMPLETE! XX SCH (21:25)
[2024-08-05] MEDS ORDERED: LEVALBUTEROL HFA 45MCG/ACT 15GM INHALER INH PRN ×2 (08:55→15:40)
[2024-08-05] MEDS: metFORMIN XR 500MG TAB *GLUCOPHAGE XR PO SCH (09:00)
[2024-08-05] MEDS: COMBIVENT RESPIMAT 100-20MCG INHALER 4GM INH SCH ×2 (09:00→20:00)
[2024-08-05] MEDS ORDERED: PILL CUTTER 1 EACH XX ONE (09:40)
[2024-08-05] MEDS: SENOKOT S TAB PO SCH (09:43)
[2024-08-05] MEDS: BENZTROPINE 0.5 MG TAB PO SCH (09:43)
[2024-08-05] MEDS: VITAMIN D 1,000 INTERNATIONAL UNITS TABLET PO SCH (09:43)
[2024-08-05] MEDS: PANTOPRAZOLE 40MG TAB (PROTONIX) PO SCH (09:43)
[2024-08-05] MEDS: CETIRIZINE (ZyrTEC) 10 MG TAB PO SCH (09:43)
[2024-08-05] MEDS: POTASSIUM CHLORIDE 10MEQ SR TABLET PO SCH ×2 (09:44→20:04)
[2024-08-05] MEDS: cloNIDine 0.1MG TABLET PO SCH ×2 (09:44→20:11)
[2024-08-05] MEDS: METHADONE 10MG TAB PO SCH (09:45)
[2024-08-05] MEDS: FLUoxetine 20MG CAP PO SCH (09:45)
[2024-08-05] MEDS: PROPRANOLOL 20 MG TAB PO SCH (09:45)
[2024-08-05 15:30] VITALS: BP 113/59; TEMP 97.1; O2SAT 98
[2024-08-05 15:43] LABS: HCG, SERUM QUANTITATIVE < 2.6 MIU/ML (<4.2)
[2024-08-05 16:30] VITALS: O2SAT 97
[2024-08-05] MEDS: traZODone 50 MG TAB PO PRN (20:04)
[2024-08-05] MEDS: SENNA 8.6 MG TAB (SENOKOT) PO SCH (20:11)
[2024-08-05] MEDS: ACETAMINOPHEN 500 MG TAB PO PRN (20:14)
[2024-08-05 20:33] VITALS: O2SAT 91
[2024-08-05] MEDS ORDERED: traZODone 50 MG TAB PO SCH (21:00)
[2024-08-05] MEDS ORDERED: DOXAZOSIN MESYLATE 1 MG TAB PO SCH (21:00)
[2024-08-05] MEDS: DOXAZOSIN MESYLATE 1 MG TAB PO SCH (21:00)
[2024-08-05 21:03] VITALS: O2SAT 100
[2024-08-05] MEDS: traZODone 50 MG TAB PO ONE (21:37)
[2024-08-05] MEDS: IBUPROFEN 400MG TAB PO PRN (23:26)
[2024-08-06 01:12] VITALS: O2SAT 96
[2024-08-06 05:04] VITALS: O2SAT 96
[2024-08-06 06:46] VITALS: BP 138/60; TEMP 96.9; O2SAT 98
[2024-08-06] MEDS: NICOTINE 14 MG/24 HR TRANSDERMAL TD SCH (07:58)
[2024-08-06 08:06] VITALS: BP 128/66; O2SAT 97
[2024-08-06] MEDS: VITAMIN D 1,000 INTERNATIONAL UNITS TABLET PO SCH (08:07)
[2024-08-06] MEDS: PANTOPRAZOLE 40MG TAB (PROTONIX) PO SCH (08:08)
[2024-08-06] MEDS: FLUoxetine 20MG CAP PO SCH (08:08)
[2024-08-06] MEDS: BENZTROPINE 0.5 MG TAB PO SCH (08:08)
[2024-08-06] MEDS: metFORMIN (GLUCOPHAGE) 500MG TAB PO SCH (08:09)
[2024-08-06] MEDS: METHADONE 10MG TAB PO SCH (08:10)
[2024-08-06] MEDS: CETIRIZINE (ZyrTEC) 10 MG TAB PO SCH (08:10)
[2024-08-06 16:10] VITALS: BP 148/83; TEMP 97.9; O2SAT 99
[2024-08-06 20:30] VITALS: O2SAT 96
[2024-08-06] MEDS: DIVALPROEX 250MG TAB PO SCH (20:34)
[2024-08-07 01:15] VITALS: O2SAT 97
[2024-08-07 05:17] VITALS: O2SAT 96
[2024-08-07 06:34] VITALS: TEMP 97.2; O2SAT 96
[2024-08-07] MEDS: ARIPiprazole 10 MG TAB PO SCH (08:47)
[2024-08-07] MEDS: MAALOX 30 ML SUSP *UDC PO PRN (09:41)
[2024-08-07] MEDS: PROPRANOLOL 20 MG TAB PO SCH (10:01)
[2024-08-07 10:30] VITALS: O2SAT 97
[2024-08-07 14:45] VITALS: O2SAT 98
[2024-08-07 16:52] VITALS: BP 117/65; TEMP 97; O2SAT 98
[2024-08-07] MEDS: MOM 30ML SUSPENSION UDC PO PRN (19:12)
[2024-08-08 06:24] VITALS: BP 96/57; TEMP 97; O2SAT 99
[2024-08-08] MEDS: DOCUSATE SODIUM 100MG CAPSULE PO SCH (10:28)
[2024-08-08 10:30] VITALS: O2SAT 96
[2024-08-08 14:30] VITALS: O2SAT 98
[2024-08-08 15:36] VITALS: BP 102/52; TEMP 96.7; O2SAT 97
[2024-08-08] MEDS: hydrOXYzine 50 MG TAB PO PRN (17:05)
[2024-08-08] MEDS: DIVALPROEX 500 MG TAB PO SCH (19:56)
[2024-08-08] MEDS: traZODone 50 MG TAB PO PRN (20:47)
[2024-08-09 06:36] VITALS: BP 138/72; TEMP 97.7; O2SAT 99
[2024-08-09] MEDS: DIVALPROEX 250MG TAB PO SCH (08:32)
[2024-08-09] MEDS ORDERED: ACETAMINOPHEN 500 MG TAB PO PRN (08:55)
[2024-08-09] MEDS: CYCLOBENZAPRINE 5MG TABLET PO PRN (09:37)
[2024-08-09] MEDS: MIRALAX *UNIT DOSE* 17GM PACKET PO PRN (09:38)
[2024-08-09 15:01] VITALS: BP 129/75; TEMP 97.8; O2SAT 97
[2024-08-09] MEDS: IBUPROFEN 600MG TAB PO PRN (18:10)
[2024-08-10 06:34] VITALS: BP 136/76; TEMP 97.1; O2SAT 92
[2024-08-10 08:31] VITALS: BP 136/76
[2024-08-10] MEDS: PILL CUTTER 1 EACH XX PRN (08:37)
[2024-08-10 16:16] VITALS: BP 109/56; TEMP 98.1; O2SAT 95
[2024-08-10 20:46] VITALS: O2SAT 96
[2024-08-11 00:21] VITALS: O2SAT 95
[2024-08-11 04:00] VITALS: O2SAT 94
[2024-08-11 06:40] VITALS: BP 120/63; TEMP 97.9; O2SAT 93
[2024-08-11 08:32] VITALS: BP 137/83; O2SAT 100
[2024-08-11 11:47] VITALS: BP 137/61; TEMP 97; O2SAT 97
[2024-08-11 14:45] VITALS: BP 125/59; TEMP 97.5; O2SAT 96
[2024-08-12 06:30] VITALS: BP 141/64; TEMP 97.6; O2SAT 96
[2024-08-12 08:21] VITALS: BP 119/54
[2024-08-12] MEDS ORDERED: hydrOXYzine 50 MG TAB PO PRN (10:35)
[2024-08-12 16:02] VITALS: BP 109/63; TEMP 97.5; O2SAT 100
[2024-08-12] MEDS: DIVALPROEX 500MG *ER* TAB PO SCH (21:54)
[2024-08-13 06:35] VITALS: BP 118/66; TEMP 98; O2SAT 99
[2024-08-13 08:19] VITALS: BP 105/61
[2024-08-13] MEDS ORDERED: TRAZ-186 PO (10:48)
[2024-08-13] MEDS ORDERED: COLA100C5 PO (10:48)
[2024-08-13] MEDS ORDERED: ABIL10TA9 PO (10:48)
[2024-08-13] MEDS ORDERED: HYDR50TA70 PO (10:48)
[2024-08-13] MEDS ORDERED: DEPA500T2 PO (10:48)
[2024-08-13] MEDS ORDERED: BENZ0.5T2 PO (10:48)
== END 2024-08-13 12:22 | disposition home or self-care (01) | DRG 750 ==
LOC: M ED 13:16 → M ED INP 08-05 13:43 → M PSY 08-05 15:23
PROVIDERS: ADMIT Psychiatry & Neurology Psychiatry; ATTEND Psychiatry & Neurology Psychiatry
DX: F25.0 Schizoaffective disorder, bipolar type (principal); Z99.81 Dependence on supplemental oxygen; R45.851 Suicidal ideations; U09.9 Post COVID-19 condition, unspecified; I10 Essential (primary) hypertension; G25.81 Restless legs syndrome; R45.850 Homicidal ideations; G40.909 Epilepsy, unspecified, not intractable, without status epilepticus; F43.10 Post-traumatic stress disorder, unspecified; F60.89 Other specific personality disorders; M79.7 Fibromyalgia; E78.5 Hyperlipidemia, unspecified; G43.909 Migraine, unspecified, not intractable, without status migrainosus; G89.29 Other chronic pain; E87.6 Hypokalemia; Z91.52 Personal history of nonsuicidal self-harm; Z79.891 Long term (current) use of opiate analgesic; Z81.1 Family history of alcohol abuse and dependence; Z83.3 Family history of diabetes mellitus; Z81.8 Family history of other mental and behavioral disorders; Z79.84 Long term (current) use of oral hypoglycemic drugs; Z79.899 Other long term (current) drug therapy; Z88.0 Allergy status to penicillin; Z88.5 Allergy status to narcotic agent; Z88.8 Allergy status to other drugs, medicaments and biological substances; Z91.040 Latex allergy status; R73.03 Prediabetes; F84.0 Autistic disorder; F41.9 Anxiety disorder, unspecified; F90.9 Attention-deficit hyperactivity disorder, unspecified type; Z91.51 Personal history of suicidal behavior

== ENCOUNTER → 2024-08-20 | Outpatient (REF) | payer OTHER ==
[~2024-08-20] MED LIST changes: +ABIL10TA9 PO; +ARIP1TAB6 PO; +COMBAER6 INH; +DEPA500T2 PO; +HYDR50TAB PO; +METF-838 PO; +METH10CO3 PO; +MULT-90 PO; +POTA-149 PO
[2024-08-20 17:35] LABS: MALB URINE SIEMENS < 3.0 MG/L
[2024-08-20 17:54] LABS: Trichomonas vaginalis (AMP) NOT DETECTED (NEGATIVE)
[2024-08-20 18:18] LABS: GC DNA AMPLIFICATION NEGATIVE (NEGATIVE)
[2024-08-20 18:27] LABS: HEMOGLOBIN A1c 5.8 % (4.0-6.0)
[2024-08-20 18:31] LABS: HIV 1&2 SCREEN NEGATIVE (NEGATIVE)
[2024-08-20 18:38] LABS: HEPATITIS C VIRUS ABY INDEX 0.16 INDEX (<0.8)
[2024-08-20 18:39] LABS: ALBUMIN 3.1 G/DL (3.2-5.2); ALKALINE PHOSPHATASE 97 U/L (35-104); ALT/SGPT 11 U/L (7.0-40); AST/SGOT 9 U/L (<34); BILIRUBIN,TOTAL 0.3 MG/DL (0.3-1.2); BLOOD UREA NITROGEN 11 MG/DL (9-23); CALCIUM LEVEL 8.9 MG/DL (8.5-10.1); CARBON DIOXIDE LEVEL > 40.0 MMOL/L (20-31); CHLORIDE LEVEL 90 MMOL/L (98-107); CHOLESTEROL LEVEL 161 MG/DL (<200); CHOLESTEROL RISK RATIO 3.76 (<5); CREATININE FOR GFR 0.91 MG/DL (0.55-1.30); GLOMERULAR FILTRATION RATE > 60.0 (>58); GLUCOSE, FASTING 84 MG/DL (60-100); HDL CHOLESTEROL 42.8 MG/DL (>40); LDL CHOLESTEROL 87.6 MG/DL (<100); NON-HDL-C 118.2 MG/DL; POTASSIUM SERUM 4.2 MMOL/L (3.5-5.1); SODIUM LEVEL 143 MMOL/L (136-145); THYROID STIMULATING HORMONE 1.623 uIU/ML (0.55-4.78); TOTAL 25(OH) VITAMIN D 45.1 NG/ML (20.0-100.0); TOTAL PROTEIN 7.4 G/DL (5.7-8.2); TRIGLYCERIDES LEVEL 153 MG/DL (<150)
== END ==
LOC: M LAB REF 16:20
PROVIDERS: ATTEND Physician Assistant
DX: I10 Essential (primary) hypertension (principal); Z11.9 Encounter for screening for infectious and parasitic diseases, unspecified; E55.9 Vitamin D deficiency, unspecified; E66.9 Obesity, unspecified